=== PATIENT | female | born 1955 | race Caucasian/White ===

== ENCOUNTER → 2018-09-06 | Outpatient (CLI) | payer MEDICARE, OTHER ==
[~2018-09-06] MED LIST: ALBU3IS INH; AZIT250 PO; Acidophilus La100 GM; Amlodipine Bes2.5 MG PO; BUDE6HFA INH; Citalopram HBr10 MG PO; DELTASONE20 MG PO; DOXY100 PO; Estradiol0.5 MG PO; HORMONES; Hydrocodone-Ap1 EA20 PO; METPHE10 PO; OXYACE5T PO; PRED10 PO; Prednisone20 MG PO; TIOT18 PO; TRAZ100 PO; TRAZ50 PO
[2018-09-06 14:39] LABS: BASOPHILS ABSOLUTE AUTO 0.04 K/mm3 (0.00-0.23); BASOPHILS PERCENT AUTO 0 % (0-2); EOSINOPHILS ABSOLUTE AUTO 0.14 K/mm3 (0.00-0.68); EOSINOPHILS PERCENT AUTO 1 % (0-6); Hematocrit 39.2 % (33.0-51.0); Hemoglobin 12.9 g/dL (11.5-16.0); IMMATURE GRAN ABSOLUTE AUTO 0.05 K/mm3 (0.00-0.10); IMMATURE GRAN PERCENT AUTO 0 % (0-1); LYMPHOCYTES ABSOLUTE AUTO 2.52 K/mm3 (0.84-5.20); LYMPHOCYTES PERCENT AUTO 21 % (21-46); MONOCYTES ABSOLUTE AUTO 0.88 K/mm3 (0.16-1.47); MONOCYTES PERCENT AUTO 7 % (4-13); Mean Corpuscular HGB 31.2 pg (26.0-34.0); Mean Corpuscular HGB Conc 32.9 g/dL (31.5-36.5); Mean Corpuscular Volume 95 fL (80-100); Mean Platelet Volume 10.5 fL (9.1-12.4); NEUTROPHILS ABSOLUTE AUTO 8.39 K/mm3 (1.96-9.15); NEUTROPHILS PERCENT AUTO 70 % (41-73); Platelet Count 185 K/mm3 (150-400); RDW Coefficient Variation 14.2 % (11.7-14.2); RDW Standard Deviation 49.6 fL (35.1-46.3); Red Blood Cell Count 4.14 M/mm3 (3.80-5.20); White Blood Cell Count 12.02 K/mm3 (4.00-11.30)
[2018-09-06 14:57] LABS: Albumin, Blood 3.4 g/dL (3.4-5.0); Albumin/Globulin Ratio 1.1 (0.8-1.8); Bilirubin, Total 0.3 mg/dL (0.1-1.0); Bun/Creatinine Ratio 15.6 (12.0-20.0); Calcium, Blood 9.3 mg/dL (8.5-10.1); Creatinine, Blood 1.22 mg/dL (0.40-1.00); Globulin, Blood 3.1 g/dL (2.2-4.0); Potassium, Blood 4.3 mmol/L (3.5-5.5); Total Protein, Blood 6.5 g/dL (6.4-8.2)
== END | disposition home or self-care (01) ==
LOC: LAB SHORT 14:35 → LAB EV 14:35
PROVIDERS: Family Medicine
DX: R10.11 Right upper quadrant pain (principal)
CPT/HCPCS: 80053; 85025

== ENCOUNTER 2018-09-23 18:40 | Inpatient (IN) | payer MEDICARE, OTHER ==
[~2018-09-23] VITALS: Ht 162.6 cm; Wt 80.6 kg
[~2018-09-23 18:40] MED LIST changes: -Acidophilus La100 GM; -DELTASONE20 MG PO; -DOXY100 PO
[2018-09-23 19:14] LABS: BASOPHILS ABSOLUTE AUTO 0.03 K/mm3 (0.00-0.23); BASOPHILS PERCENT AUTO 1 % (0-2); EOSINOPHILS ABSOLUTE AUTO 0.02 K/mm3 (0.00-0.68); EOSINOPHILS PERCENT AUTO 0 % (0-6); Hematocrit 45.5 % (33.0-51.0); Hemoglobin 14.4 g/dL (11.5-16.0); IMMATURE GRAN ABSOLUTE AUTO 0.01 K/mm3 (0.00-0.10); IMMATURE GRAN PERCENT AUTO 0 % (0-1); LYMPHOCYTES PERCENT AUTO 32 % (21-46); MONOCYTES ABSOLUTE AUTO 0.42 K/mm3 (0.16-1.47); MONOCYTES PERCENT AUTO 8 % (4-13); Mean Corpuscular HGB 31.3 pg (26.0-34.0); Mean Corpuscular HGB Conc 31.6 g/dL (31.5-36.5); Mean Corpuscular Volume 99 fL (80-100); Mean Platelet Volume 10.5 fL (9.1-12.4); NEUTROPHILS ABSOLUTE AUTO 2.96 K/mm3 (1.96-9.15); NEUTROPHILS PERCENT AUTO 59 % (41-73); Platelet Count 180 K/mm3 (150-400); White Blood Cell Count 5.04 K/mm3 (4.00-11.30)
[2018-09-23 19:26] LABS: Alanine Aminotransfer (ALT/SGP 42 U/L (12-78); Albumin, Blood 3.6 g/dL (3.4-5.0); Alk Phos 64 U/L (50-136); Anion Gap 5 mmol/L (6-16); Aspartate Aminotrans (AST/SGOT 28 U/L (12-37); Bilirubin, Total 0.3 mg/dL (0.1-1.0); Blood Urea Nitrogen 11 mg/dL (8-24); Bun/Creatinine Ratio 15.2 (12.0-20.0); CO2, Blood 29 mmol/L (21-32); Calcium, Blood 8.7 mg/dL (8.5-10.1); Chloride, Blood 107 mmol/L (98-108); Creatinine, Blood 0.72 mg/dL (0.40-1.00); Globulin, Blood 3.7 g/dL (2.2-4.0); Glomerular Filtration Rate >60 (60-); Glucose, Blood 94 mg/dL (70-99); Sodium, Blood 141 mmol/L (136-145); Total Protein, Blood 7.3 g/dL (6.4-8.2)
--- NOTE | 2018-09-24 04:19 | NUR ---
SHIFT SUMMARY RECEIVED REPORT FROM ED RN. ARRIVED TO MEDICAL UNIT @ 2206 VIA STRETCHER; ASSISTANCE REQUIRED WITH TRANSFER. HOWEVER, PATIENT CAN AMBULATE WITH 1 ASSIST TO BATHROOM. STEADY GAIT NOTED. ORIENTED TO ROOM AND CALL SYSTEM. A/O X4, ABLE TO MAKE NEEDS KNOWN. COOPERATIVE WITH CARE; HOWEVER, DID INSIST ON BEING FINISHED SO THAT SHE COULD GO TO SLEEP. CALLS AND ANSWERS QUESTIONS APPROPRIATELY; FOREGETFULNESS NOTED AT TIMES. STATED THAT FATHER ABOUT 5 DAYS AGO AND APPEARS DEPRESSED AND ALSO TEARFUL. TELE RUNNING NSR @ 79 PER PCU TRANSPLANT IMMUNOLOGIST. >90% ON 3L VIA NC. C/O PAIN/DISCOMFORT TO L FLANK WHICH SHE INJURED DURING A FALL FROM A LADDER X3 DAYS AGO; MEDICATED PER EMAR. VSS/AFEBRILE. NO ACUTE CHANGES NOTED. BED IN LOWEST POSITION. CALL LIGHT WITHIN REACH. WCTM. REPORT TO ONCOMING RN.
[2018-09-24 04:51] LABS: Hematocrit 41.6 % (33.0-51.0); Hemoglobin 13.3 g/dL (11.5-16.0); Mean Corpuscular HGB 31.2 pg (26.0-34.0); Mean Corpuscular Volume 98 fL (80-100); Mean Platelet Volume 10.4 fL (9.1-12.4); Platelet Count 161 K/mm3 (150-400); RDW Coefficient Variation 13.8 % (11.7-14.2); RDW Standard Deviation 50.4 fL (35.1-46.3); Red Blood Cell Count 4.26 M/mm3 (3.80-5.20); White Blood Cell Count 3.01 K/mm3 (4.00-11.30)
[2018-09-24 05:42] LABS: Alanine Aminotransfer (ALT/SGP 36 U/L (12-78); Albumin, Blood 3.1 g/dL (3.4-5.0); Albumin/Globulin Ratio 0.9 (0.8-1.8); Alk Phos 55 U/L (50-136); Anion Gap 5 mmol/L (6-16); Aspartate Aminotrans (AST/SGOT 22 U/L (12-37); Bilirubin, Total 0.5 mg/dL (0.1-1.0); Blood Urea Nitrogen 15 mg/dL (8-24); Bun/Creatinine Ratio 20.6 (12.0-20.0); CO2, Blood 29 mmol/L (21-32); Calcium, Blood 8.3 mg/dL (8.5-10.1); Chloride, Blood 107 mmol/L (98-108); Creatinine, Blood 0.73 mg/dL (0.40-1.00); Globulin, Blood 3.4 g/dL (2.2-4.0); Glomerular Filtration Rate >60 (60-); Glucose, Blood 158 mg/dL (70-99); Potassium, Blood 4.5 mmol/L (3.5-5.5); Sodium, Blood 141 mmol/L (136-145); Total Protein, Blood 6.5 g/dL (6.4-8.2)
--- NOTE | 2018-09-24 15:25 | NUR ---
SUMMARY PT IS A/O X4, PLEASANT/COOPERATIVE AFFECT. DX COPD EXAC. SHE STATE SHORTNESS OF BREATH SOMEWHAT IMPROVED HOWEVER CONTINUES WITH EXERTION. SBA TO BR. SHE DOES NOT USE O2 @ HOME, HAVE TITRATED DOWN TO 2.5L 93% RT PROVIDING NEB TX'S. LUNGS THIS AM DECREASED, COARSE, SOME UPPER AIRWAY WHEEZE THIS AM HOWEVER NONE SINCE. SHE STATE MINIMAL NATIONAL SALES MANAGER COUGH. SHE HAD L SIDED PAIN THIS AM R/T FALL FROM LADDER @ HOME, PRN NORCO & TYLENOL GIVEN FOR RELIEF. VSS.
--- NOTE | 2018-09-25 07:33 | NUR ---
09/25/18 0600 SLEPT ON AND OFF THIS SHIFT. MEDICATED TWICE FOR "SIDE OF STOMACH" DISCOMFORT. VITALS STABLE. TAKING ORAL INTAKE WELL. UNEVENTFUL NIGHT.
--- NOTE | 2018-09-25 16:09 | NUR ---
SUMMARY PT CONTINUES SOB WITH EXERTION, @ X'S WHILE @ REST. RT PROVIDING NEB TX'S NEEDED. PT STATE HOPEFUL TO GO HOME HOWEVER DR CAMPOS STATE 2 LEAST 1 MORE DAY. HOME O2 EVAL COMPLETED, RT STATE PT BECAME VERY SOB WITH SM AMT EXERT, REQUIRING 1L O2, BIOX 92%. LUNGS VERY DECREASED T/O WITH WHEEZES @ X'S. SHE AMBULATES WITH FWW, SBA, CALLS APPROP. SHE CONTINUES TO REPORT L SIDE PAIN R/T FALL @ HOME, TYLENOL & NORCO GIVEN FOR RELIEF. SHE WAS CONCERNED THAT FEET WERE SWELLING YESTERDAY HOWEVER ONLY TRACE EDEMA NOTED. ENCOURAGED TO ELEVATE @ REST.
--- NOTE | 2018-09-26 04:54 | NUR ---
SHIFT SUMMARY PT HAS RESTED WELL THIS SHIFT. SHE HAS BEEN INDEPENDENT IN THE ROOM. PT ANTICIPAITING DC TODAY AND HAS BEEN SWITCHED TO ORAL PREDNISONE. PT CONTINUES TO BE VERY SOB WITH ANY EXERTION 1.5L O2 IN PLACE. LUNGS WITH EXPIRATORY WHEEZES T/O. SHE CONTINUES TO COMPLAIN OF RIB PAIN R/T THE FALL HE SUSTAINED AT HOME. MEDICATED WITH NORCO WHICH PROIVDED RELIEF. NO ACUTE CHANGES. WILL CONTINUE TO MONITOR AND REPORT TO ONCOMING RN.
[2018-09-26] MEDS ORDERED: DOXY100 PO (15:21)
[2018-09-26] MEDS ORDERED: Acidophilus La100 GM (15:22)
[2018-09-26] MEDS ORDERED: DELTASONE20 MG PO (15:23)
--- NOTE | 2018-09-26 16:24 | NUR ---
PATIENT DISCHARGED TO HOME. NURSE FAXED MEDS TO PHARMACY OF CHOICE. NEW MEDICATIONS WERE GONE OVER WITH PATIENT AND PATIENT EDUCATED REGARDING ADMINISTRATION OF THEM. PATIENT TO HAVE HOME O2 DELIVERED. IV PREVIOUSLY REMOVED. NO SS OF INFECTION NOTED. PATIENT TAKEN OUT BY WC BY NURSE AND TAKEN HOME BY DAUGHTER.
== END 2018-09-26 16:08 | disposition home or self-care (01) | DRG 189 ==
LOC: ER 18:40 → MEDS 21:02 → ENPENDDIS 09-26 14:49 → MEDS 09-26 16:08
PROVIDERS: Emergency Medicine; ADMIT Internal Medicine
DX: J96.01 Acute respiratory failure with hypoxia (principal); J44.1 Chronic obstructive pulmonary disease with (acute) exacerbation; F32.9 Major depressive disorder, single episode, unspecified; F90.9 Attention-deficit hyperactivity disorder, unspecified type; G89.29 Other chronic pain; I10 Essential (primary) hypertension; E66.9 Obesity, unspecified; Z68.29 Body mass index [BMI] 29.0-29.9, adult; Z79.899 Other long term (current) drug therapy
CPT/HCPCS: 36415; 71046; 80053; 83880; 84145; 85025; 85027; 87070; 87205; 93005; 93010; 94640; 94644; 94760; 94761; 96374; 99285-25; J1650; J1956; J2930; J3010

== ENCOUNTER 2019-07-23 06:43 | Day surgery (SDC) | payer MEDICARE, OTHER ==
[~2019-07-23] VITALS: Ht 162.6 cm; Wt 81.0 kg
[~2019-07-23 06:43] MED LIST changes: +AMLO10 PO; +Accuneb1.25 MG/3 INH; +Acidophilus La100 GM; +CITA20 PO; +DELTASONE20 MG PO; +DOXY100 PO; +ESTRADIOL1 MG PO; +FLUT1DIS8 INH; +METPHE10; +Norco 10-325 T1 EACH; +PROAIR RESPICL90 MCG INH; +TUDORZA PRESS400 MCG INH
== END 2019-07-23 09:00 | disposition home or self-care (01) ==
LOC: ORSCSDS 06:43
PROVIDERS: Ophthalmology
PROC: 08RK3JZ Replacement of Left Lens with Synthetic Substitute, Percutaneous Approach (ICD-10-PCS; principal; 2019-07-23 08:00)
DX: H25.12 Age-related nuclear cataract, left eye (principal); I10 Essential (primary) hypertension; M79.7 Fibromyalgia; J44.9 Chronic obstructive pulmonary disease, unspecified; Z87.891 Personal history of nicotine dependence; Z79.899 Other long term (current) drug therapy
CPT/HCPCS: J2250; J2405; J3010; J3301; J7030; V2632

== ENCOUNTER 2020-01-17 22:47 | Inpatient (IN) | payer MEDICARE, OTHER ==
[~2020-01-17] VITALS: Ht 162.6 cm; Wt 82.0 kg
[~2020-01-17 22:47] MED LIST changes: -METPHE10; -Norco 10-325 T1 EACH; +Norco 10-325 T1 EACH PO
[2020-01-17] MEDS ORDERED: Simvastatin20 MG PO (23:28)
[2020-01-17] MEDS ORDERED: Prempro 0.3 MG/1 TAB PO (23:28)
[2020-01-17] MEDS ORDERED: Ritalin10 MG PO (23:28)
[2020-01-17 23:30] LABS: BASOPHILS ABSOLUTE AUTO 0.03 K/mm3 (0.00-0.23); BASOPHILS PERCENT AUTO 0 % (0-2); EOSINOPHILS ABSOLUTE AUTO 0.09 K/mm3 (0.00-0.68); EOSINOPHILS PERCENT AUTO 1 % (0-6); Hematocrit 38.8 % (33.0-51.0); Hemoglobin 12.6 g/dL (11.5-16.0); IMMATURE GRAN ABSOLUTE AUTO 0.04 K/mm3 (0.00-0.10); IMMATURE GRAN PERCENT AUTO 0 % (0-1); LYMPHOCYTES ABSOLUTE AUTO 3.61 K/mm3 (0.84-5.20); LYMPHOCYTES PERCENT AUTO 29 % (21-46); MONOCYTES ABSOLUTE AUTO 0.72 K/mm3 (0.16-1.47); MONOCYTES PERCENT AUTO 6 % (4-13); Mean Corpuscular HGB 30.7 pg (26.0-34.0); Mean Corpuscular HGB Conc 32.5 g/dL (31.5-36.5); Mean Corpuscular Volume 94 fL (80-100); Mean Platelet Volume 10.3 fL (9.1-12.4); NEUTROPHILS ABSOLUTE AUTO 7.82 K/mm3 (1.96-9.15); NEUTROPHILS PERCENT AUTO 64 % (41-73); Platelet Count 168 K/mm3 (150-400); RDW Coefficient Variation 13.9 % (11.7-14.2); RDW Standard Deviation 48.2 fL (35.1-46.3); Red Blood Cell Count 4.11 M/mm3 (3.80-5.20); White Blood Cell Count 12.31 K/mm3 (4.00-11.30)
[2020-01-17 23:50] LABS: Alanine Aminotransfer (ALT/SGP 46 U/L (12-78); Albumin, Blood 3.6 g/dL (3.4-5.0); Alk Phos 72 U/L (50-136); Anion Gap 4 mmol/L (6-16); Aspartate Aminotrans (AST/SGOT 24 U/L (12-37); Bilirubin, Total 0.2 mg/dL (0.1-1.0); Blood Urea Nitrogen 19 mg/dL (8-24); Bun/Creatinine Ratio 28.4 (12.0-20.0); CO2, Blood 34 mmol/L (21-32); Calcium, Blood 8.7 mg/dL (8.5-10.1); Chloride, Blood 102 mmol/L (98-108); Creatinine, Blood 0.67 mg/dL (0.40-1.00); Globulin, Blood 3.6 g/dL (2.2-4.0); Glomerular Filtration Rate >60 (60-); Glucose, Blood 168 mg/dL (70-99); Potassium, Blood 3.9 mmol/L (3.5-5.5); Sodium, Blood 140 mmol/L (136-145); Total Protein, Blood 7.2 g/dL (6.4-8.2); Troponin I <0.015 ng/mL (0.000-0.040)
[2020-01-18 04:32] LABS: BASOPHILS ABSOLUTE AUTO 0.01 K/mm3 (0.00-0.23); BASOPHILS PERCENT AUTO 0 % (0-2); EOSINOPHILS PERCENT AUTO 0 % (0-6); Hematocrit 36.6 % (33.0-51.0); Hemoglobin 11.6 g/dL (11.5-16.0); IMMATURE GRAN ABSOLUTE AUTO 0.02 K/mm3 (0.00-0.10); IMMATURE GRAN PERCENT AUTO 0 % (0-1); LYMPHOCYTES ABSOLUTE AUTO 0.29 K/mm3 (0.84-5.20); LYMPHOCYTES PERCENT AUTO 3 % (21-46); MONOCYTES ABSOLUTE AUTO 0.07 K/mm3 (0.16-1.47); MONOCYTES PERCENT AUTO 1 % (4-13); Mean Corpuscular HGB 30.1 pg (26.0-34.0); Mean Corpuscular HGB Conc 31.7 g/dL (31.5-36.5); Mean Corpuscular Volume 95 fL (80-100); Mean Platelet Volume 10.5 fL (9.1-12.4); NEUTROPHILS PERCENT AUTO 96 % (41-73); Platelet Count 159 K/mm3 (150-400); Red Blood Cell Count 3.85 M/mm3 (3.80-5.20); White Blood Cell Count 9.89 K/mm3 (4.00-11.30)
[2020-01-18 04:56] LABS: Alanine Aminotransfer (ALT/SGP 45 U/L (12-78); Albumin, Blood 3.4 g/dL (3.4-5.0); Alk Phos 67 U/L (50-136); Anion Gap 5 mmol/L (6-16); Aspartate Aminotrans (AST/SGOT 21 U/L (12-37); Bilirubin, Total 0.2 mg/dL (0.1-1.0); Blood Urea Nitrogen 23 mg/dL (8-24); Bun/Creatinine Ratio 36.1 (12.0-20.0); CO2, Blood 31 mmol/L (21-32); Calcium, Blood 8.9 mg/dL (8.5-10.1); Chloride, Blood 102 mmol/L (98-108); Creatinine, Blood 0.64 mg/dL (0.40-1.00); Globulin, Blood 3.4 g/dL (2.2-4.0); Glomerular Filtration Rate >60 (60-); Glucose, Blood 187 mg/dL (70-99); Potassium, Blood 4.2 mmol/L (3.5-5.5); Sodium, Blood 138 mmol/L (136-145); Total Protein, Blood 6.8 g/dL (6.4-8.2)
[2020-01-18 07:53] LABS: Adenovirus Not Detected (NOT DETECT); Bordetella pertussis Not Detected (NOT DETECT); Chlamydophila pneumoniae Not Detected (NOT DETECT); Coronavirus 229E Not Detected (NOT DETECT); Coronavirus HKU1 Not Detected (NOT DETECT); Coronavirus NL63 Not Detected (NOT DETECT); Coronavirus OC43 Not Detected (NOT DETECT); Human Metapneumovirus Not Detected (NOT DETECT); Human Rhinovirus/Enterovirus Not Detected (NOT DETECT); Influenza A/2009-H1 Not Detected (NOT DETECT); Influenza A/H1 Not Detected (NOT DETECT); Influenza A/H3 Not Detected (NOT DETECT); Influenza B Not Detected (NOT DETECT); Mycoplasma pneumoniae Not Detected (NOT DETECT); Parainfluenza Virus 1 Not Detected (NOT DETECT); Parainfluenza Virus 2 Not Detected (NOT DETECT); Parainfluenza Virus 3 Not Detected (NOT DETECT); Parainfluenza Virus 4 Not Detected (NOT DETECT); Respiratory Syncytial Virus Not Detected (NOT DETECT)
--- NOTE | 2020-01-18 18:09 | NUR ---
SHIFT SUMMARY PT AXO, PLEASANT AND COOPERATIVE THOUGH WITHDRAWN. VSS. PT SLEEPING THROUGHOUT THE DAY, SAYS SHE'S VERY TIRED. CONTINUES TO HAVE PAIN IN ABDOMEN AND JOINTS. PT SOB WITH EXERTION, REQUESTED O2 TURNED UP TO 3L. PT 95 % ON 3L AT THIS TIME. SINUS AT 93 PER RESIDENTIAL INSTRUCTOR. PT COMPLAINED OF PAIN 02/04, MEDICATED PER EMAR. NEW IV PLACED THIS SHIFT, SALINE LOCKED AT THIS TIME. PT UP AD JUAN TO BATHROOM. BED IN LOW POSITION, CALL LIGHT WITHIN REACH.
--- NOTE | 2020-01-19 00:50 | NUR ---
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 Results of Abd US completed in ER not on chart by end of this shift. Patient states she is actually feeling much better since Med nebulizers and IV steroids given to her in ER. APAP given to her for pain shortly before she fell asleep this morning.
--- NOTE | 2020-01-19 05:11 | NUR ---
BIOFUELS PLANT SUPERINTENDENT SUMMARY Slept well overnight. Up independently in room. Minimal complaints of discomfort after receiving schedule home pain med at HS. Patient still wearing 3L 02 via nasal [place] which is her home 02 level. Lung sounds remain dim with wheezes.
[2020-01-19] MEDS ORDERED: Prednisone10 MG PO (09:49)
--- NOTE | 2020-01-19 12:27 | NUR ---
DISCHARGE SUMMARY PT DISCHARGED TO HOME. PT LEFT ROOM PRIOR TO THIS NOTE AT ABOUT 1150 VIA WHEELCHAIR WITH CARDROOM WORKER ESCORT. IV DC'D AND BELONGINGS RETURNED. PT EDUCATED ON ALL DISCHARGE INSTRUCTIONS, ALL QUESTIONS ANSWERED. PT AGREES TO FOLLOW UP WITH PCP AND TO TAKE MEDICATIONS PRESCRIBED.
== END 2020-01-19 11:54 | disposition home or self-care (01) | DRG 190 ==
LOC: ER 22:47 → MEDS 22:48
PROVIDERS: Emergency Medicine; ADMIT Internal Medicine
DX: J44.1 Chronic obstructive pulmonary disease with (acute) exacerbation (principal); J96.21 Acute and chronic respiratory failure with hypoxia; M79.7 Fibromyalgia; I10 Essential (primary) hypertension; Z87.891 Personal history of nicotine dependence; E66.9 Obesity, unspecified; Z68.30 Body mass index [BMI] 30.0-30.9, adult; F90.9 Attention-deficit hyperactivity disorder, unspecified type; G89.29 Other chronic pain; Z99.81 Dependence on supplemental oxygen; F41.9 Anxiety disorder, unspecified
CPT/HCPCS: 0099U; 36415; 71045; 76705; 80053; 83880; 84484; 85025; 93005; 93010; 94640; 94644; 94760; 99285-25; A9270; A9270-GY; J1650; J2920; J2930

== ENCOUNTER 2020-01-28 10:23 | Inpatient (IN) | payer MEDICARE, OTHER ==
[~2020-01-28] VITALS: Ht 154.9 cm; Wt 84.8 kg
[~2020-01-28 10:23] MED LIST changes: -AMLO10 PO; -CITA20 PO; -Norco 10-325 T1 EACH PO; +Prednisone10 MG PO; -TUDORZA PRESS400 MCG INH
[2020-01-28 11:09] LABS: BASOPHILS ABSOLUTE AUTO 0.04 K/mm3 (0.00-0.23); BASOPHILS PERCENT AUTO 0 % (0-2); EOSINOPHILS ABSOLUTE AUTO 0.08 K/mm3 (0.00-0.68); EOSINOPHILS PERCENT AUTO 1 % (0-6); Hematocrit 43.2 % (33.0-51.0); IMMATURE GRAN ABSOLUTE AUTO 0.05 K/mm3 (0.00-0.10); IMMATURE GRAN PERCENT AUTO 0 % (0-1); LYMPHOCYTES ABSOLUTE AUTO 5.28 K/mm3 (0.84-5.20); LYMPHOCYTES PERCENT AUTO 42 % (21-46); MONOCYTES ABSOLUTE AUTO 0.72 K/mm3 (0.16-1.47); MONOCYTES PERCENT AUTO 6 % (4-13); Mean Corpuscular HGB 31.2 pg (26.0-34.0); Mean Corpuscular HGB Conc 32.4 g/dL (31.5-36.5); Mean Corpuscular Volume 96 fL (80-100); Mean Platelet Volume 10.5 fL (9.1-12.4); NEUTROPHILS ABSOLUTE AUTO 6.49 K/mm3 (1.96-9.15); NEUTROPHILS PERCENT AUTO 51 % (41-73); Platelet Count 208 K/mm3 (150-400); RDW Standard Deviation 53.2 fL (35.1-46.3); Red Blood Cell Count 4.49 M/mm3 (3.80-5.20); White Blood Cell Count 12.66 K/mm3 (4.00-11.30)
[2020-01-28 11:26] LABS: Alanine Aminotransfer (ALT/SGP 36 U/L (12-78); Albumin, Blood 3.9 g/dL (3.4-5.0); Alk Phos 59 U/L (50-136); Anion Gap 3 mmol/L (6-16); Aspartate Aminotrans (AST/SGOT 18 U/L (12-37); Bilirubin, Total 0.7 mg/dL (0.1-1.0); Blood Urea Nitrogen 17 mg/dL (8-24); CO2, Blood 34 mmol/L (21-32); Chloride, Blood 103 mmol/L (98-108); Creatinine, Blood 0.77 mg/dL (0.40-1.00); Globulin, Blood 3.9 g/dL (2.2-4.0); Glomerular Filtration Rate >60 (60-); Glucose, Blood 95 mg/dL (70-99); Potassium, Blood 3.6 mmol/L (3.5-5.5); Sodium, Blood 140 mmol/L (136-145); Total Protein, Blood 7.8 g/dL (6.4-8.2)
[2020-01-28] MEDS ORDERED: TRAZ100 PO (12:23)
[2020-01-28] MEDS ORDERED: Norco 10-325 T1 EACH PO (12:23)
[2020-01-28] MEDS ORDERED: TUDORZA PRESS400 MCG INH (12:23)
[2020-01-28] MEDS ORDERED: Ritalin10 MG PO (12:24)
[2020-01-28] MEDS ORDERED: METPHE5 PO (12:25)
[2020-01-28] MEDS ORDERED: Prempro 0.3 MG/1 TAB PO (12:25)
[2020-01-28] MEDS ORDERED: Hydrocodone-Ap1 EA20 PO (12:26)
[2020-01-28] MEDS ORDERED: BUDESONIDE-FO10.2 G1 INH (12:28)
[2020-01-28] MEDS ORDERED: CITALOPRAM HBR10 MG PO (12:30)
[2020-01-28] MEDS ORDERED: Simvastatin20 MG PO (12:30)
[2020-01-28] MEDS ORDERED: Duoneb 2.5-0.5 M3 ML NEB (12:31)
[2020-01-28] MEDS ORDERED: AMLO10 PO (12:32)
[2020-01-28 13:33] LABS: Bicarbonate Venous 31.8 mmol/L (24.0-30.0); PCO2 Venous 45.5 mmHg (38-42); PO2 Venous 178 mmHg (38-42); pH Blood Venous 7.47 (7.34-7.37)
[2020-01-28 14:45] LABS: Adenovirus Not Detected (NOT DETECT); Coronavirus 229E Not Detected (NOT DETECT); Coronavirus HKU1 Not Detected (NOT DETECT); Coronavirus NL63 Not Detected (NOT DETECT); Coronavirus OC43 Not Detected (NOT DETECT)
[2020-01-28 14:46] LABS: Bordetella pertussis Not Detected (NOT DETECT); Chlamydophila pneumoniae Not Detected (NOT DETECT); Human Metapneumovirus Not Detected (NOT DETECT); Human Rhinovirus/Enterovirus Not Detected (NOT DETECT); Influenza A/2009-H1 Not Detected (NOT DETECT); Influenza A/H1 Not Detected (NOT DETECT); Influenza A/H3 Not Detected (NOT DETECT); Influenza B Not Detected (NOT DETECT); Mycoplasma pneumoniae Not Detected (NOT DETECT); Parainfluenza Virus 1 Not Detected (NOT DETECT); Parainfluenza Virus 2 Not Detected (NOT DETECT); Parainfluenza Virus 3 Not Detected (NOT DETECT); Parainfluenza Virus 4 Not Detected (NOT DETECT); Respiratory Syncytial Virus Not Detected (NOT DETECT)
--- NOTE | 2020-01-28 17:35 | NUR ---
SHE HAS BEEN ADMITTED TO [facility] FROM [facility]. SHE IS A&O. SHE HAS A KPAD FOR COMFORT. HER PAIN IS ALL OVER FROM FIBROMYALGIA AND ARTHRITIS. SHE HAS ALSO RECEIVED NORCO FOR THE PAIN AND RITALIN PER HER REQUEST SO SHE CAN CONCENTRATE AND FEEL BETTER. HER APPETITE IS GOOD. SOB IS MILD AT REST BUT MODERATE TO SEVERE WHEN UP TO THE BSC. O2 3L. I HEARD A FEW SCATTERED EXP.WHEEZES. NO COUGH NOTED. SHE HAS HER BELONGINGS WITH HER. I ASKED HER TO NOT USE HER HEATING PAD. SHE HAS OUR KPAD FOR COMFORT. LOVENOX HAS BEEN STARTED, HAVE BILATERAL SCD'S. TELE IS NSR.
--- NOTE | 2020-01-28 18:10 | NUR ---
Pt resting in bed upon arrival. Pt reports 0 pain at this time due to recently receiving medication for pain. Pt reports mild but managable dyspnea. She also reports moderate to high anxiety with dyspnea. Listened as Pt reports living with her daughter and at baseline is independent with her ADLs. Pt reports hope to be out of the hospital and breathing well enough for her daughters wedding on February 14. Pt reports when exerting herself she will increase her oxygen to help manage her dyspnea. She states "sometimes I turn it all the way up". Educated Pt on the importance of not sustaining max O2 setting if she is a CO2 retainer. Pt reports needing to use the bedside commode and would like some privacy until finished. After Pt is finished this RN was invited back in to room. Pt appears dyspneic after using commode and reports significant SOB. Educated Pt on distraction techniques. Pt is agreeable for this RN to visit at a later time. Pt's breathing appears to improve by the time of leaving room. Spoke with Bedside RN Umm and discussed case. Palliative Care will F/U with supportive therapeutic visits and Advanced Care Planning if appropriate.
--- NOTE | 2020-01-29 02:54 | NUR ---
64 year old Female with COPD & acute hypoxic resp failure continues on Q 6 hour IV steroids to tx lung inflammation with helpful effect. She is up to bedside commode & is SOB with exertion. She is pleasant & cooperative. CO chronic pain , relieved by kpad & tylenol or bid norco 5/325 mg tab one. Recently dc home 01/19/20 & tapering off oral steroids when she smoked several cigarettes & had acute copd reaction. Encouraged smoking cessation & PT agrees it is time.
[2020-01-29 05:52] LABS: BASOPHILS ABSOLUTE AUTO 0.01 K/mm3 (0.00-0.23); BASOPHILS PERCENT AUTO 0 % (0-2); EOSINOPHILS PERCENT AUTO 0 % (0-6); Hematocrit 37.6 % (33.0-51.0); Hemoglobin 12.3 g/dL (11.5-16.0); IMMATURE GRAN ABSOLUTE AUTO 0.04 K/mm3 (0.00-0.10); IMMATURE GRAN PERCENT AUTO 0 % (0-1); LYMPHOCYTES ABSOLUTE AUTO 0.87 K/mm3 (0.84-5.20); LYMPHOCYTES PERCENT AUTO 8 % (21-46); MONOCYTES ABSOLUTE AUTO 0.11 K/mm3 (0.16-1.47); MONOCYTES PERCENT AUTO 1 % (4-13); Mean Corpuscular HGB 30.4 pg (26.0-34.0); Mean Corpuscular HGB Conc 32.7 g/dL (31.5-36.5); Mean Corpuscular Volume 93 fL (80-100); Mean Platelet Volume 10.5 fL (9.1-12.4); NEUTROPHILS ABSOLUTE AUTO 9.66 K/mm3 (1.96-9.15); NEUTROPHILS PERCENT AUTO 90 % (41-73); Platelet Count 189 K/mm3 (150-400); RDW Coefficient Variation 14.6 % (11.7-14.2); RDW Standard Deviation 49.8 fL (35.1-46.3); Red Blood Cell Count 4.04 M/mm3 (3.80-5.20); White Blood Cell Count 10.69 K/mm3 (4.00-11.30)
--- NOTE | 2020-01-29 15:40 | NUR ---
Pt resting in bed upon arrival. Pt reports pain is managed with current regimen. Pt reports dyspnea is improving. Discussed options with aiding in smoking cessation. Pt reports interest in nicotene gum. Pt reports no other concerns at this time. Spoke with Dr Roy and relayed Pt's request for nicotene gum. Placed order for nicotene gum 2mg Q 2-4 hours PRN. Spoke with Bedside BOGDAN Steiner and discussed case. Palliative Care will remain available.
--- NOTE | 2020-01-29 16:11 | NUR ---
Initial spiritual care note: Pt was dismissive of pastoral care.
--- NOTE | 2020-01-29 18:35 | NUR ---
SHIFT SUMMARY: NO ACUTE CHANGES TO REPORT THIS SHIFT. PT A&O; ANXIOUS; COOPERATIVE WITH CARE. MEDICATED FOR CHRONIC PAIN & ANXIETY PER EMAR. TELE IN PLACE; SR IN 90s. O2 @ 3L VIA NC; 3L @ HOME. PT UP INDEPENDENTLY IN ROOM. STEROIDS CONTINUING; RT FOLLOWING. WCTM.
--- NOTE | 2020-01-30 04:26 | NUR ---
PHYSICAL MEDICINE TEACHER SUMMARY PT A/O X4. INDEPENDENT IN ROOM. ON 2 L O2 VIA NC SATTING IN THE MID 90'S. SOB UPON EXERTION. VSS. SLEPT WELL TONIGHT. PT IV IN L HAND GOT OUT ON SOMETHING AND IT WAS PULLED OUT. GAUZE APPLIED AND COBAN WRAPPED ON HAND FOR PRESSURE. MEDICATED WITH TYLENOL FOR GENERALIZED PAIN. DENIES DIZZINESS, NAUSEA, CHEST PAIN. NO ACUTE CHANGES.
--- NOTE | 2020-01-30 17:22 | NUR ---
PT AOX4 AND COOPERATIVE OF CARE. PT TREATED FOR FIBROMYALGIA PAIN PER EMAR. PT HAS BEEN DOING WELL LESS SOB PER PT STATEMENT. PT HAS BEEN GOOD ABOUT REQUESTING HER NICOTINE GUM PER EMAR. PT USES CALL LIGHT APPROPIRATELY NO DISTRESS NOTED. WILL CONTINUE MONITOR.
[2020-01-31] MEDS ORDERED: Deltasone 10 mg10 MG PO (11:57)
--- NOTE | 2020-01-31 13:18 | NUR ---
PT DISCHARGED AT 1300. PT HAD OT AND PT REVIEW PRIOR DISCHARGE. NO DISTRESS NOTED PT HAD ALL PAPERS REVIEWED AND EDUCATIONAL MATERIAL SENT. PT ESCORTED WITH PERSONAL BELONINGS TO N ENTRANCE VIA WHEEL CHAIR. MEDS FAXED TO PHARMACY.
== END 2020-01-31 13:12 | disposition home or self-care (01) | DRG 189 ==
LOC: ER 10:23 → MEDS 10:24 → ENPENDDIS 01-31 10:00 → MEDS 01-31 13:12
PROVIDERS: Emergency Medicine; ADMIT Internal Medicine
PROC: 5A09357 Assistance with Respiratory Ventilation, Less than 24 Consecutive Hours, Continuous Positive Airway Pressure (ICD-10-PCS; principal; 2020-01-29)
PROC: 8E0ZXY6 Isolation (ICD-10-PCS; 2020-01-29)
DX: J96.21 Acute and chronic respiratory failure with hypoxia (principal); J44.1 Chronic obstructive pulmonary disease with (acute) exacerbation; M79.7 Fibromyalgia; I10 Essential (primary) hypertension; F32.9 Major depressive disorder, single episode, unspecified; F90.9 Attention-deficit hyperactivity disorder, unspecified type; F17.210 Nicotine dependence, cigarettes, uncomplicated; Z99.81 Dependence on supplemental oxygen; E66.9 Obesity, unspecified; Z20.828 Contact with and (suspected) exposure to other viral communicable diseases; E78.5 Hyperlipidemia, unspecified; Z68.37 Body mass index [BMI] 37.0-37.9, adult
CPT/HCPCS: 0099U; 36415; 71045; 80053; 82803; 84145; 85025; 93005; 93010; 94640; 94644; 94660; 94760; 94762; 96372; 96374; 96376; 97110; 97162; 99285-25; A9270; A9270-GY; G0378; J1650; J2920; J2930; U0002

== ENCOUNTER 2020-02-27 13:01 | Observation (INO) | payer MEDICARE, OTHER ==
[~2020-02-27] VITALS: Ht 162.6 cm; Wt 85.9 kg
[~2020-02-27 13:01] MED LIST changes: +AMLO10 PO; +BUDESONIDE-FO10.2 G2 INH; +CITALOPRAM HBR10 MG PO; +Deltasone 10 mg10 MG PO; +IPRAT-ALBUT 0.5-3 ML INH; +METPHE5 PO; +Norco 10-325 T1 EACH PO; +Prempro 0.3 MG/1 TAB PO; +Ritalin10 MG PO; +Simvastatin20 MG PO; +TUDORZA PRESS400 MCG INH
[2020-02-27 13:18] LABS: BASOPHILS ABSOLUTE AUTO 0.05 K/mm3 (0.00-0.23); BASOPHILS PERCENT AUTO 0 % (0-2); EOSINOPHILS ABSOLUTE AUTO 0.14 K/mm3 (0.00-0.68); EOSINOPHILS PERCENT AUTO 1 % (0-6); Hematocrit 47.4 % (33.0-51.0); Hemoglobin 14.9 g/dL (11.5-16.0); IMMATURE GRAN ABSOLUTE AUTO 0.07 K/mm3 (0.00-0.10); IMMATURE GRAN PERCENT AUTO 1 % (0-1); LYMPHOCYTES ABSOLUTE AUTO 4.44 K/mm3 (0.84-5.20); LYMPHOCYTES PERCENT AUTO 35 % (21-46); MONOCYTES ABSOLUTE AUTO 0.83 K/mm3 (0.16-1.47); MONOCYTES PERCENT AUTO 7 % (4-13); Mean Corpuscular HGB 30.3 pg (26.0-34.0); Mean Corpuscular HGB Conc 31.4 g/dL (31.5-36.5); Mean Corpuscular Volume 96 fL (80-100); Mean Platelet Volume 9.9 fL (9.1-12.4); NEUTROPHILS ABSOLUTE AUTO 7.03 K/mm3 (1.96-9.15); NEUTROPHILS PERCENT AUTO 56 % (41-73); Platelet Count 258 K/mm3 (150-400); RDW Coefficient Variation 14.3 % (11.7-14.2); RDW Standard Deviation 51.3 fL (35.1-46.3); Red Blood Cell Count 4.92 M/mm3 (3.80-5.20); White Blood Cell Count 12.56 K/mm3 (4.00-11.30)
[2020-02-27 13:37] LABS: Alanine Aminotransfer (ALT/SGP 42 U/L (12-78); Albumin, Blood 3.6 g/dL (3.4-5.0); Albumin/Globulin Ratio 0.9 (0.8-1.8); Alk Phos 67 U/L (50-136); Anion Gap 7 mmol/L (6-16); Aspartate Aminotrans (AST/SGOT 22 U/L (12-37); Bilirubin, Total 0.8 mg/dL (0.1-1.0); Blood Urea Nitrogen 19 mg/dL (8-24); Bun/Creatinine Ratio 23.1 (12.0-20.0); CO2, Blood 31 mmol/L (21-32); Chloride, Blood 101 mmol/L (98-108); Creatinine, Blood 0.82 mg/dL (0.40-1.00); Globulin, Blood 3.9 g/dL (2.2-4.0); Glomerular Filtration Rate >60 (60-); Glucose, Blood 114 mg/dL (70-99); Potassium, Blood 3.8 mmol/L (3.5-5.5); Sodium, Blood 139 mmol/L (136-145); Total Protein, Blood 7.5 g/dL (6.4-8.2)
[2020-02-27] MEDS ORDERED: Cymbalta30 MG PO (14:08)
[2020-02-27] MEDS ORDERED: Ritalin10 MG PO (14:08)
[2020-02-27] MEDS ORDERED: Norco 10-325 T1 EACH PO (14:09)
[2020-02-27] MEDS ORDERED: METPHE10 PO (14:09)
[2020-02-27] MEDS ORDERED: HYDROCODONE-AC1 EAC7 PO (14:09)
[2020-02-27] MEDS ORDERED: TUDORZA PRESS400 MC1 INH (14:11)
[2020-02-27] MEDS ORDERED: PREMPRO 0.3 MG1 EACH PO (14:11)
[2020-02-27] MEDS ORDERED: AMLODIPINE BESYL5 MG PO (14:11)
[2020-02-27] MEDS ORDERED: Prilosec10 M1 PO (14:11)
[2020-02-27] MEDS ORDERED: NORVASC10 MG PO (15:58)
--- NOTE | 2020-02-27 18:39 | NUR ---
SHIFT NOTE PT ARRIVED FROM ER THIS AFTERNOON WITH CO COPD EXACERBATION. PT WAS ON BIBPAP IN THE ER, BUT HAS NOT REQUIRED IT SINCE ARRIVING. PT HAS BEEN SATING WELL ON 2L O2 WHICH IS HER PRESCRIBED HOME DOSE OF O2. DR PACK CALLED FOR RITALIN ORDER AND NOCTIENE GUM.
--- NOTE | 2020-02-28 06:05 | NUR ---
SHIFT SUMMARY Report recieved from BOGDAN Haynes and care assumed at 1900. VSS. pt alert and oriented. See shift assessment for detailed systems assessment. No acute events overnight. No acute changes. No episodes of respiratory distress or respiratory changes. Pt remains on 2L NC. K-pad to back for pain relief. Pt slept throughout shift. uses call light appropriately to express needs. overall, pt stable and no concerns to communicate.
--- NOTE | 2020-02-28 08:34 | NUR ---
Dr. Diaz here to see the patient. States patient will probably discharge today.
[2020-02-28] MEDS ORDERED: PRED20 PO (11:22)
== END 2020-02-28 12:01 | disposition home or self-care (01) ==
LOC: ER 13:01 → PCU 13:02
PROVIDERS: Emergency Medicine; ADMIT Hospitalist
DX: J96.01 Acute respiratory failure with hypoxia (principal); F90.9 Attention-deficit hyperactivity disorder, unspecified type; G89.29 Other chronic pain; J44.1 Chronic obstructive pulmonary disease with (acute) exacerbation; F32.9 Major depressive disorder, single episode, unspecified; I10 Essential (primary) hypertension; E66.9 Obesity, unspecified; F41.9 Anxiety disorder, unspecified; Z79.899 Other long term (current) drug therapy; Z87.891 Personal history of nicotine dependence; Z88.8 Allergy status to other drugs, medicaments and biological substances; Z68.32 Body mass index [BMI] 32.0-32.9, adult
CPT/HCPCS: 36415; 71045; 80053; 85025; 93005; 93010; 94640; 94644; 94660; 94762; 96372; 96374; 96376; 99285-25; A9270; A9270-GY; G0378; J0456; J1650; J2930; J7050

== ENCOUNTER 2020-09-17 04:27 | Emergency (ER) | payer MEDICARE, OTHER ==
[~2020-09-17] VITALS: Ht 160 cm; Wt 79.4 kg
[~2020-09-17 04:27] MED LIST changes: +AMLODIPINE BESYL5 MG PO; +Cymbalta30 MG PO; +HYDROCODONE-AC1 EAC7 PO; +NORVASC10 MG PO; +PRED20 PO; +PREMPRO 0.3 MG1 EACH PO; +Prilosec10 M1 PO; +TUDORZA PRESS400 MC1 INH
[2020-09-17] MEDS ORDERED: Prednisone20 MG PO (05:17)
[2020-12-21] MEDS ORDERED: Deltasone 10 mg10 MG PO (11:06)
[2020-12-21] MEDS ORDERED: AZIT500 PO (11:08)
== END 2020-09-17 06:15 | disposition home or self-care (01) ==
LOC: ER 04:27
DX: J44.1 Chronic obstructive pulmonary disease with (acute) exacerbation (principal); Z79.52 Long term (current) use of systemic steroids; Z79.899 Other long term (current) drug therapy; Z79.51 Long term (current) use of inhaled steroids; Z88.8 Allergy status to other drugs, medicaments and biological substances; Z87.891 Personal history of nicotine dependence
CPT/HCPCS: 93005; 93010; 99285-25

== ENCOUNTER 2021-10-26 23:21 | Emergency (ER) | payer MEDICARE, OTHER ==
[~2021-10-26] VITALS: Ht 170.2 cm; Wt 68.0 kg
[~2021-10-26 23:21] MED LIST changes: +AZIT500 PO; +METPRE4DP PO
[2021-10-27 00:05] LABS: BASOPHILS ABSOLUTE AUTO 0.02 K/mm3 (0.00-0.23); BASOPHILS PERCENT AUTO 0 % (0-2); EOSINOPHILS PERCENT AUTO 0 % (0-6); Hematocrit 38.6 % (33.0-51.0); Hemoglobin 12.9 g/dL (11.5-16.0); IMMATURE GRAN ABSOLUTE AUTO 0.14 K/mm3 (0.00-0.10); IMMATURE GRAN PERCENT AUTO 1 % (0-1); LYMPHOCYTES ABSOLUTE AUTO 4.58 K/mm3 (0.84-5.20); LYMPHOCYTES PERCENT AUTO 25 % (21-46); MONOCYTES ABSOLUTE AUTO 1.23 K/mm3 (0.16-1.47); MONOCYTES PERCENT AUTO 7 % (4-13); Mean Corpuscular HGB 30.4 pg (26.0-34.0); Mean Corpuscular HGB Conc 33.4 g/dL (31.5-36.5); Mean Corpuscular Volume 91 fL (80-100); Mean Platelet Volume 10.8 fL (9.1-12.4); NEUTROPHILS ABSOLUTE AUTO 12.53 K/mm3 (1.96-9.15); NEUTROPHILS PERCENT AUTO 68 % (41-73); Platelet Count 223 K/mm3 (150-400); RDW Coefficient Variation 12.6 % (11.7-14.2); Red Blood Cell Count 4.25 M/mm3 (3.80-5.20)
[2021-10-27 00:17] LABS: Alanine Aminotransfer (ALT/SGP 24 U/L (12-78); Albumin, Blood 3.9 g/dL (3.4-5.0); Albumin/Globulin Ratio 1.1 (0.8-1.8); Alk Phos 85 U/L (50-136); Anion Gap 5 mmol/L (6-16); Aspartate Aminotrans (AST/SGOT 9 U/L (12-37); Bilirubin, Total 0.3 mg/dL (0.1-1.0); Blood Urea Nitrogen 16 mg/dL (8-24); CO2, Blood 32 mmol/L (21-32); Calcium, Blood 9.4 mg/dL (8.5-10.1); Chloride, Blood 103 mmol/L (98-108); Creatinine, Blood 0.73 mg/dL (0.40-1.00); Globulin, Blood 3.4 g/dL (2.2-4.0); Glomerular Filtration Rate >60 (60-); Glucose, Blood 173 mg/dL (70-99); Potassium, Blood 3.3 mmol/L (3.5-5.5); Sodium, Blood 140 mmol/L (136-145); Total Protein, Blood 7.3 g/dL (6.4-8.2)
[2021-10-27 01:11] LABS: Influenza A, PCR NEGATIVE (NEGATIVE); Influenza B, PCR NEGATIVE (NEGATIVE); Resp Syncytial Virus, PCR NEGATIVE (NEGATIVE); SARS-Cov-2 (COVID-19) PCR, MMC NEGATIVE (NEGATIVE)
[2021-10-27] MEDS ORDERED: DOXY100 PO (02:32)
== END 2021-10-27 06:27 | disposition home or self-care (01) ==
LOC: ER 23:21
PROVIDERS: Emergency Medicine
DX: J44.1 Chronic obstructive pulmonary disease with (acute) exacerbation (principal); Z20.822 Contact with and (suspected) exposure to COVID-19; F17.200 Nicotine dependence, unspecified, uncomplicated; Z79.899 Other long term (current) drug therapy; Z88.8 Allergy status to other drugs, medicaments and biological substances
CPT/HCPCS: 0241U; 71045; 80053; 83880; 84484; 85025; 93005; 93010; 94644; 99285-25; A9270

== ENCOUNTER 2021-11-01 22:33 | Inpatient (IN) | payer MEDICARE, OTHER ==
[~2021-11-01] VITALS: Ht 157.5 cm; Wt 71.0 kg
[~2021-11-01 22:33] MED LIST changes: +BREZTRI AEROS10.7 GM INH; -BUDESONIDE-FO10.2 G2 INH; -Cymbalta30 MG PO; +DULO60 PO
[2021-11-01 22:50] LABS: BASOPHILS ABSOLUTE AUTO 0.04 K/mm3 (0.00-0.23); BASOPHILS PERCENT AUTO 0 % (0-2); Base Excess Venous 8.7 mmol/L; Bicarbonate Venous 29.6 mmol/L (24.0-30.0); EOSINOPHILS ABSOLUTE AUTO 0.21 K/mm3 (0.00-0.68); EOSINOPHILS PERCENT AUTO 2 % (0-6); Hematocrit 42.9 % (33.0-51.0); Hemoglobin 14.1 g/dL (11.5-16.0); IMMATURE GRAN ABSOLUTE AUTO 0.04 K/mm3 (0.00-0.10); IMMATURE GRAN PERCENT AUTO 0 % (0-1); LYMPHOCYTES ABSOLUTE AUTO 5.18 K/mm3 (0.84-5.20); LYMPHOCYTES PERCENT AUTO 36 % (21-46); MONOCYTES ABSOLUTE AUTO 0.85 K/mm3 (0.16-1.47); MONOCYTES PERCENT AUTO 6 % (4-13); Mean Corpuscular HGB 30.3 pg (26.0-34.0); Mean Corpuscular HGB Conc 32.9 g/dL (31.5-36.5); Mean Corpuscular Volume 92 fL (80-100); Mean Platelet Volume 10.3 fL (9.1-12.4); NEUTROPHILS ABSOLUTE AUTO 7.94 K/mm3 (1.96-9.15); NEUTROPHILS PERCENT AUTO 56 % (41-73); PCO2 Venous 69.2 mmHg (38-42); PO2 Venous 50.3 mmHg (38-42); Platelet Count 205 K/mm3 (150-400); RDW Standard Deviation 43.8 fL (35.1-46.3); Red Blood Cell Count 4.66 M/mm3 (3.80-5.20); White Blood Cell Count 14.26 K/mm3 (4.00-11.30); pH Blood Venous 7.31 (7.34-7.37)
[2021-11-01 23:09] LABS: Alanine Aminotransfer (ALT/SGP 34 U/L (12-78); Albumin, Blood 4.1 g/dL (3.4-5.0); Albumin/Globulin Ratio 1.2 (0.8-1.8); Alk Phos 74 U/L (50-136); Anion Gap 7 mmol/L (6-16); Aspartate Aminotrans (AST/SGOT 16 U/L (12-37); Bilirubin, Total 0.6 mg/dL (0.1-1.0); Blood Urea Nitrogen 19 mg/dL (8-24); Bun/Creatinine Ratio 28.8 (12.0-20.0); CO2, Blood 33 mmol/L (21-32); Calcium, Blood 9.3 mg/dL (8.5-10.1); Chloride, Blood 99 mmol/L (98-108); Creatinine, Blood 0.66 mg/dL (0.40-1.00); Globulin, Blood 3.4 g/dL (2.2-4.0); Glomerular Filtration Rate >60 (60-); Glucose, Blood 121 mg/dL (70-99); Potassium, Blood 3.5 mmol/L (3.5-5.5); Sodium, Blood 139 mmol/L (136-145); Total Protein, Blood 7.5 g/dL (6.4-8.2)
[2021-11-01 23:50] LABS: Influenza A, PCR NEGATIVE (NEGATIVE); Influenza B, PCR NEGATIVE (NEGATIVE); Resp Syncytial Virus, PCR NEGATIVE (NEGATIVE); SARS-Cov-2 (COVID-19) PCR, MMC NEGATIVE (NEGATIVE)
--- NOTE | 2021-11-02 00:49 | NUR ---
ADMISSION REPORT RECIEVED FROM ER NURSE. PATIENT ARRIVED TO PCU 2 ON ER [facility] WITH NC IN PLACE, RT IN ROOM SETTING UP CPAP. PATIENT SLID OVER TO PCU BED WITH THE HELP OF STAFF. PATIENT CURRENTLY APPEARS IN NO ACUTE RESPIRATORY DISTRESS. ABLE TO ANSWER QUESTIONS APPROPRIATELY AND HOLD CONVERSATION WITH MINIMAL SOB. PATIENT ORIENTED TO ROOM AND CALL LIGHT SYSTEM. BED IN LOW POSITION, CALL LIGHT IN REACH.
[2021-11-02] MEDS ORDERED: HYDACE10B PO (01:07)
[2021-11-02] MEDS ORDERED: METPHE10 PO (01:08)
[2021-11-02 03:51] LABS: Base Excess Venous 8.8 mmol/L; Bicarbonate Venous 30.8 mmol/L (24.0-30.0); PCO2 Venous 61.4 mmHg (38-42); pH Blood Venous 7.36 (7.34-7.37)
[2021-11-02 04:48] LABS: BASOPHILS ABSOLUTE AUTO 0.01 K/mm3 (0.00-0.23); BASOPHILS PERCENT AUTO 0 % (0-2); EOSINOPHILS PERCENT AUTO 0 % (0-6); Hematocrit 35.4 % (33.0-51.0); Hemoglobin 11.5 g/dL (11.5-16.0); IMMATURE GRAN ABSOLUTE AUTO 0.02 K/mm3 (0.00-0.10); IMMATURE GRAN PERCENT AUTO 0 % (0-1); LYMPHOCYTES ABSOLUTE AUTO 0.18 K/mm3 (0.84-5.20); LYMPHOCYTES PERCENT AUTO 2 % (21-46); MONOCYTES ABSOLUTE AUTO 0.07 K/mm3 (0.16-1.47); MONOCYTES PERCENT AUTO 1 % (4-13); Mean Corpuscular HGB 29.8 pg (26.0-34.0); Mean Corpuscular HGB Conc 32.5 g/dL (31.5-36.5); Mean Corpuscular Volume 92 fL (80-100); Mean Platelet Volume 10.8 fL (9.1-12.4); NEUTROPHILS ABSOLUTE AUTO 9.57 K/mm3 (1.96-9.15); NEUTROPHILS PERCENT AUTO 97 % (41-73); Platelet Count 156 K/mm3 (150-400); RDW Standard Deviation 44.1 fL (35.1-46.3); Red Blood Cell Count 3.86 M/mm3 (3.80-5.20); White Blood Cell Count 9.85 K/mm3 (4.00-11.30)
[2021-11-02 05:04] LABS: Anion Gap 7 mmol/L (6-16); Blood Urea Nitrogen 20 mg/dL (8-24); Bun/Creatinine Ratio 28.8 (12.0-20.0); CO2, Blood 33 mmol/L (21-32); Calcium, Blood 8.8 mg/dL (8.5-10.1); Chloride, Blood 99 mmol/L (98-108); Glomerular Filtration Rate >60 (60-); Glucose, Blood 177 mg/dL (70-99); Potassium, Blood 3.2 mmol/L (3.5-5.5); Sodium, Blood 139 mmol/L (136-145)
--- NOTE | 2021-11-02 06:12 | NUR ---
SHIFT SUMMARY PATIENT ALERT AND ORIENTED x4. VSS. PATIENT ON BIPAP FOR REST OF SHIFT WHILE SLEEPING. 02 SATS REMAINED >90% WHILE IN PCU. ABLE TO SPEAK IN COMPLETE SENTENCES WITH EASE. NO CHANGES SINCE ADMISSION NOTE, WILL REPORT TO DAY SHIFT RN.
--- NOTE | 2021-11-02 16:22 | NUR ---
Pt remains A&Ox4. VSS. Afebrile. No c/o pain. BSC with AUO. No BM. Diet advanced- tolerating current diet. Remains on 5L NC (home O2 settings). Frequent rounds to ensure pt safety. Pt encouraged to reposition q2hrs and pressure points offloaded to prevent pressure ulcers. Pt in no apparent distress. Will continue to monitor until transfer of care to oncoming RN.
[2021-11-03 04:45] LABS: Hematocrit 33.6 % (33.0-51.0); Hemoglobin 11.2 g/dL (11.5-16.0); Mean Corpuscular HGB 30.7 pg (26.0-34.0); Mean Corpuscular HGB Conc 33.3 g/dL (31.5-36.5); Mean Corpuscular Volume 92 fL (80-100); Mean Platelet Volume 11.2 fL (9.1-12.4); Platelet Count 145 K/mm3 (150-400); RDW Coefficient Variation 13.3 % (11.7-14.2); RDW Standard Deviation 44.7 fL (35.1-46.3); Red Blood Cell Count 3.65 M/mm3 (3.80-5.20); White Blood Cell Count 11.29 K/mm3 (4.00-11.30)
[2021-11-03 04:49] LABS: Alanine Aminotransfer (ALT/SGP 28 U/L (12-78); Albumin, Blood 3.1 g/dL (3.4-5.0); Albumin/Globulin Ratio 1.1 (0.8-1.8); Alk Phos 48 U/L (50-136); Anion Gap 4 mmol/L (6-16); Aspartate Aminotrans (AST/SGOT 9 U/L (12-37); Bilirubin, Total 0.3 mg/dL (0.1-1.0); Blood Urea Nitrogen 23 mg/dL (8-24); Bun/Creatinine Ratio 36.8 (12.0-20.0); CO2, Blood 34 mmol/L (21-32); Chloride, Blood 103 mmol/L (98-108); Creatinine, Blood 0.63 mg/dL (0.40-1.00); Globulin, Blood 2.9 g/dL (2.2-4.0); Glomerular Filtration Rate >60 (60-); Glucose, Blood 153 mg/dL (70-99); Potassium, Blood 3.9 mmol/L (3.5-5.5); Sodium, Blood 141 mmol/L (136-145)
--- NOTE | 2021-11-03 05:05 | NUR ---
SHIFT SUMMARY MED NO TELE STATUS. PATIENT ALERT AND ORIENTED x4. VSS. PATIENT ON BASELINE 5L NC WITH O2 SATS >90%. CPAP AT BEDSIDE BUT PATIENT DECLINED TO WEAR THIS SHIFT. ADEQUATE OUTPUT THIS SHIFT, SUCCESSFUL BM. NO OTHER ACUTE CHANGES THIS SHIFT. WILL REPORT TO DAY SHIFT RN.
--- NOTE | 2021-11-03 13:25 | NUR ---
Patient is lying in bed and sleeping, She easily awakens when I walk in the room. Pt states that she is not up for conversation but she is welcoming of prayer. I gladly provide prayer. Patient responds well to the prayer and voices appreciation for it. I will continue to remain available to patient and family.
[2021-11-04 04:37] LABS: Hematocrit 34.3 % (33.0-51.0); Hemoglobin 11.3 g/dL (11.5-16.0); Mean Corpuscular HGB 30.5 pg (26.0-34.0); Mean Corpuscular HGB Conc 32.9 g/dL (31.5-36.5); Mean Corpuscular Volume 93 fL (80-100); Mean Platelet Volume 11.3 fL (9.1-12.4); Platelet Count 126 K/mm3 (150-400); RDW Coefficient Variation 13.4 % (11.7-14.2); RDW Standard Deviation 45.5 fL (35.1-46.3); White Blood Cell Count 10.21 K/mm3 (4.00-11.30)
[2021-11-04 05:04] LABS: Anion Gap 3 mmol/L (6-16); Blood Urea Nitrogen 23 mg/dL (8-24); Bun/Creatinine Ratio 42.3 (12.0-20.0); CO2, Blood 33 mmol/L (21-32); Chloride, Blood 104 mmol/L (98-108); Creatinine, Blood 0.54 mg/dL (0.40-1.00); Glomerular Filtration Rate >60 (60-); Glucose, Blood 174 mg/dL (70-99); Potassium, Blood 4.1 mmol/L (3.5-5.5); Sodium, Blood 140 mmol/L (136-145)
--- NOTE | 2021-11-04 07:33 | NUR ---
SHIFT SUMMARY PT AOX4, DYSPNEIC W/EXERTION. SATS MAINTAINED ABOVE 93% ON 2 L VIA NC T/O NIGHT AND MORNING WHILE PT SLEPT AND WAS UP TO BATHROOM AND BACK. AUDIBLE WHEEZING HEARD WHEN PT AMBULATES IN ROOM OR EXERTS HERSELF. TACHYPNEIC W/RR 20-30.
--- NOTE | 2021-11-04 11:18 | NUR ---
Pt was started on heated high flow nasal canula today. RT spoke with MD regarding restriction in lungs and thought pt would benifit from a day on heated high flow to open up airway. Pt reports she feels better on the heated high flow nasal canula and is coughing up more mucus. IV steriods continued per orders. Pt get extremily SOB with any movement and it takes her a bit to recover. RR 20-26 at rest and 30-40 when up to commode. Pt reports she uses 5L baseline at home. She was sating well on 3L prior to starting heated high flow. Case management stopped by and noted that they will try and get the patient a higher flow concentrator when she is discharged, I notified pt of this.
--- NOTE | 2021-11-04 15:52 | NUR ---
Shift note: Pt is A&O, pleasant with cares. Pt anxious on and off when she gets SOB. VSS. Pt started the day on 3L and was sating well. RT spoke with MD regarding constriction in lungs and heated highflow nasal canula was initiated at 30L 25%. Pt reports improvement with heated highflow. Coughing up more sputum and sample was sent to lab. IV abx continued per orders. IV solumedrol also continued per orders. RT giving breathing tx Q4hrs. Pt up to commode to void, did have BM today. Pt gets very SOB when up and tachypnic 30-40s RR. Takes a few minutes for pt to recover, but sats stay in 90s the whole time. No tele at this time. Case management will help get a condenser that will go up to 10L oxygen when it gets closer to d/c.
[2021-11-05 04:37] LABS: Hematocrit 34.4 % (33.0-51.0); Hemoglobin 11.4 g/dL (11.5-16.0); Mean Corpuscular HGB 30.2 pg (26.0-34.0); Mean Corpuscular HGB Conc 33.1 g/dL (31.5-36.5); Mean Corpuscular Volume 91 fL (80-100); Mean Platelet Volume 11.1 fL (9.1-12.4); Platelet Count 127 K/mm3 (150-400); RDW Coefficient Variation 13.5 % (11.7-14.2); RDW Standard Deviation 45.6 fL (35.1-46.3); Red Blood Cell Count 3.77 M/mm3 (3.80-5.20); White Blood Cell Count 7.53 K/mm3 (4.00-11.30)
[2021-11-05 05:16] LABS: Alanine Aminotransfer (ALT/SGP 36 U/L (12-78); Alk Phos 52 U/L (50-136); Anion Gap 4 mmol/L (6-16); Aspartate Aminotrans (AST/SGOT 12 U/L (12-37); Bilirubin, Total 0.4 mg/dL (0.1-1.0); Blood Urea Nitrogen 22 mg/dL (8-24); Bun/Creatinine Ratio 32.2 (12.0-20.0); CO2, Blood 32 mmol/L (21-32); Calcium, Blood 8.9 mg/dL (8.5-10.1); Chloride, Blood 103 mmol/L (98-108); Creatinine, Blood 0.68 mg/dL (0.40-1.00); Globulin, Blood 2.9 g/dL (2.2-4.0); Glomerular Filtration Rate >60 (60-); Glucose, Blood 147 mg/dL (70-99); Potassium, Blood 3.9 mmol/L (3.5-5.5); Sodium, Blood 139 mmol/L (136-145); Total Protein, Blood 5.9 g/dL (6.4-8.2)
--- NOTE | 2021-11-05 06:28 | NUR ---
SHIFT SUMMARY ASSUMED CARE OF PT AT 1900. PT IS A/OX4. HEART SOUNDS REGULAR. LUNG SOUNDS VERY TIGHT. PT RECIEVED BREATHING TREATMENTS T/O THE NIGHT. PT HAD DYSPNEA WITH ACTVITIES.PT WORSE AIRVO AT 30L @ 35%. PT WAS A SBA TO BSC. NO ACTUE EVENTES DURING THE NIGHT.
--- NOTE | 2021-11-05 17:49 | NUR ---
Shift note: Pt is alert and oriented x4, anxious at times. Pt had a panic attack around 1300 where oxygen saturations decreased to low 80s sustained. RT gave 2 breathing treatments and one time does of IV ativan given. Pt was maxed out at one point on the heated high flow nasal canula, called to assess bedside. Pt was able to be titrated back down to 30L 25%. CPAP/ BIPAP was placed in room on standby, but hasn't needed to be used yet. Pt remained sating 89-92% in evening on the heated high flow nasal canula 30L and 25%. VSS, HR was up to 140s briefly during panic attack, but has remained low 100s since event. Pt was changed back to PCU status and tele was re-ordered. PRN ativan PO was ordered for TID, one dose given this evening. Pt had pain in back and headache today, prn tylenol and norco given with good effect. Pt took ritalin this AM and early afternoon, she normally takes it TID, but is worried this medication contributed to panic attack and reports she does not want to take it until she is feeling better respiratory hernandez. IV abx continued per orders. IV solumedrol was given in AM and noonMD d/c the IV order and added PO meds that will be started tomorrow.
--- NOTE | 2021-11-06 05:31 | NUR ---
SHIFT SUMMARY ASSUMED CARE OF PT AT 1900. PT IS A/OX4. HEART SOUNDS REGULAR. LUNG SOUNDS TIGHT. PT REMAINED ON AIRVO AT 30L BUT INCREASED FROM 25% TO 30% DUE TO DESATURATION WHILE IN A DEEP SLEEP. PT STILL HAS DYSPNEA WITH EXERTION, BUT STATES SHE IS FEELING BETTER. NO OTHER ACUTE EVENTS. PT SLEPT T/O THE NIGHT.
--- NOTE | 2021-11-06 17:58 | NUR ---
PT SUMMARY: PT HAD EPISODE OF SOB WITH ANXIETY THIS MORNING UPON GETTING UP TO USE THE BEDSIDE COMMODE, PT HAS AUDIBLE EXPIRATORY WHEEZES, RT WAS IN THE ROOM PT WAS GIVEN INHALERS ALBUTEROL TO HELP WITH THE BREATHING ALSO GOT ONE TIME DOSE OF IV ATIVAN 0.5MG THAT SEEMED TO HELP PT WAS PUT ON CPAP AND ASSISTED BACK TO BED, PT WAS ENCOURAGED TO USE CPAP NEXT TIME SHE USES THE COMMODE PT ALSO SUGGESTED TO GET HER PO ATIVAN BEFORE GETTING UP, PT AGREED PT GOT UP THIS AFTERNOON TO THE BEDSIDE COMMODE WITH HER CPAP ON AND ATIVAN PO WAS GIVEN 15 MINS BEFORE PT DIDNT HAVE ANY PANIC ATTACKS PT MANAGED TO GET ON AND OFF IN THE COMMODE WITHOUT ANY ISSUES. VITALS HAS BEEN STABLE FOR THE SHIFT PT WILL TACH UP TO 150'S DURING PANIC ATTACKS AND/OR AFTER ALBUTEROL INHALERS BUT STAYS BETWEEN 90-110'S AT REST, BP SYSTOLIC 120'S-140'S, SATS ABOVE 92% ALTERNATING AIRVO 30L 30% AND CPAP, AFEBRILE. PT DENIES ANY CHEST PAIN, HAD TYLENOL FOR HEAD ACHE AND WAS EFFECTIVE. HEATING PACK FOR BACK PAIN. NO OTHER ISSUES REPORTED, PT ABLE TO MAKE NEEDS KNOWN, CALLS APPROPRIATELY WILL REPORT TO ONCOMING SHIFT
--- NOTE | 2021-11-07 06:05 | NUR ---
SHIFT SUMMARY ASSUMED CARE OF PT AT 1900. PT IS A/OX4. HEART SOUNDS REGULAR, LUNG SOUNDS TIGHT WITH WHEEZES. PT USED AIRVO T/O THE NIGHT. PT WAS DYSPNIC TO BSC BUT RECOVERED QUICKLY. NO ACUTE EVENTS, PT SLEPT T/O THE NIGHT.
--- NOTE | 2021-11-07 18:25 | NUR ---
PT SUMMARY: PT HAD SMALL EPISODE OF PANIC ATTACK THIS MORNING AFTER USING THE BEDSIDE COMMODE, PT CALMED DOWN AFTER PLACED ON CPAP MACHINE OTHERWISE PT WAS TITRATED BACK TO HOME O2 5L. VITALS HAS BEEN STABLE. PT MEDICATED FOR PAIN AND ANXIETY ALTERNATING RITALIN AND ATIVAN. BREATHING TX PER RT. PT HAS BEEN GETTING UP TO USE THE BEDSIDE COMMODE SBA. NO OTHER ISSUES REPORTED FOR THE SHIFT. WILL REPORT TO ONCOMING SHIFT
--- NOTE | 2021-11-08 04:56 | NUR ---
SHIFT SUMMARY NO ACUTE CHANGES THIS SHIFT. VSS. REMAINS AXO, ANXIETY LESS THIS SHIFT VS SOME PREVIOUS SHIFTS AEB LESS PRN MEDS PER EMAR THIS SHIFT VS PREVIOUS ONES AND NO PANIC ATTACKS PER PT. PT REMAINS SR/ST. ON 6L HIFLO CANNULA FOR HUMIDITY COMFORT. PT HAS BEEN TRYING TO REST OFF AND ON THIS SHIFT. PT ABLE TO OBTAIN SOME REST THIS SHIFT. OTHERWISE, DOOR CLOSED. PT USES CALL LIGHT APPROPRIATELY.
--- NOTE | 2021-11-08 17:11 | NUR ---
END OF SHIFT SUMMARY: PATIENT IS CURRENLTY RESTING IN BED AFTER HAVING A SHOWER. SHE IS USEING 2L VIA NC AND SPO2> 94%. DENIES CHEST PAIN, HAD DECREASED SOB WITH EXERTION, STILL HAS MINOR AMOUNT, BUT THINKS AND LOOKS LIKE SHE IS IMPROVING. PATIENT IS MORE CONFIDENT AND WOULD LIKE TO DISCHARGE TOMORROW. IV PATENT AND FLUSHES WELL. SHE IS ALERT AND ORINETED, GAVE PRN MEDS FOR ANXIETY, AND PAIN. PAIN CONTROLLED. ANXIETY MANAGABLE WITH EMAR MEDS. WILL CONTINUE TO MONITOR AT THIS TIME.
--- NOTE | 2021-11-09 06:14 | NUR ---
SHIFT SUMMARY ASSUMED CARE OF PT AT 1900. PT IS A/OX4. HEART SOUNDS REGULAR. LUNG SOUNDS IMPROVING, THEY WERE TIGHT AT THE BASES. PT WORE 2L NC T/O THE NIGHT. PT WAS INDEPENDENT TO THE BATHROOM. NO NEW COMPLAINTS.
[2021-11-09] MEDS ORDERED: Norco 10-325 T1 EACH PO (11:30)
[2021-11-09] MEDS ORDERED: MEDROXYPROGESTERONE PO (11:33)
[2021-11-09] MEDS ORDERED: ESTROGENS CONJUGATED PO (11:33)
[2021-11-09] MEDS ORDERED: ALBUTEROL1.25 MG/3 NEB (11:36)
[2021-11-09] MEDS ORDERED: Humibid-LA 600600 MG PO (12:43)
[2021-11-09] MEDS ORDERED: ROFL500T PO (12:43)
[2021-11-09] MEDS ORDERED: IPRAT-ALBUT 0.5-3 ML INH (12:45)
[2021-11-09] MEDS ORDERED: LORA.5 PO (12:46)
[2021-11-09] MEDS ORDERED: Prednisone10 MG PO (12:50)
[2021-11-09] MEDS ORDERED: CALCIUM CIT 311 EAC7 PO (12:52)
--- NOTE | 2021-11-09 13:29 | NUR ---
Patient is sitting on EOB and immediately tells me that she will DC soon. She explains how thankful she is that she is doing better and states how grateful she is for the extra divine intervention in her recovery. I provide prayer of praise and blessing. Pt responds well and voices appreciation for the visit. I will continue to remain available to pt and family.
--- NOTE | 2021-11-09 13:35 | NUR ---
Discharge Summary: patient discharged via wheelchair with home O2 portable capacitor, 2l, which is her new baseline exertional therapy. 0L at rest. Patient denies chest pain, did have an episode of severe anxiety with quicker than normal recovery, and was due to positioning and holding breath. Patient has been ST to SR, did have a high WI with anxiety provider told and reviewed, no new orders. patient had complete understanding of discharge instruction with no further questions comments or concerns. all belongings , hardcopy medication were with patient at time of discharge iv dc'd with no complications. Escorted by PCT.
--- NOTE | 2021-11-11 10:13 | NUR ---
Review of patient's records today indicate that discharging provider cancelled the home health orders. No further interventions required. Betsy Lazcano Referral Liaqian
--- NOTE | 2021-11-11 10:13 | NUR ---
Late Entry from 11/08/2021 at 1530: Received referral from nurse healthcare sales representative (Riya Partida) on 11/08/2021. Patient is to discharge 11/09/2021 with orders for home health and elected [facility]. Met with patient to further discuss the above. Patient is somewhat agreeable to the above, however, she does mention several times that her daughter is an lining layer, and would like her daughter to be paid to do her home health. Reiterated to patient that home health and in home caregivers were different. Patient states she is not sure she needs home health, but is agreeable to this process description writer contacting her after discharge to further discuss. Discussed homebound status definition with patient. Patient verbalized understanding. Discussed what home health is vs what it is not (in home caregivers/housekeeping). Patient verbalized understanding. Discussed the next steps in the process of an initial assessment to determine frequency of visits. Again patient verbalized understanding. Offered a chance for patient to ask questions regarding the above of which there were none. At this time patient has no discharge orders entered. Will continue to monitor and follow for discharge. Betsy Lazcano Referral Liaison
== END 2021-11-09 13:35 | disposition home or self-care (01) | DRG 189 ==
LOC: ER 22:33 → PCU 11-02
PROVIDERS: Internal Medicine; Student in an Organized Health Care Education/Training Program; ADMIT Family Medicine
DX: J96.01 Acute respiratory failure with hypoxia (principal); J44.1 Chronic obstructive pulmonary disease with (acute) exacerbation; J96.02 Acute respiratory failure with hypercapnia; F41.9 Anxiety disorder, unspecified; E78.5 Hyperlipidemia, unspecified; M79.7 Fibromyalgia; H53.40 Unspecified visual field defects; F90.9 Attention-deficit hyperactivity disorder, unspecified type; G89.29 Other chronic pain; E66.9 Obesity, unspecified; Z88.8 Allergy status to other drugs, medicaments and biological substances; J45.909 Unspecified asthma, uncomplicated; Z98.51 Tubal ligation status; Z72.89 Other problems related to lifestyle; F17.210 Nicotine dependence, cigarettes, uncomplicated; I10 Essential (primary) hypertension; Z20.822 Contact with and (suspected) exposure to COVID-19
CPT/HCPCS: 0241U; 36415; 71045; 80048; 80053; 82803; 83605; 83880; 84145; 84484; 85025; 85027; 87040; 93005; 93010; 94640; 94644; 94645; 94660; 94664; 94761; 94762; 96374; 99285-25; A9270; J0456; J0696; J1650; J2060; J2930; J7050; J7512

== ENCOUNTER 2021-11-10 07:12 | Emergency (ER) | payer MEDICARE, OTHER ==
[~2021-11-10] VITALS: Ht 162.6 cm; Wt 88.5 kg
[~2021-11-10 07:12] MED LIST changes: +ALBUTEROL1.25 MG/3 NEB; +CALCIUM CIT 311 EAC7 PO; +ESTROGENS CONJUGATED PO; +HYDACE10B PO; +Humibid-LA 600600 MG PO; +LORA.5 PO; +MEDROXYPROGESTERONE PO; +ROFL500T PO
[2021-11-10 07:33] LABS: BASOPHILS ABSOLUTE AUTO 0.02 K/mm3 (0.00-0.23); BASOPHILS PERCENT AUTO 0 % (0-2); EOSINOPHILS ABSOLUTE AUTO 0.34 K/mm3 (0.00-0.68); EOSINOPHILS PERCENT AUTO 2 % (0-6); Hematocrit 43.4 % (33.0-51.0); Hemoglobin 14.3 g/dL (11.5-16.0); IMMATURE GRAN ABSOLUTE AUTO 0.06 K/mm3 (0.00-0.10); IMMATURE GRAN PERCENT AUTO 0 % (0-1); LYMPHOCYTES ABSOLUTE AUTO 8.03 K/mm3 (0.84-5.20); LYMPHOCYTES PERCENT AUTO 49 % (21-46); MONOCYTES ABSOLUTE AUTO 1.17 K/mm3 (0.16-1.47); MONOCYTES PERCENT AUTO 7 % (4-13); Mean Corpuscular HGB 30.6 pg (26.0-34.0); Mean Corpuscular HGB Conc 32.9 g/dL (31.5-36.5); Mean Corpuscular Volume 93 fL (80-100); Mean Platelet Volume 10.4 fL (9.1-12.4); NEUTROPHILS ABSOLUTE AUTO 6.82 K/mm3 (1.96-9.15); NEUTROPHILS PERCENT AUTO 42 % (41-73); Platelet Count 224 K/mm3 (150-400); RDW Coefficient Variation 13.6 % (11.7-14.2); RDW Standard Deviation 46.8 fL (35.1-46.3); Red Blood Cell Count 4.67 M/mm3 (3.80-5.20); White Blood Cell Count 16.44 K/mm3 (4.00-11.30)
[2021-11-10 07:56] LABS: Alanine Aminotransfer (ALT/SGP 60 U/L (12-78); Albumin/Globulin Ratio 1.2 (0.8-1.8); Alk Phos 89 U/L (50-136); Anion Gap 4 mmol/L (6-16); Aspartate Aminotrans (AST/SGOT 19 U/L (12-37); Bilirubin, Total 0.6 mg/dL (0.1-1.0); Blood Urea Nitrogen 19 mg/dL (8-24); Bun/Creatinine Ratio 27.5 (12.0-20.0); CO2, Blood 34 mmol/L (21-32); Calcium, Blood 9.2 mg/dL (8.5-10.1); Chloride, Blood 101 mmol/L (98-108); Creatinine, Blood 0.69 mg/dL (0.40-1.00); Globulin, Blood 3.2 g/dL (2.2-4.0); Glomerular Filtration Rate >60 (60-); Glucose, Blood 129 mg/dL (70-99); Potassium, Blood 3.8 mmol/L (3.5-5.5); Sodium, Blood 139 mmol/L (136-145); Total Protein, Blood 7.2 g/dL (6.4-8.2)
[2021-11-10 11:28] LABS: PCO2 Arterial 56.5 mmHg (35-45); PO2 Arterial 93.8 mmHg (80-100); pH Blood Arterial 7.39 (7.35-7.45)
== END 2021-11-10 15:34 | disposition home or self-care (01) ==
LOC: ER 07:12
PROVIDERS: Emergency Medicine; Internal Medicine
DX: J44.1 Chronic obstructive pulmonary disease with (acute) exacerbation (principal); I10 Essential (primary) hypertension; E78.5 Hyperlipidemia, unspecified; F17.200 Nicotine dependence, unspecified, uncomplicated; Z79.899 Other long term (current) drug therapy
CPT/HCPCS: 36600; 71045; 80053; 82803; 84145; 84484; 85025; 93005; 93010; 94640; 94660; 96374; 99285-25; J2930

== ENCOUNTER 2023-04-11 19:34 | Observation (INO) | payer MEDICARE, OTHER ==
[~2023-04-11] VITALS: Ht 162.6 cm; Wt 68.0 kg
[2023-04-11 23:19] LABS: BASOPHILS ABSOLUTE AUTO 0.03 K/mm3 (0.00-0.23); BASOPHILS PERCENT AUTO 0 % (0-2); EOSINOPHILS ABSOLUTE AUTO 0.18 K/mm3 (0.00-0.68); EOSINOPHILS PERCENT AUTO 2 % (0-6); Hematocrit 38.4 % (33.0-51.0); Hemoglobin 12.6 g/dL (11.5-16.0); IMMATURE GRAN ABSOLUTE AUTO 0.03 K/mm3 (0.00-0.10); IMMATURE GRAN PERCENT AUTO 0 % (0-1); LYMPHOCYTES ABSOLUTE AUTO 2.19 K/mm3 (0.84-5.20); LYMPHOCYTES PERCENT AUTO 21 % (21-46); MONOCYTES ABSOLUTE AUTO 0.68 K/mm3 (0.16-1.47); MONOCYTES PERCENT AUTO 7 % (4-13); Mean Corpuscular HGB Conc 32.8 g/dL (31.5-36.5); Mean Corpuscular Volume 94 fL (80-100); Mean Platelet Volume 11.3 fL (9.1-12.4); NEUTROPHILS ABSOLUTE AUTO 7.31 K/mm3 (1.96-9.15); NEUTROPHILS PERCENT AUTO 70 % (41-73); Platelet Count 183 K/mm3 (150-400); RDW Coefficient Variation 12.7 % (11.7-14.2); RDW Standard Deviation 43.8 fL (35.1-46.3); Red Blood Cell Count 4.07 M/mm3 (3.80-5.20); White Blood Cell Count 10.42 K/mm3 (4.00-11.30)
[2023-04-11 23:30] LABS: Albumin, Blood 3.9 g/dL (3.4-5.0); Albumin/Globulin Ratio 1.2 (0.8-1.8); Bilirubin, Total 0.5 mg/dL (0.1-1.0); Bun/Creatinine Ratio 19.6 (12.0-20.0); Calcium, Blood 9.5 mg/dL (8.5-10.1); Creatinine, Blood 0.46 mg/dL (0.40-1.00); Globulin, Blood 3.3 g/dL (2.2-4.0); Potassium, Blood 3.7 mmol/L (3.5-5.5); Total Protein, Blood 7.2 g/dL (6.4-8.2)
[2023-04-12] VITALS (11 sets, daily range): BP systolic 111–153; BP diastolic 62–107
--- NOTE | 2023-04-12 06:37 | NUR ---
NOC SHIFT SUMMARY PT ARRIVED TO U 12 @ APPROXIMATELY 0300. ALERT AND ORIENTED, TITRATED DOWN TO 4-5L NC WITH SATS IN MID TO HIGH 90S. DENIES PAIN OR DISCOMFORT. ORIENTED TO ROOM AND CALL LIGHT. BED ALARM SET AND EDUCATED ON NEED TO CALL FOR ASSISTANCE. DENIES IGNITION SOURCES, IGNITION RISK ASSESSMENT COMPLETE. WILL PASS ON TO DAY RN
--- NOTE | 2023-04-12 09:45 | NUR ---
CARE ASSUMPTION THIS RN ASSUMED CARE AT 0700. VITAL SIGNS STABLE. SPOI2 >90% ON 4.5L NC.MEDICAL NO TELE. PATIENT IS ALERT AND ORIENTED X4. PERRLA. PATIENT REPORTS NO PAIN, CHEST PAIN/PRESSURE, OR SHORTNESS OF BREATH. SEE SHIFT ASSESSMENT FOR FURTHER DETIALS. MD PACK AND TEAM IN ROOM AND DISCUSSED PLAN OF CARE. PLAN OF CARE IS UP TO DATE. PATIENT INDEPDENT AND CALLS IF NEEDING ASSITANCE.
--- NOTE | 2023-04-12 13:12 | NUR ---
WASTE DOCUMENTATION: Ritalin 15 mg was given to the patient twice this morning, and 5 mg was wasted each time of the 10 mg tablet. Total waste: 10 mg (two 1/2 tablets) Witnessed by Ivy Garcia and Loretta Martínez Unable to document waste in Pyxis due to medication being delivered directly from the pharmacy, and not kept in Pyxis.
--- NOTE | 2023-04-12 16:54 | NUR ---
SHIFT SUMMARY patient neuro remains unchaged. vital signs stable. patient has been indepdent in the room and calls when needing assistances. patient uses call light approrpiately. no acute changes. plan of care remains up to date.
--- NOTE | 2023-04-13 03:45 | NUR ---
SHIFT SUMMARY. SHIFT HAS BEEN UNREMARKABLE. PT IS AOX4, PLEASANT, COOPERATIVE WITH CARE. COMPLAINTS OF HEADACHE EARLY IN SHIFT THAT WERE ALLEVIATED WITH PAIN MEDICATION ADMINISTRATION. PT HAS BEEN SLEEPING SINCE. SATTING WELL ON 3 L O2 VIA NC. CALLS APPROPRIATELY. BED LOCKED IN LOWEST POSITION. CALL LIGHT LEFT WITHIN REACH.
[2023-04-13 04:30] VITALS: BP 126/78
[2023-04-13 07:24] VITALS: BP 134/73
[2023-04-13] MEDS ORDERED: PRED20 PO (12:11)
[2023-04-13] MEDS ORDERED: AZIT500 PO (12:12)
[2023-04-13] MEDS ORDERED: ALBU90OI INH (12:12)
== END 2023-04-13 14:10 | disposition home or self-care (01) ==
LOC: ER 19:34 → MEDS 19:35 → PCU 19:35 → MEDS 04-12 18:30 → ENPENDDIS 04-13 11:25 → MEDS 04-13 14:10
PROVIDERS: Emergency Medicine; ADMIT Internal Medicine
DX: J96.21 Acute and chronic respiratory failure with hypoxia (principal); J96.22 Acute and chronic respiratory failure with hypercapnia; J44.1 Chronic obstructive pulmonary disease with (acute) exacerbation; I10 Essential (primary) hypertension; E78.5 Hyperlipidemia, unspecified; M79.7 Fibromyalgia; F17.200 Nicotine dependence, unspecified, uncomplicated; Z88.8 Allergy status to other drugs, medicaments and biological substances; Z79.899 Other long term (current) drug therapy
CPT/HCPCS: 36415; 71045; 80053; 83880; 84484; 85025; 93005; 93010; 94640; 94644; 94664; 94760; 94762; 96365; 96372; 96374; 96375; 96376; 99285-25; A9270; G0378; J0456; J1650; J2930; J7050; J7512

== ENCOUNTER 2023-04-14 22:30 | Inpatient (IN) | payer MEDICARE, OTHER ==
[~2023-04-14] VITALS: Ht 167.6 cm; Wt 67.7 kg
[~2023-04-14 22:30] MED LIST changes: +ALBU90OI INH
[2023-04-14 22:42] LABS: Bicarbonate Venous 30.2 mmol/L (24.0-30.0); PCO2 Venous 68.4 mmHg (38-42); pH Blood Venous 7.32 (7.34-7.37)
[2023-04-14 22:43] LABS: Base Excess Venous 8.9 mmol/L
[2023-04-14 22:49] LABS: BASOPHILS ABSOLUTE AUTO 0.04 K/mm3 (0.00-0.23); BASOPHILS PERCENT AUTO 0 % (0-2); EOSINOPHILS ABSOLUTE AUTO 0.02 K/mm3 (0.00-0.68); EOSINOPHILS PERCENT AUTO 0 % (0-6); Hematocrit 41.3 % (33.0-51.0); Hemoglobin 13.6 g/dL (11.5-16.0); IMMATURE GRAN ABSOLUTE AUTO 0.03 K/mm3 (0.00-0.10); IMMATURE GRAN PERCENT AUTO 0 % (0-1); LYMPHOCYTES PERCENT AUTO 16 % (21-46); MONOCYTES ABSOLUTE AUTO 0.16 K/mm3 (0.16-1.47); MONOCYTES PERCENT AUTO 2 % (4-13); Mean Corpuscular HGB 30.9 pg (26.0-34.0); Mean Corpuscular HGB Conc 32.9 g/dL (31.5-36.5); Mean Corpuscular Volume 94 fL (80-100); Mean Platelet Volume 11.5 fL (9.1-12.4); NEUTROPHILS ABSOLUTE AUTO 8.03 K/mm3 (1.96-9.15); NEUTROPHILS PERCENT AUTO 81 % (41-73); Platelet Count 243 K/mm3 (150-400); RDW Coefficient Variation 12.8 % (11.7-14.2); RDW Standard Deviation 44.3 fL (35.1-46.3); White Blood Cell Count 9.88 K/mm3 (4.00-11.30)
[2023-04-14 23:25] LABS: Albumin, Blood 4.3 g/dL (3.4-5.0); Albumin/Globulin Ratio 1.2 (0.8-1.8); Bilirubin, Total 0.5 mg/dL (0.1-1.0); Bun/Creatinine Ratio 29.5 (12.0-20.0); Calcium, Blood 10.1 mg/dL (8.5-10.1); Creatinine, Blood 0.51 mg/dL (0.40-1.00); Globulin, Blood 3.7 g/dL (2.2-4.0); Magnesium, Blood 2.1 mg/dL (1.6-2.4); Potassium, Blood 4.4 mmol/L (3.5-5.5)
[2023-04-15] VITALS (28 sets, daily range): BP systolic 97–185; BP diastolic 57–168
[2023-04-15 00:11] LABS: Influenza A, PCR NEGATIVE (NEGATIVE); Influenza B, PCR NEGATIVE (NEGATIVE); Resp Syncytial Virus, PCR NEGATIVE (NEGATIVE); SARS-Cov-2 (COVID-19) PCR, MMC NEGATIVE (NEGATIVE)
--- NOTE | 2023-04-15 05:08 | NUR ---
PT ADMITTED TO ROOM ICU 7 AT 0320. REPORT RECEIVED. PT SL[facility]. PT PLACED TO BIPAP BY RESPIRATORY THERAPY. PT MAINTAINS SATURATIONS > 90 PERCENT. PT REFUSES TO BE IN HOSPITAL GOWN. PT VERY SOMNULENT SECONDARY TO RECEIVING ANAPSINE IN THE ED. PT IN NO APPARENT DISTRESS. WILL CONTINUE TO MONITOR PT, AND WILL REPORT OFF TO ONCOMING RN.
--- NOTE | 2023-04-15 10:40 | NUR ---
TOBY HAS BEEN UP TO THE BSC X1, WAS ON NC AT THE TIME. DIDN'T TOLERATE IT WELL, WAS VERY ANXIOUS AND CONCERNED, BREATHING SHALLOW, RAPID AND IRREGULAR. PT WAS RETURNED TO [facility] 12/06 35% WITHOUT INCIDENT. PT GIVEN FAN PER HER REQUEST, IV ANTIBIOTICS GIVEN.
--- NOTE | 2023-04-15 11:41 | NUR ---
JONY GOT UP TO THE BSC JUST AFTER A VISIT BY . SHE DID WELL, THEN UPON HEADING BACK TO BED BECAME TACHYPNEIC AND WOB INCREASED TENFOLD. SHE WAS UNABLE TO CALM HERSELF, COOL WASHCLOTHS, FAN AND POSITIVE REINFORCEMENT WERE NOT SUCCESSFUL. AFTER 30 MINUTES, RT WAS CALLED FOR A BREATHING TREATMENT. PT REMAINED ANXIOUS, HOLDING ON TO THIS RN AND A CALL WAS MADE TO TRY TO GET AN ORDER FOR ANXIOLYTIC VIA IV RATHER THAN PO WITH HER STATE OF BREATHING. HER SATS REMAINED >90% FOR THE MOST PART, AFTER ABOUT 20" HER FIO2 WAS INCREASED BACK TO 35% IT HAD BEEN DECREASED WHILST SHE WAS RESTING. SHE IS NOW RECOVERING POST DOSE OF IV LORAZEPAM OF 0.25MG. SHE WILL TAKE HER ORAL MEDS AND TRY TO REST AGAIN.
[2023-04-15 11:46] LABS: BASOPHILS PERCENT AUTO 0 % (0-2); EOSINOPHILS PERCENT AUTO 0 % (0-6); Hemoglobin 12.6 g/dL (11.5-16.0); IMMATURE GRAN PERCENT AUTO 0 % (0-1); LYMPHOCYTES ABSOLUTE AUTO 0.72 K/mm3 (0.84-5.20); LYMPHOCYTES PERCENT AUTO 16 % (21-46); MONOCYTES ABSOLUTE AUTO 0.07 K/mm3 (0.16-1.47); MONOCYTES PERCENT AUTO 2 % (4-13); Mean Corpuscular HGB Conc 33.2 g/dL (31.5-36.5); Mean Corpuscular Volume 94 fL (80-100); Mean Platelet Volume 11.5 fL (9.1-12.4); NEUTROPHILS ABSOLUTE AUTO 3.69 K/mm3 (1.96-9.15); NEUTROPHILS PERCENT AUTO 82 % (41-73); Platelet Count 210 K/mm3 (150-400); RDW Coefficient Variation 12.6 % (11.7-14.2); RDW Standard Deviation 43.9 fL (35.1-46.3); Red Blood Cell Count 4.06 M/mm3 (3.80-5.20); White Blood Cell Count 4.48 K/mm3 (4.00-11.30)
[2023-04-15 12:06] LABS: Albumin, Blood 3.9 g/dL (3.4-5.0); Albumin/Globulin Ratio 1.2 (0.8-1.8); Bilirubin, Total 0.5 mg/dL (0.1-1.0); Bun/Creatinine Ratio 43.6 (12.0-20.0); Calcium, Blood 9.7 mg/dL (8.5-10.1); Creatinine, Blood 0.46 mg/dL (0.40-1.00); Globulin, Blood 3.2 g/dL (2.2-4.0); Potassium, Blood 3.9 mmol/L (3.5-5.5); Total Protein, Blood 7.1 g/dL (6.4-8.2)
--- NOTE | 2023-04-15 15:31 | NUR ---
JONY WAS AWAKENED TO TAKE IN SOME MEDICATION AND A COUPLE OF SIPS OF WATER. SHE HAS MANAGED TO MAKE A WAY TO HAVE THE HOSE PORTION OF THE BIPAP REMOVED AND THE MEDICATION TAKEN AND SIPS OF WATER WITHOUT HAVING TO GET SHORT OF BREATH OR ANXIOUS. SHE HAS RESUMED SLEEPING AT THIS TIME.
--- NOTE | 2023-04-15 20:00 | NUR ---
ASSUMED CARE ASSUMED CARE AT 1900. PT A/O X 4. COOPERATIVE WITH CARE BUT STATES SHE IS ANXIOUS. TREMULOUS IN BUA, VOICE SOUNDS "SHAKY". SPEAKING IN FULL SENTENCES. MEDICATED WITH PO ATIVAN. WHEEZES T/O ALL LUNG BARCLAY. RT AT BEDSIDE FOR BREATHING TREATMENT. ON 6L NC WITH SPO2 GREATER THEN 90%. ST RATE 110'S. VSS. EDUCATED ON HOSP WANTING PT TO WEAR BIPAP T/O NIGHT. PT VOICED UNDERSTANDING AND WAS AGREEABLE TO POC. CALL LIGHT IN REACH.
[2023-04-16] VITALS (10 sets, daily range): BP systolic 115–162; BP diastolic 68–112
--- NOTE | 2023-04-16 06:49 | NUR ---
SHIFT SUMMARY NO ACUTE EVENTS T/O NIGHT. ON BIPAP MAJORITY OF NIGHT. 6L NC WHEN OFF BIPAP. VSS. PT WHEEZY AT TIMES, RELIEF FOUND WITH BREATHING TREATMENTS. UP TO BSC ONCE THIS SHIFT, ONE PERSON ASSIST. MEDICATED WITH ATIVAN PRIOR TO GETTING OOB. PT RESPONDED WELL, RR AND HR DID NOT INCREASE MUCH PRIOR. PT ALSO INCT X1. CALL LIGHT IN REACH. WILL REPORT OFF TO ONCOMING RN.
--- NOTE | 2023-04-16 12:17 | NUR ---
[place] of Care: Care assumed at 0700hr. Patient sleeping, easily roused to verbal stimuli. Alert and oriented x4. VSS, denies pain, discomfort, SOB or dyspnea. Patient c/o mild anxiety, effectively managed with prn PO Ativan x1 this morning. On BiPAP 10/10/35% at shift change, then placed on NC at 6L, and tolerating well. No s/s of dyspnea or SOB. Calm and cooperative with staff. Call light in reach, makes needs known. Will continue to monitor.
--- NOTE | 2023-04-16 17:09 | NUR ---
TRANSFER AND SHIFT SUMMARY: PT TRANSFERED TO PCU APPROX 1345, TRANSFERS SELF, THIS RN ASSUMED CARE OF PT. PT IS A&Ox4, C/O FEELING ANXIOUS AT TIMES, DENIES NEED FOR MEDICATION THUS FAR. PRN NICORETTE IN PLACE, PT MEDICATED NEEDED. INTERMITTENT AUDIBLE EXP WHEEZING NOTED, BREATHING TX's IN PLACE AND APPEAR TO BE HELPING. PT TACHYPNEIC, HAS BEEN MAINTAINING O2 SATS >92%, CURRENTLY RECEIVING O2 VIA NC AT 4 L/MIN, BIPAP AT BEDSIDE. PT DENIES CP, SIN TACH ON MONITOR W/RATE MOSTLY 100-110s. BED BATH COMPLETED THIS SHIFT. PT HAS BEEN NEGATIVE FOR IGNITABLE RISK/SOURCES WHEN ASSESSED. AT THIS TIME, PT RESTING QUIETLY IN BED W/LIGHTS LOW AND CALL LIGHT IN REACH. WILL CONTINUE TO MONITOR AND TREAT ACCORDINGLY UNTIL CHANGE OF SHIFT.
--- NOTE | 2023-04-16 20:12 | NUR ---
ASSUMED PT ARE FROM [facility] MCF[facility] ON . A&OX4. DENIES CHEST PAIN/PRESSURE. REPORTS ACID REFLUX EARLIER THAT HAS RESOLVED. NAUSEA THAT HAD OCCURED WITH ACID REFLUX HAS RESOLVED WELL. HR IS ST IN 100'S. BP STABLE, SEE RECORDED VITAL SIGNS. AFEBRILE. DENIES FEELING SOB AT THIS TIME. O2 SATS > 92% ON 4 LPM. PT REPORTS BASLINE O2 IS 6 LPM VIA NC. PLACED ON BIPAP FOR SLEEPING. NICOTINE GUM SWTICHED TO NICOTINE PATCH PER PT REQUEST. DENIES FURTHER NEEDS AT THIS TIME. CALL LIGHT IN REACH. BED IN LOW POSITION.
[2023-04-17 00:11] VITALS: BP 138/81
[2023-04-17 04:07] VITALS: BP 132/89
[2023-04-17 04:42] LABS: Bun/Creatinine Ratio 56.2 (12.0-20.0); Calcium, Blood 9.2 mg/dL (8.5-10.1); Creatinine, Blood 0.55 mg/dL (0.40-1.00); Potassium, Blood 4.1 mmol/L (3.5-5.5)
--- NOTE | 2023-04-17 05:48 | NUR ---
SHIFT SUMMARY: PT SLEEPING INTERMITTENTLY THROUGHOUT SHIFT. PT AGREEING TO WEAR BIPAP THROUGHOUT SHIFT WITH BREAK AT MIDNIGHT FOR SEVERAL HOURS DUE TO NOSE BEING SORE. O2 SATS REMAIN > 92%. DENIES ANY SOB. ON 4 LPM VIA NC WHEN NOT ON BIPAP. RESTING IN BED. CALL LIGHT IN REACH. BED IN LOW POSITION.
[2023-04-17 08:24] VITALS: BP 155/85
[2023-04-17 12:02] VITALS: BP 160/85
[2023-04-17 15:51] VITALS: BP 154/91
--- NOTE | 2023-04-17 17:58 | NUR ---
SHIFT SUMMARY: PT A&Ox4, SLEEPS OFTEN, REQUESTS DOOR SHUT AND LIGHTS LOW. PT HAS BEEN AGREEABLE TO CARE T/OUT THE DAY. PT MEDICATED x1 FOR C/O ANXIETY THIS AM, REPORTS IMPROVED SYMPTOMS. RESPIRATIONS TACHYPNEIC, DYSPNEA W/ACTIVITY, EXP WHEEZING THAT IMPROVES W/BREATHING Tx. O2 SATS >92% ON 4 L/MIN NC, BIPAP ON STANDBY AT BEDSIDE. PT DENIES CP, SIN TACH ON MONITOR W/RATE MOSTLY 100-120 WHILE AWAKE. PT TOLERATING STAND AND TRANSFER TO BSC. PT HAS BEEN NEGATIVE FOR INGITABLE RISK/SOURCES WHEN ASSESSED. AT THIS TIME, PT IS RESTING QUIETLY IN ROOM W/CALL LIGHT IN REACH. WILL CONTINUE TO MONITOR AND TREAT ACCORDINGLY.
[2023-04-17 19:55] VITALS: BP 167/83
--- NOTE | 2023-04-17 22:56 | NUR ---
ASSUMED PT CARE FROM LYNN MCFADDEN ON . A&OX4. DENIES ANY SOB OR CHEST PAIN/PRESSURE. O2 SATS > 92% ON 4 LPM WHEN AWAKE AND BIPAP WHILE SLEEPING. BP STABLE, SEE RECORDED VITAL SIGNS. DENIES NAUSEA. MEDICATED FOR GENERLIZED CHRONIC PAIN FORM MS PER PT, SEE EMAR. LEFT RESTING IN BED WITH EYES CLOSED. CALL LIGHT IN REACH. BED ALARM ON.
[2023-04-18] VITALS (10 sets, daily range): BP systolic 134–186; BP diastolic 71–113
[2023-04-18 04:11] LABS: Bun/Creatinine Ratio 55.7 (12.0-20.0); Calcium, Blood 8.8 mg/dL (8.5-10.1); Creatinine, Blood 0.52 mg/dL (0.40-1.00); Potassium, Blood 4.2 mmol/L (3.5-5.5)
--- NOTE | 2023-04-18 07:17 | NUR ---
SHIFT SUMMARY: NO ACUTE CHANGES NOTED DURING THIS SHIFT. PT NOT TOLERATING BIPAP DURING NIGHT DUE TO CAUSING PAIN IN BRIDGE OF NOSE. ON 4 LPM VIA NC WITH O2 SATS > 92%. DENIES SOB. CALL LIGHT IN REACH. BED IN LOW POSITION.
--- NOTE | 2023-04-18 12:02 | NUR ---
PT RESTING IN BED. A/O X4. DENIES FEELING SOB BUT APPEARS SOB WITH EXERTION. RECOVERS WITH REST. ON 4L NC, PT USES O2 AT HOME CONTINUOUSLY. PLAN IS TO MONITOR PT ANOTHER DAY. HAD SOME ANXIETY THIS AM, ATIVAN GIVEN. USES CALL LIGHT APPROPRIATELY.
--- NOTE | 2023-04-18 12:40 | NUR ---
care asumption pt a&ox4. sp02>90% on 3l nc, pt denies sob. RT in room assessing. Medical status, no telemetry. bp elevated, see vitals. Call placed to MD Santo. Md Santo w/ no new orders. Resting in bed watching tv, eating lunch. Cold pad and fan on d/t complaints of being hot, afebrile. Call light in reach.
[2023-04-19 04:10] VITALS: BP 131/83
[2023-04-19 05:03] LABS: PCO2 Arterial 67.6 mmHg (35-45); PO2 Arterial 97.8 mmHg (80-100); pH Blood Arterial 7.39 (7.35-7.45)
--- NOTE | 2023-04-19 06:35 | NUR ---
NOC SHIFT SUMMARY PT SLEPT WELL OVERNIGHT. REFUSED CPAP. ON 4L NC. VSS PER PT TREND. POSSIBLE D/C TODAY. WILL PASS ON TO DAY SHIFT.
[2023-04-19 07:20] VITALS: BP 141/81
[2023-04-19 12:04] VITALS: BP 167/103
[2023-04-19 12:06] VITALS: BP 172/88
--- NOTE | 2023-04-19 12:20 | NUR ---
PT UPDATE: 1200 VITALS TAKEN, SEE VITALS IN CHART. PHYSICIAN NOTIFIED OF ELEVATED BP. NO NEW ORDERS.
[2023-04-19] MEDS ORDERED: DILT120 PO (12:51)
[2023-04-19] MEDS ORDERED: TRELEGY ELLIPT1 EACH INH (12:53)
--- NOTE | 2023-04-19 15:37 | NUR ---
PT EDUCATION: PT REQUESTED ATIVAN WHILE RECEIVING DISCHARGE INSTRUCTIONS. PT EDUCATED ON TWICE DAILY DOSING. ADVISED PT NOT TO TAKE MORE ATIVAN AFTER DISCHARGE PER MEDICATION INSTRUCTIONS. ATIVAN ADMINISTERED PER EMAR.
--- NOTE | 2023-04-19 15:55 | NUR ---
DISCHARGE NOTE: PT DISCHARGED FROM PCU7 APPROX 1555. DISCHARGE PACKET AND EDUCATION REVIEWED WITH PT. TELEMETRY AND IV ACCESS DC'D. PT A&OX4 AT TIME OF DISCHARGE. VSS, ON 5L O2 VIA NC. PT DENIES SOB AT TIME OF DC. PT ASSISTED INTO PERSONAL CLOTHING BY STAFF. WHEELED TO DAUGHTER'S PRIVATE VEHICLE BY STAFF WITHOUT DIFFICULTY.
== END 2023-04-19 15:55 | disposition home or self-care (01) | DRG 189 ==
LOC: ER 22:30 → ICUE 04-15 00:28 → PCU 04-16 13:47
PROVIDERS: Internal Medicine; Student in an Organized Health Care Education/Training Program; ADMIT Internal Medicine
PROC: 5A09357 Assistance with Respiratory Ventilation, Less than 24 Consecutive Hours, Continuous Positive Airway Pressure (ICD-10-PCS; principal; 2023-04-15)
PROC: 4A033R1 Measurement of Arterial Saturation, Peripheral, Percutaneous Approach (ICD-10-PCS; 2023-04-19)
DX: J96.21 Acute and chronic respiratory failure with hypoxia (principal); J44.1 Chronic obstructive pulmonary disease with (acute) exacerbation; E87.29 Other acidosis; G47.33 Obstructive sleep apnea (adult) (pediatric); F41.9 Anxiety disorder, unspecified; F32.A Depression, unspecified; F90.9 Attention-deficit hyperactivity disorder, unspecified type; E78.5 Hyperlipidemia, unspecified; G89.4 Chronic pain syndrome; M79.7 Fibromyalgia; F17.210 Nicotine dependence, cigarettes, uncomplicated; I10 Essential (primary) hypertension; Z20.822 Contact with and (suspected) exposure to COVID-19; Z79.899 Other long term (current) drug therapy; Z79.51 Long term (current) use of inhaled steroids; Z99.81 Dependence on supplemental oxygen; Z79.2 Long term (current) use of antibiotics; Z88.8 Allergy status to other drugs, medicaments and biological substances; Z98.51 Tubal ligation status; Z79.891 Long term (current) use of opiate analgesic
CPT/HCPCS: 0241U; 36415; 36600; 71045; 80048; 80053; 82803; 83735; 83880; 84145; 84484; 85025; 87070; 87077; 87186; 87205; 93005; 93010; 94640; 94644; 94660; 94664; 94760; 94762; 96365; 96366; 96375; 99285-25; A9270; J0456; J1650; J1790; J2060; J2930; J3475; J7050

== ENCOUNTER 2023-05-29 09:39 | Inpatient (IN) | payer MEDICARE, OTHER ==
[~2023-05-29] VITALS: Ht 152.4 cm; Wt 67.3 kg
[~2023-05-29 09:39] MED LIST changes: +DILT120 PO; -HYDACE10B PO; +LORCET 5-325 M1 EACH PO; +TRELEGY ELLIPT1 EACH INH
[2023-05-29 10:04] LABS: Base Excess Venous 13.2 mmol/L; Bicarbonate Venous 32.4 mmol/L (24.0-30.0); PCO2 Venous 95.8 mmHg (38-42); pH Blood Venous 7.24 (7.34-7.37)
[2023-05-29 10:12] LABS: BASOPHILS ABSOLUTE AUTO 0.04 K/mm3 (0.00-0.23); BASOPHILS PERCENT AUTO 1 % (0-2); EOSINOPHILS ABSOLUTE AUTO 0.07 K/mm3 (0.00-0.68); EOSINOPHILS PERCENT AUTO 1 % (0-6); Hematocrit 42.7 % (33.0-51.0); Hemoglobin 13.4 g/dL (11.5-16.0); IMMATURE GRAN PERCENT AUTO 0 % (0-1); LYMPHOCYTES ABSOLUTE AUTO 4.41 K/mm3 (0.84-5.20); LYMPHOCYTES PERCENT AUTO 60 % (21-46); MONOCYTES ABSOLUTE AUTO 0.39 K/mm3 (0.16-1.47); MONOCYTES PERCENT AUTO 5 % (4-13); Mean Corpuscular HGB 30.8 pg (26.0-34.0); Mean Corpuscular HGB Conc 31.4 g/dL (31.5-36.5); Mean Corpuscular Volume 98 fL (80-100); Mean Platelet Volume 11.7 fL (9.1-12.4); NEUTROPHILS ABSOLUTE AUTO 2.48 K/mm3 (1.96-9.15); NEUTROPHILS PERCENT AUTO 34 % (41-73); Platelet Count 135 K/mm3 (150-400); RDW Coefficient Variation 12.3 % (11.7-14.2); Red Blood Cell Count 4.35 M/mm3 (3.80-5.20); White Blood Cell Count 7.39 K/mm3 (4.00-11.30)
[2023-05-29 10:40] LABS: Albumin/Globulin Ratio 1.1 (0.8-1.8); Bilirubin, Total 0.5 mg/dL (0.1-1.0); Bun/Creatinine Ratio 36.8 (12.0-20.0); Creatinine, Blood 0.54 mg/dL (0.40-1.00); Globulin, Blood 3.5 g/dL (2.2-4.0); Total Protein, Blood 7.5 g/dL (6.4-8.2)
[2023-05-29 10:47] LABS: Influenza A, PCR NEGATIVE (NEGATIVE); Influenza B, PCR NEGATIVE (NEGATIVE); Resp Syncytial Virus, PCR NEGATIVE (NEGATIVE); SARS-Cov-2 (COVID-19) PCR, MMC NEGATIVE (NEGATIVE)
[2023-05-29 14:06] VITALS: BP 131/76
--- NOTE | 2023-05-29 16:52 | NUR ---
SHIFT SUMMARY PT REMAINS ALERT AND ORIENTED. PT STATES SHE FEELS ANXIOUS AND MEDICATED PER EMAR. O2 SATS REMAIN ABOVE 90% ON 4L NC. PT TOLERATING BREAK FROM BIPAP. BP STABLE. HR NSR. PT COMPLAINS OF BACK PAIN AND REQUESTS HEATING PAD AND REPOSITIONING, WHICH SHE STATES IMPROVES HER PAIN. PT ABLE TO REPOSITION HERSELF INDEPENDENTLY. FAN PROVIDED REQUESTED. PT ORIENTED TO ROOM. WILL CONTINUE TO MONITOR AND REPORT TO ONCOMING BOGDAN
[2023-05-29 19:37] VITALS: BP 153/87
[2023-05-29 19:47] VITALS: BP 152/84
--- NOTE | 2023-05-29 20:29 | NUR ---
ASSUMED PT CARE FROM LISSA MCFADDEN ON . A&OX4. REQUESTING TO GET UP TO BSC DUE TO DIFFICULTY USING PW. O2 SATS > 90% ON 4 LPM VIA NC. DOES NOT APPEAR IN DISTRESS. UP TO BSC WITH 1 ASSIST. PT RESPORTS FEELING SOB, APPEARS IN DISTRESS, REPSIRATIONS INCREASE INTO 30S. RETURNED TO BED. O2 SATS NOTED TO BE 69%. RT CALLED. PLACED ON BIPAP WITHOUT IMPROVEMENT, PLACED ON NONREBREATHER BY THIS RN UNITL RT ABLE TO RESPOND. PLACED BACK ON BIPAP WITH 8 LPM BLEED IN AND BREATHING TREATMENT GIVEN BY RT. PT REPORTS IMPROVMENT OF SOB. O2 SATS NOW IN HIGH 90'S, RESPIRATIONS 24, DOES NOT APPEAR IN DISTRESS AT THIS TIME. RESTING IN BED WITH EYES CLOSED. DECREASED O2 TO 1.5 LPM BLEED IN WITH O2 SATS IN MID 90'S. RT MADE AWARE. WILL MONITOR. CALL LIGHT IN REACH. BED IN LOW POSITION. CALL LIGT IN REACH.
[2023-05-30] VITALS (7 sets, daily range): BP systolic 127–154; BP diastolic 62–87
[2023-05-30 05:26] LABS: BASOPHILS PERCENT AUTO 0 % (0-2); EOSINOPHILS PERCENT AUTO 0 % (0-6); Hematocrit 37.7 % (33.0-51.0); Hemoglobin 12.3 g/dL (11.5-16.0); IMMATURE GRAN ABSOLUTE AUTO 0.01 K/mm3 (0.00-0.10); IMMATURE GRAN PERCENT AUTO 0 % (0-1); LYMPHOCYTES ABSOLUTE AUTO 0.94 K/mm3 (0.84-5.20); LYMPHOCYTES PERCENT AUTO 20 % (21-46); MONOCYTES ABSOLUTE AUTO 0.03 K/mm3 (0.16-1.47); MONOCYTES PERCENT AUTO 1 % (4-13); Mean Corpuscular HGB 30.4 pg (26.0-34.0); Mean Corpuscular HGB Conc 32.6 g/dL (31.5-36.5); Mean Platelet Volume 12.3 fL (9.1-12.4); NEUTROPHILS ABSOLUTE AUTO 3.68 K/mm3 (1.96-9.15); NEUTROPHILS PERCENT AUTO 79 % (41-73); Platelet Count 129 K/mm3 (150-400); RDW Coefficient Variation 12.1 % (11.7-14.2); RDW Standard Deviation 41.7 fL (35.1-46.3); Red Blood Cell Count 4.05 M/mm3 (3.80-5.20); White Blood Cell Count 4.66 K/mm3 (4.00-11.30)
[2023-05-30 05:32] LABS: Mean Corpuscular Volume 93 fL (80-100)
[2023-05-30 05:51] LABS: Bun/Creatinine Ratio 56.2 (12.0-20.0); Calcium, Blood 9.8 mg/dL (8.5-10.1); Creatinine, Blood 0.45 mg/dL (0.40-1.00); Potassium, Blood 4.6 mmol/L (3.5-5.5)
--- NOTE | 2023-05-30 18:42 | NUR ---
ASSUMED CARE OF PT AT 0700 THIS AM. PT HAD ANXIETY ATTACK THIS AM, PT PLACED ON BIPAP AND ATIVAN GIVEN WITH GOOD RESULTS. PT HAS SLEPT ON THE BIPAP T/O THE DAY. PT IS NOTED TO BE VERY ANXIOUS, HAS QUICK MOVEMENTS W LITTLE AWARENESS OF CORDS/LINES, BUT IS COOPERATIVE WITH CARE. NO ACUTE CHANGES T/O THE SHIFT, VSS, SEE DOCUMENTED ASSESSMENT. PT IS ABLE TO USE CALL LIGHT FOR NEEDS. WILL CONTINUE TO MONITOR AND GIVE REPORT TO ONCOMING SHIFT RN. OF NOTE, PT STATED TO THIS RN THAT SHE DOES NOT HAVE A BIPAP OR CPAP AT HOME. SHE HAS BEEN UNABLE TO MAKE IT TO A SLEEP STUDY. ENCOURAGED PT TO DO SO ON AN OUTPT BASIS.
--- NOTE | 2023-05-30 22:00 | NUR ---
ASSUMING CARE OF PT AT THIS TIME
[2023-05-31 04:07] VITALS: BP 156/86
[2023-05-31 04:44] LABS: Albumin, Blood 3.7 g/dL (3.4-5.0); Albumin/Globulin Ratio 1.2 (0.8-1.8); Bilirubin, Total 0.3 mg/dL (0.1-1.0); Bun/Creatinine Ratio 61.2 (12.0-20.0); Calcium, Blood 9.9 mg/dL (8.5-10.1); Creatinine, Blood 0.54 mg/dL (0.40-1.00); Globulin, Blood 3.1 g/dL (2.2-4.0); Potassium, Blood 3.9 mmol/L (3.5-5.5); Total Protein, Blood 6.8 g/dL (6.4-8.2)
--- NOTE | 2023-05-31 05:57 | NUR ---
SHIFT SUMMARY PT ALERT AND ORIENTED X 4. HR STABLE. BP STABLE. NO CP OR PRESSURE REPORTED. OXYGEN SATURATION MAINTAINED ABOVE 92% ON 4 L NC OR CPAP PRN, SEE RT NOTES FOR SETTINGS. NO ACUTE CHANGES T/O SHIFT. PT'S HOME PAIN MEDICATION RE-STARTED PER MD ORDER. PT MEDICATED ONCE FOR PAIN AND ANXIETY. PUREWICK IN PLACE. PT ABLE TO TURN SELF IN BED NEEDED. CALL LIGHT WITHIN REACH. WILL CONT TO MONITOR UNTIL REPORT GIVEN TO DAYSHIFT RN.
[2023-05-31 07:43] VITALS: BP 132/81
--- NOTE | 2023-05-31 10:27 | NUR ---
PT TRANSTION TO MEDICAL STATUS NO TELE. VITALS HRR 90-110'S, SBP 130'S, SATS ABOVE 95% ON 4L OF O2, AFEBRILE. PT ALERT AND ORIETED X4, CALS APPROPRIATELY. PT REQUESTED ATIVAN FOR ANXIETY THIS MORNING, SBA FOR TRANSFERS. DENIES ANY CHEST PAIN/PRESSURE. TP IN BED RESTING, CALL LIGHTS IN REACH REPROT GIVEN TO LOAN MCFADDEN
--- NOTE | 2023-05-31 12:30 | NUR ---
NURSING PCU DAYSHIFT: Assumed care of pt at approx 1100. A/O, anxious, cooperative w/care. Med status w/no tele, no c/o CP/pressure. Bipap in place at initial assessment, 14/04, backup 12, w/2L bleed in, O2 sat mid to upper 90's. Transitioned to 4L NC during lunch, tolerated well, w/O2 sat maintaining 90's. Back to bipap after meal for rest. RT at bedside for tx, respirations shallow and rapid, weak cough producing small amts of green sputum per pt. No s/s of acute distress at this time. Call light in reach, cont to monitor for changes.
--- NOTE | 2023-05-31 15:01 | NUR ---
NURSING PCU TRANSFER SUMMARY: No significant changes noted t/o the afternoon. Pt OOB to BSC, tolerated fairly well though became extremely anxious upon returning back to bed. O2 sat 80-90's during exertion though pt required recovery time to be able to relax and rest comfortably. Medical bed assignment received, telephone report provided. Awaiting room to be cleaned, will xfer via bed at that time. Cont to monitor until transfer is complete.
--- NOTE | 2023-05-31 16:53 | NUR ---
LATE ENTRY/1501: RECEIVED REPORT FROM ECHO TECHNOLOGIST RECEIVED PT FROM PCU VIA BED. MADE COMFORTABLE, ORIENTED TO ROOM AND UNIT ROUTINE. CALL LIGHT WITHIN REACH.
--- NOTE | 2023-05-31 18:21 | NUR ---
SHIFT SUMMARY PT HAS RESTED COMFORTABLY SINCE ARRIVAL TO FLOOR. IS ON CONT BIOX WITH SATS >90% WHEN ON EITHER 2L'S O2 VIA NC OR ON BIPAP AT THESE SETTINGS 18/8, A BACK UP RATE OF 12 WITH 2 L'S O2 BLEED IN. PT DENIES PAIN.
[2023-05-31 19:26] VITALS: BP 149/80
[2023-06-01 03:32] VITALS: BP 152/84
--- NOTE | 2023-06-01 04:57 | NUR ---
SHIFT SUMMARY PT A&O, COOPERATIVE WITH CARE. DOES BECOME SLIGHTLY ANXIOUS AT TIMES. DENIED WANTING ANY MEDICATION AT THIS TIME FOR PAIN OR ANXIETY. REQUESTED HEATING PAD INSTEAD. CURRENTLY USING KPAD. CURRENTLY SWITCHING FROM BIPAP TO NC. PT WEARS BIPAP AT HOME. O2 @ 3L, SATS ABOVE 92%. PT IS CONTINENT AND 1P ASSIST TO BSC. REPLACED IV THIS SHIFT. PT DENIES ANY OTHER NEEDS AT THIS TIME. BED KEPT IN THE LOWEST POSITION WITH CALL LIGHT WITHIN REACH. WILL CONTINUE TO MONITOR.
[2023-06-01 06:58] LABS: BASOPHILS PERCENT AUTO 0 % (0-2); EOSINOPHILS PERCENT AUTO 0 % (0-6); Hematocrit 35.1 % (33.0-51.0); Hemoglobin 11.7 g/dL (11.5-16.0); IMMATURE GRAN ABSOLUTE AUTO 0.05 K/mm3 (0.00-0.10); IMMATURE GRAN PERCENT AUTO 1 % (0-1); LYMPHOCYTES ABSOLUTE AUTO 0.69 K/mm3 (0.84-5.20); LYMPHOCYTES PERCENT AUTO 8 % (21-46); MONOCYTES ABSOLUTE AUTO 0.15 K/mm3 (0.16-1.47); MONOCYTES PERCENT AUTO 2 % (4-13); Mean Corpuscular HGB 30.2 pg (26.0-34.0); Mean Corpuscular HGB Conc 33.3 g/dL (31.5-36.5); Mean Corpuscular Volume 91 fL (80-100); Mean Platelet Volume 12.4 fL (9.1-12.4); NEUTROPHILS ABSOLUTE AUTO 7.63 K/mm3 (1.96-9.15); NEUTROPHILS PERCENT AUTO 90 % (41-73); Platelet Count 123 K/mm3 (150-400); RDW Coefficient Variation 12.7 % (11.7-14.2); RDW Standard Deviation 42.3 fL (35.1-46.3); Red Blood Cell Count 3.88 M/mm3 (3.80-5.20); White Blood Cell Count 8.52 K/mm3 (4.00-11.30)
[2023-06-01 07:29] VITALS: BP 149/82
[2023-06-01 07:31] LABS: Albumin, Blood 3.5 g/dL (3.4-5.0); Albumin/Globulin Ratio 1.1 (0.8-1.8); Bilirubin, Total 0.4 mg/dL (0.1-1.0); Bun/Creatinine Ratio 70.6 (12.0-20.0); Calcium, Blood 9.6 mg/dL (8.5-10.1); Creatinine, Blood 0.52 mg/dL (0.40-1.00); Globulin, Blood 3.1 g/dL (2.2-4.0); Potassium, Blood 4.1 mmol/L (3.5-5.5); Total Protein, Blood 6.6 g/dL (6.4-8.2)
[2023-06-01] MEDS ORDERED: DULERA 100 MCG-13 GM INH (11:06)
--- NOTE | 2023-06-01 14:48 | NUR ---
DC HOME WRITTEN & VERBAL DC IMSTRUCTIONS GIVEN TO PT, GOOD UNDERSTANDING VERBALIZED. PIV DC'D WITH CATH TIP INTACT, NO REDNESS OR SWELLING NOTED. NEW MED SCRIPTS FAXED TO PT'S PREFERRED PHARM. PT'S DTR HERE WITH HOME O2 TO DRIVE PT HOME. UPON DTR'S ARRIVAL PT STATES SHE CAN'T BREATH AND WANTS TO BE ON BIPAP. PLACED PT ON BIPAP FOR A FEW MINUTES. PT CALLED RN TO ROOM STATING SHE'S READY TO GO. A FEW MINUTES LATER SHE STATES SHE NEEDS ANTI ANXIETY MEDICATION. PLACED CALL TO , STATES "GIVE PT HER ATIVAN .5MG PO AND WAIT TIL SHE FEELS THE EFFECT THEN SEND HER HOME. APPROX 30-35 MINS LATER ONCE SHE WAS PLACED IN W/C FOR RIDE TO CAR SHE STATES SHE NEEDS THE BIPAP AGAIN. PLACED BIPAP ON PT. SHE WILL CALL WHEN SHE'S READY TO LEAVE. PT APPEARS ANXIOUS.
== END 2023-06-01 15:18 | disposition home or self-care (01) | DRG 189 ==
LOC: ER 09:39 → ERHOLD 11:16 → PCU 11:16 → MEDS 05-31 15:34
PROVIDERS: Family Medicine; Student in an Organized Health Care Education/Training Program; ADMIT Hospitalist
PROC: 5A09357 Assistance with Respiratory Ventilation, Less than 24 Consecutive Hours, Continuous Positive Airway Pressure (ICD-10-PCS; principal; 2023-05-29)
DX: J96.22 Acute and chronic respiratory failure with hypercapnia (principal); E87.29 Other acidosis; J44.1 Chronic obstructive pulmonary disease with (acute) exacerbation; E87.3 Alkalosis; F41.9 Anxiety disorder, unspecified; G89.4 Chronic pain syndrome; F32.A Depression, unspecified; I10 Essential (primary) hypertension; D69.6 Thrombocytopenia, unspecified; M79.7 Fibromyalgia; E78.5 Hyperlipidemia, unspecified; R51.9 Headache, unspecified; J06.9 Acute upper respiratory infection, unspecified; Z20.822 Contact with and (suspected) exposure to COVID-19; Z87.891 Personal history of nicotine dependence; Z88.8 Allergy status to other drugs, medicaments and biological substances; Z98.51 Tubal ligation status; Z79.891 Long term (current) use of opiate analgesic; Z79.51 Long term (current) use of inhaled steroids; Z79.899 Other long term (current) drug therapy; Z79.52 Long term (current) use of systemic steroids
CPT/HCPCS: 0241U; 36415; 71045; 80048; 80053; 82803; 83735; 83880; 84145; 85025; 87081; 87430; 93005; 93010; 94640; 94644; 94645; 94660; 94664; 94762; 96365; 96366; 96368; 96375; 99285-25; A9270; J0456; J0696; J1650; J2930; J7050

== ENCOUNTER 2023-09-11 18:30 | Inpatient (IN) | payer MEDICARE, OTHER ==
[~2023-09-11] VITALS: Ht 162.6 cm; Wt 65.1 kg
[~2023-09-11 18:30] MED LIST changes: +DULERA 100 MCG-13 GM INH
[2023-09-11 18:50] LABS: BASOPHILS PERCENT AUTO 1 % (0-2); EOSINOPHILS PERCENT AUTO 2 % (0-6); Hematocrit 41.1 % (33.0-51.0); IMMATURE GRAN ABSOLUTE AUTO 0.07 K/mm3 (0.00-0.10); IMMATURE GRAN PERCENT AUTO 0 % (0-1); LYMPHOCYTES ABSOLUTE AUTO 9.62 K/mm3 (0.84-5.20); LYMPHOCYTES PERCENT AUTO 50 % (21-46); MONOCYTES ABSOLUTE AUTO 0.97 K/mm3 (0.16-1.47); MONOCYTES PERCENT AUTO 5 % (4-13); Mean Corpuscular HGB 29.3 pg (26.0-34.0); Mean Corpuscular HGB Conc 31.6 g/dL (31.5-36.5); Mean Corpuscular Volume 93 fL (80-100); Mean Platelet Volume 10.9 fL (9.1-12.4); NEUTROPHILS ABSOLUTE AUTO 8.21 K/mm3 (1.96-9.15); NEUTROPHILS PERCENT AUTO 43 % (41-73); Platelet Count 226 K/mm3 (150-400); RDW Coefficient Variation 12.4 % (11.7-14.2); RDW Standard Deviation 42.6 fL (35.1-46.3); Red Blood Cell Count 4.44 M/mm3 (3.80-5.20); White Blood Cell Count 19.27 K/mm3 (4.00-11.30)
[2023-09-11 18:55] LABS: Base Excess Venous 7.1 mmol/L; PCO2 Venous 64.9 mmHg (38-42); pH Blood Venous 7.32 (7.34-7.37)
[2023-09-11 19:15] LABS: Albumin, Blood 4.2 g/dL (3.4-5.0); Albumin/Globulin Ratio 1.2 (0.8-1.8); Bilirubin, Total 0.4 mg/dL (0.1-1.0); Bun/Creatinine Ratio 30.7 (12.0-20.0); Calcium, Blood 10.5 mg/dL (8.5-10.1); Creatinine, Blood 0.52 mg/dL (0.40-1.00); Globulin, Blood 3.6 g/dL (2.2-4.0); Potassium, Blood 3.6 mmol/L (3.5-5.5); Total Protein, Blood 7.8 g/dL (6.4-8.2)
[2023-09-11 20:22] LABS: Influenza A, PCR NEGATIVE (NEGATIVE); Influenza B, PCR NEGATIVE (NEGATIVE); Resp Syncytial Virus, PCR NEGATIVE (NEGATIVE); SARS-Cov-2 (COVID-19) PCR, MMC NEGATIVE (NEGATIVE)
[2023-09-11 22:51] VITALS: BP 122/65
[2023-09-11] MEDS ORDERED: HYDROCODONE-AC1 EAC7 PO (23:25)
--- NOTE | 2023-09-11 23:30 | NUR ---
ARRIVAL TO PCU NOTE RECEIVED REPORT FROM BEHAVIORAL HEALTH CASE MANAGERBOGDAN KOHLI ~8676 09/11/23, PT SHORTLY ARRIVED TO PCU 4. TRANSFERRED FROM ER [facility] TO PCU BED VIA SLIDE SHEET. A/Ox4 AND COOPERATIVE WITH CARE. ANSWERS MOST QUESTIONS APPROPRIATELY AND ABLE TO MAKE HER NEEDS KNOWN. ANXIOUS AT TIMES, ESPECIALLY WHEN FEELING SOB. ARRIVED IN ST 100-110'S WITH NO REPORTS OF CP OR PRESSURE. SBP STABLE RANGING 120'S. RESPIRATORY, ARRIVED ON 6L NC WITH SPO2 >98% LS COARSE T/O WITH EXPIRATORY WHEEZES NOTED. RR AVERAGING IN MID TO HIGH 20'S. PT HAS SUBSTANTIAL INCREASE IN WORK OF BREATHING EVEN WITH MINIMAL EXERTION. GI/, PURWICK PRESENT BUT PT WANTED DEVICE REMOVED. BS PRESENT IN ALL QUADRANTS WITH NO REPORTS OF N/V/D DIARRHEA AT THIS TIME. PT REPORTS INTERMITTENT NAUSEA T/O THE DAY HOWEVER. PT NOTED TO LYING IN SOILED LINENS WITH SMALL BROWN STOOL. PT CLEANED UP WITH NEW ATTENDS/LINEN IN PLACE. IV ABX INFUSING IN LEFT FOREARM IV. SKIN INTACT WITH NO WOUNDS NOTED. PT SHORTLY PLACED ON BiPAP TO ASSIST WITH WORK OF BREATHING. RT TO BEDSIDE TO ADMININISTER BREATHING TREATMENT. WILL CONTINUE TO PROCESS MD ORDERS. VSS UPON ARRIVAL TO PCU
[2023-09-12 03:24] VITALS: BP 120/57
[2023-09-12 04:09] LABS: BASOPHILS ABSOLUTE AUTO 0.01 K/mm3 (0.00-0.23); BASOPHILS PERCENT AUTO 0 % (0-2); EOSINOPHILS PERCENT AUTO 0 % (0-6); Hematocrit 34.8 % (33.0-51.0); Hemoglobin 11.2 g/dL (11.5-16.0); IMMATURE GRAN ABSOLUTE AUTO 0.02 K/mm3 (0.00-0.10); IMMATURE GRAN PERCENT AUTO 0 % (0-1); LYMPHOCYTES ABSOLUTE AUTO 0.44 K/mm3 (0.84-5.20); LYMPHOCYTES PERCENT AUTO 7 % (21-46); MONOCYTES ABSOLUTE AUTO 0.02 K/mm3 (0.16-1.47); MONOCYTES PERCENT AUTO 0 % (4-13); Mean Corpuscular HGB 29.4 pg (26.0-34.0); Mean Corpuscular HGB Conc 32.2 g/dL (31.5-36.5); Mean Corpuscular Volume 91 fL (80-100); Mean Platelet Volume 11.5 fL (9.1-12.4); NEUTROPHILS ABSOLUTE AUTO 5.67 K/mm3 (1.96-9.15); NEUTROPHILS PERCENT AUTO 92 % (41-73); Platelet Count 148 K/mm3 (150-400); RDW Coefficient Variation 12.6 % (11.7-14.2); RDW Standard Deviation 42.1 fL (35.1-46.3); Red Blood Cell Count 3.81 M/mm3 (3.80-5.20); White Blood Cell Count 6.16 K/mm3 (4.00-11.30)
[2023-09-12 05:35] LABS: Albumin, Blood 3.5 g/dL (3.4-5.0); Albumin/Globulin Ratio 1.1 (0.8-1.8); Bilirubin, Total 0.3 mg/dL (0.1-1.0); Bun/Creatinine Ratio 44.6 (12.0-20.0); Calcium, Blood 9.7 mg/dL (8.5-10.1); Creatinine, Blood 0.47 mg/dL (0.40-1.00); Globulin, Blood 3.2 g/dL (2.2-4.0); Potassium, Blood 3.8 mmol/L (3.5-5.5); Total Protein, Blood 6.7 g/dL (6.4-8.2)
--- NOTE | 2023-09-12 05:48 | NUR ---
SHIFT SUMMARY NO ACUTE CHANGES SINCE ARRIVAL TO PCU NOTE. SEE NOTE FOR MORE DETAILS. TOLERATING BiPAP WELL WITH SMALL INTERMITTENT BREAKS GIVEN. MAINTAINS SPO2 >95% ON 2L VIA NC. ABLE TO STAND PIVOT TO BSC. BRENDENN, VSS OF THIS NOTE
[2023-09-12 07:59] VITALS: BP 140/79
--- NOTE | 2023-09-12 09:49 | NUR ---
AM NOTE: PATIENT ALERT AND ORIENTED X4. SLEEPY THIS AM AND JUST WANTING TO GO BACK TO SLEEP AFTER AM ASSESSMENT. ONE PERSON ASSIST WITH FWW TO BSC. SHAKY WHEN STANDING. PATIENT STATES HER SHAKINESS GETS WORSE POST BREATHING TREATMENTS. WEARING 2.5L NASAL CANNULA SATING ABOVE 95%. LUNGS COARSE WITH EXPIRATORY WHEEZE. BIPAP ON STANDBY AT BEDSIDE. RESPIRATORY IN THIS AM FOR BREATHING TREATMENT AND INHALER. PATIENT STATES BREATHING HAS IMPROVED. STATES SHE HAS OCCASIONAL COUGH WITH RARE SPUTUM PRODUCTION. SPUTUM SAMPLE NEEDED. PATIENT STATES SHE IS NORMALLY ON 6L AT HOME. IV SOLUMEDROL GIVEN THIS AM PER EMAR. TELE SHOWING SR/ST WITH HR 80-100'S. BP STABLE. DENIES CHEST PAIN/PRESSURE/PALPITATIONS. NO SIGNS OF EDEMA. PPP. PATIENTON SC LOVENOX. IV SALINE LOCKED. BOWEL TONES PRESENT. DIET ORDERED THIS AM FOR PATIENT NO SWALLOWING ISSUES NOTED. UP TO BSC WITH ASSISTANCE. ATTENDS IN PLACE. OCCASIONAL INCONTINENCE. DENIES ABDOMINAL PAIN/NAUSEA. SKIN OVERALL DUSKY/PALE. PATIENT SLEEPING AT THIS TIME. CALL LIGHT IN REACH. COMPLAINS OF BODY ACHES THIS AM, REQUESTING TYLENOL PO PER EMAR. GIVEN WITH SOME RELIEF. DR. CAMPOS BY FOR PROVIDER ROUNDING, THIS RN AT BEDSIDE. NEW ORDERS FOR REGULAR DIET. ORDERS IN PLACE.
[2023-09-12 11:33] VITALS: BP 130/73
[2023-09-12 15:07] VITALS: BP 132/67
--- NOTE | 2023-09-12 17:41 | NUR ---
SHIFT SUMMARY: NO ACUTE CHANGES. PATIENT COMPLAINS OF INTERMIT HEADACHE THIS SHIFT RELIEVED WITH TYLENOL AND PO NORCO. REMAINS ON 2L NASAL CANNULA SATING ABOVE 95%. EVEN AND UNLABORED RESPIRATIONS AT REST. RESPIRATORY IN TO SWITCH OUT BIPAP AND GIVE BREATHING TREATMENTS/INHALERS. PATIENT STATES OVERALL HER BREATHING HAS IMPROVED. INTERMIT ANXIETY, WITH SHAKINESS. MEDICAL STATUS WITH NO TELE. EATING AND VOIDING WNL. BSC WITH ONE PERSON ASSIST PATIENT IS WEAK AND SHAKY WHEN UP. CALL LIGHT IN REACH. DENIES NEEDS AT THIS TIME.
[2023-09-12 20:20] VITALS: BP 129/70
[2023-09-13 00:20] VITALS: BP 127/61
[2023-09-13 04:33] VITALS: BP 128/65
--- NOTE | 2023-09-13 06:34 | NUR ---
SHIFT SUMMARY A/Ox4 AND COOPERATIVE WITH CARE. ANSWERS QUESTIONS APPROPRIATELY AND ABLE TO MAKE HER NEEDS KNOWN. NO ACUTE CHANGES OVERNIGHT FOR PT WAS ABLE TO SLEEP THROUGHOUT MOST OF THE SHIFT. CONTINUES TO BE HAVE INTERMITTENT ANXIETY. CARDIAC, REMAINS IN SR 80-90'S WITH NO REPORTS OF CP OR PRESSURE DURING THE NIGHT. SBP HAS BEEN STABLE RANGING 120-130'S. RESPIRATORY, PT MAINTAINING SPO2 >94% ON 1L NC. CONTINUES TO DEMONSTRATE EXERTIONAL DYSPNEA WITH MILD AMBULATION. OFTEN TAKES SEVERAL MINUTES TO CATCH HER BREATH. GI/GI, ABLE TO AMBULATE TO [facility] [place] VIA 1 ASSIST VOIDING YELLOW URINE. ONE SMALL BROWN/FIRM BM THIS SHIFT. CONTINUES TO HAVE INTERMITTENT GENERALIZED TREMORS. PAIN MANAGED PER EMAR. NO NEW ORDERS AT THIS TIME. HERMANN TREJO OF THIS NOTE.
[2023-09-13 08:50] VITALS: BP 129/74
[2023-09-13 15:51] VITALS: BP 135/67
[2023-09-13] MEDS ORDERED: Prednisone20 MG PO (15:57)
[2023-09-13] MEDS ORDERED: DOXY100 PO (15:57)
--- NOTE | 2023-09-13 17:07 | NUR ---
NO ACUTE CHANGES T/O THE SHIFT. SEE DOCUMENTED VS AND ASSESSMENT. PT WILL DISCHARGE HOME WITH O2 AND CPAP SET UP. PRESCRIPTIONS HAVE BEEN SENT TO [facility] PER PT REQUEST. HARD COPY FOR [place] GIVEN TO PT. AWAITING PT'S DTR TO ARRIVE FOR RIDE HOME.
--- NOTE | 2023-09-13 19:19 | NUR ---
DISCHARGE TEACHING COMPLETED WITH PT INCLUDING MEDICATION LIST, FOLLOW UP APPOINTMENTS AND EDUCATION MATERIALS. IV TO LFA REMOVED, CATHETER INTACT, NO S/SX OF INFECTION NOTED AT SITE AT THIS TIME. PT VERBALIZED UNDERSTANDING OF DISCHARGE MATERIALS AND STATED SHE HAD NO FURTHER QUESTIONS AT THIS TIME. ALL PT BELONGINGS PACKED UP AND READY TO GO. REPORT GIVEN TO NOC SHIFT RN. PT IS ONLY AWAITING THE ARRIVAL OF HER RIDE HOME.
--- NOTE | 2023-09-13 20:16 | NUR ---
DISCHARGE ASSUMED CARE OF PT AT 1900. PT IS A/OX4. PT HAD NO COMPLAINTS. PT AWAITING RIDE. RIDE ARRIVED AT 2009 CUTLERY GRINDER WHEELED PT OUT OF ROOM @ 2019.
== END 2023-09-13 20:00 | disposition home or self-care (01) | DRG 189 ==
LOC: ER 18:30 → PCU 21:29
PROVIDERS: Student in an Organized Health Care Education/Training Program; ADMIT Internal Medicine
PROC: 5A09357 Assistance with Respiratory Ventilation, Less than 24 Consecutive Hours, Continuous Positive Airway Pressure (ICD-10-PCS; principal; 2023-09-11)
DX: J96.21 Acute and chronic respiratory failure with hypoxia (principal); J44.1 Chronic obstructive pulmonary disease with (acute) exacerbation; E87.29 Other acidosis; J96.22 Acute and chronic respiratory failure with hypercapnia; I10 Essential (primary) hypertension; M79.7 Fibromyalgia; F98.8 Other specified behavioral and emotional disorders with onset usually occurring in childhood and adolescence; F41.8 Other specified anxiety disorders; G89.4 Chronic pain syndrome; E83.52 Hypercalcemia; Z88.8 Allergy status to other drugs, medicaments and biological substances; Z79.51 Long term (current) use of inhaled steroids; Z79.52 Long term (current) use of systemic steroids; Z99.81 Dependence on supplemental oxygen; Z11.52 Encounter for screening for COVID-19; Z87.891 Personal history of nicotine dependence
CPT/HCPCS: 0241U; 36415; 71045; 80053; 82803; 83880; 84484; 85025; 93005; 93010; 94640; 94644; 94660; 94664; 94762; 96374; 96375; 99285-25; A9270; J0456; J1650; J2930; J7050

== ENCOUNTER 2023-09-14 19:12 | Inpatient (IN) | payer MEDICARE, OTHER ==
[~2023-09-14] VITALS: Ht 162.6 cm; Wt 68.3 kg
[2023-09-14 19:39] LABS: Hematocrit 41.1 % (33.0-51.0); Hemoglobin 13.5 g/dL (11.5-16.0); Mean Corpuscular HGB 29.5 pg (26.0-34.0); Mean Corpuscular HGB Conc 32.8 g/dL (31.5-36.5); Mean Corpuscular Volume 90 fL (80-100); Platelet Count 232 K/mm3 (150-400); RDW Standard Deviation 42.6 fL (35.1-46.3); Red Blood Cell Count 4.58 M/mm3 (3.80-5.20); White Blood Cell Count 18.07 K/mm3 (4.00-11.30)
[2023-09-14 19:43] LABS: Base Excess Venous 3.8 mmol/L; Bicarbonate Venous 26.1 mmol/L (24.0-30.0); PCO2 Venous 67.5 mmHg (38-42); pH Blood Venous 7.27 (7.34-7.37)
[2023-09-14 19:50] LABS: Bun/Creatinine Ratio 50.2 (12.0-20.0); Creatinine, Blood 0.62 mg/dL (0.40-1.00); Potassium, Blood 3.9 mmol/L (3.5-5.5)
[2023-09-14 20:03] LABS: BASOPHILS PERCENT MAN 0 % (0-2); EOSINOPHILS PERCENT MAN 0 % (0-6); LYMPHOCYTES % ATYPICAL MANUAL 2 % (0-0); LYMPHOCYTES ABSOLUTE MAN 10.48 K/mm3 (0.84-5.20); LYMPHOCYTES PERCENT MAN 56 % (21-46); MONOCYTES ABSOLUTE MAN 1.08 K/mm3 (0.16-1.47); MONOCYTES PERCENT MAN 6 % (4-13); SEG NEUTROPHILS PERCENT MAN 36 % (41-73); TOTAL CELLS COUNTED 100
[2023-09-14 20:33] LABS: Influenza A, PCR NEGATIVE (NEGATIVE); Influenza B, PCR NEGATIVE (NEGATIVE); Resp Syncytial Virus, PCR NEGATIVE (NEGATIVE); SARS-Cov-2 (COVID-19) PCR, MMC NEGATIVE (NEGATIVE)
[2023-09-14 22:15] VITALS: BP 150/98
[2023-09-14 23:26] VITALS: BP 117/77
[2023-09-14 23:39] VITALS: BP 117/77
[2023-09-15] VITALS (15 sets, daily range): BP systolic 94–139; BP diastolic 57–94
--- NOTE | 2023-09-15 00:17 | NUR ---
LATE NOTE. PT ARRIVED ON UNIT AT 2200. ON BIPAP AT THIS TIME, MAINTAINING SATURATIONS >92%. MILDLY ANXIOUS ON ARRIVAL BUT OVERALL TOLERATING BIPAP WELL. VERY TACHYCARDIC ON TRANSFER, CARDIZEM DRIP RUNNING. HAS BEEN TITRATED DOWN TO 5MG/HR SINCE AND PT HR IS MAINTAINING HR IN 90s-110s. NO COMPLAINTS OF CHEST PAIN/PRESSURE. PT HAS BEEN RESTING COMFORTABLY SINCE ADMISSION PROCESS COMPLETED. BP HAS BEEN STABLE THROUGHOUT CARDIZEM RUNTIME THUS FAR. FLUIDS INFUSED PER EMAR. BED LOCKED IN LOWEST POSITION. EDUCATED EMISSION TECHNICIAN LIGHT USE AND IMPORTANCE OF FALL PREVENTION AND PT VOICED UNDERSTANDING, CALL LIGHT LEFT WITHIN REACH. CONTINUING TO MONITOR.
[2023-09-15 00:57] LABS: Base Excess Venous 3.2 mmol/L; Bicarbonate Venous 26.5 mmol/L (24.0-30.0); PCO2 Venous 47.8 mmHg (38-42); pH Blood Venous 7.38 (7.34-7.37)
--- NOTE | 2023-09-15 04:29 | NUR ---
SHIFT SUMMARY. PT HAS MOSTLY BEEN DOING WELL SINCE ARRIVING ON UNIT. WHEN RESTING, PT MAINTAINS O2 SATURATIONS >92% ON BIPAP. WHEN PT BECOMES ANXIOUS OR MOVES AROUND SHE WILL TACHY UP ON HR AND MILDLY DESATURATE ON SPO2. THIS MORNING PT WAS ABLE TO TRAN[place] WITH VERY MINIMAL [place]ANCE [place] [facility] [place] GETTING BACK INTO BED PT COMPLAINED OF INABILITY TO COMPLETELY CATCH BREATH WHICH BECAME EXACERBATED WITH INCREASING ANXIETY RELATED TO THIS. DESATURATED LOW LOW 80s BEFORE RT INCREASED BIPAP SETTINGS, ADMINISTERED BREATHING TREATMENT, AND ATIVAN PO WAS ADMINISTERED. AFTER PT WAS ALLOWED TO RELAX FOR SOME TIME THEREAFTER, RESATURATED AND HAS MAINTAINED >92% SINCE. CARDIZEM HAS BEEN RUNNING SINCE ARRIVAL ON UNIT, ALL TITRATIONS DOCUMENTED IN CRITICAL CARE FLOWSHEET PROCESS INTERVENTION. NOW RUNNING 5MG/HR WITH HR BOUNCING AROUND BETWEEN 90s-110s. CONTINUING TO MONITOR. SPOKE WITH DR. GARZON AND WAS ABLE TO SWITCH PT PO ATIVAN TO IV IN ORDER TO BE ABLE TO ADMINISTER WITHOUT REMOVING BIPAP WHEN ANXIETY ESCALATES. PT NOW RESTING COMFORTABLY IN BED. USES CALL LIGHT APPROPRIATELY, ABLE TO MAKE NEEDS KNOWN. BED LOCKED IN LOWEST POSITION. CALL LIGHT LEFT WITHIN REACH. CONTINUING TO MONITOR.
[2023-09-15 04:56] LABS: BASOPHILS PERCENT AUTO 0 % (0-2); EOSINOPHILS PERCENT AUTO 0 % (0-6); Hematocrit 34.3 % (33.0-51.0); Hemoglobin 11.2 g/dL (11.5-16.0); IMMATURE GRAN ABSOLUTE AUTO 0.02 K/mm3 (0.00-0.10); IMMATURE GRAN PERCENT AUTO 0 % (0-1); LYMPHOCYTES PERCENT AUTO 5 % (21-46); MONOCYTES ABSOLUTE AUTO 0.07 K/mm3 (0.16-1.47); MONOCYTES PERCENT AUTO 1 % (4-13); Mean Corpuscular HGB Conc 32.7 g/dL (31.5-36.5); Mean Corpuscular Volume 89 fL (80-100); Mean Platelet Volume 11.1 fL (9.1-12.4); NEUTROPHILS ABSOLUTE AUTO 5.83 K/mm3 (1.96-9.15); NEUTROPHILS PERCENT AUTO 94 % (41-73); Platelet Count 131 K/mm3 (150-400); RDW Coefficient Variation 13.1 % (11.7-14.2); RDW Standard Deviation 42.6 fL (35.1-46.3); Red Blood Cell Count 3.86 M/mm3 (3.80-5.20); White Blood Cell Count 6.22 K/mm3 (4.00-11.30)
[2023-09-15 05:22] LABS: Albumin, Blood 3.5 g/dL (3.4-5.0); Albumin/Globulin Ratio 1.2 (0.8-1.8); Bilirubin, Total 0.3 mg/dL (0.1-1.0); Creatinine, Blood 0.51 mg/dL (0.40-1.00); Magnesium, Blood 2.4 mg/dL (1.6-2.4); Potassium, Blood 3.9 mmol/L (3.5-5.5); Total Protein, Blood 6.5 g/dL (6.4-8.2)
[2023-09-15 11:37] LABS: U Amphetamine Screen Not Detected; U Barbituate Screen Not Detected; U Benzodiazapine Screen Not Detected; U Buprenorphine Screen DETECTED; U Cannabinoids Screen DETECTED; U Cocaine Screen Not Detected; U Methadone Screen Not Detected; U Methamphetamine Screen Not Detected; U Opiates Screen DETECTED; U Oxycodone Screen Not Detected; U Phencyclidine Screen Not Detected
--- NOTE | 2023-09-15 11:39 | NUR ---
UPDATE: PT CONVERTED TO SINUS RHYTHM @1128. DILT REMAINS ON STANDBY. VSS.
[2023-09-15 13:29] LABS: Thyroid Stimulating Hormone 0.233 uIU/mL (0.360-4.800)
[2023-09-15 15:24] LABS: Free Thyroxine 1.28 ng/dL (0.70-1.60); Triiodothyronine, Free 1.7 pg/mL (2.18-3.98)
--- NOTE | 2023-09-15 16:48 | NUR ---
SHIFT SUMMARY: PT ALERT AND ORIENTED X4, ABLE TO FOLLOW COMMANDS AND MAKE NEEDS KNOWN. ANXIOUS AT TIMES. BP AND HR STABLE. AFEBRILE. SPO2 >96% ON 6L NC. PT CONVERTED TO SR THIS AFTERNOON, DILT REMAINS ON STANDBY. PT DENIES CP/PRESSURE. PULSES STRONG AND EQUAL THROUGHOUT. PT WORE BIPAP MAJORITY OF THIS SHIFT SETTINGS 16/8, ABLE TO SWITCH TO NC FOR BREAKS AND MEALS. ABD SOFT, NON TENDER, BOWEL SOUNDS +. PT ABLE TO USE BSC VIA ONE PERSON ASSIST, NO BM. MEDICATED FOR ANXIETY X1, TOLERATED WELL. BED IN LOW, CALL LIGHT IN REACH, WILL REPORT TO ONCOMING RN.
[2023-09-16] VITALS (8 sets, daily range): BP systolic 132–173; BP diastolic 72–89
[2023-09-16 06:27] LABS: BASOPHILS PERCENT AUTO 0 % (0-2); EOSINOPHILS PERCENT AUTO 0 % (0-6); Hematocrit 31.6 % (33.0-51.0); Hemoglobin 10.5 g/dL (11.5-16.0); IMMATURE GRAN ABSOLUTE AUTO 0.02 K/mm3 (0.00-0.10); IMMATURE GRAN PERCENT AUTO 1 % (0-1); LYMPHOCYTES ABSOLUTE AUTO 0.71 K/mm3 (0.84-5.20); LYMPHOCYTES PERCENT AUTO 22 % (21-46); MONOCYTES ABSOLUTE AUTO 0.11 K/mm3 (0.16-1.47); MONOCYTES PERCENT AUTO 3 % (4-13); Mean Corpuscular HGB 29.6 pg (26.0-34.0); Mean Corpuscular HGB Conc 33.2 g/dL (31.5-36.5); Mean Corpuscular Volume 89 fL (80-100); Mean Platelet Volume 11.6 fL (9.1-12.4); NEUTROPHILS ABSOLUTE AUTO 2.47 K/mm3 (1.96-9.15); NEUTROPHILS PERCENT AUTO 75 % (41-73); Platelet Count 107 K/mm3 (150-400); RDW Coefficient Variation 12.6 % (11.7-14.2); RDW Standard Deviation 41.7 fL (35.1-46.3); Red Blood Cell Count 3.55 M/mm3 (3.80-5.20); White Blood Cell Count 3.31 K/mm3 (4.00-11.30)
[2023-09-16 06:42] LABS: Bun/Creatinine Ratio 61.1 (12.0-20.0); Creatinine, Blood 0.51 mg/dL (0.40-1.00)
--- NOTE | 2023-09-16 06:54 | NUR ---
SHIFT SUMMARY NO ACUTE EVENTS T/O NIGHT. PT A/O X 4. COOPERATIVE WITH CARE, AND ANXIOUS AT TIMES. CALL TO RESIDENT APPROX 2029 REGARDING ANXIETY, AND PT REQUESTING ATIVAN. CURRENT ORDER WITH ATIVAN BID AND LAST ATIVAN GIVEN AT 1700. ORDER FOR 0.25MG PO ATIVAN OT AND TO DECREASE MORPHINE DOSE TO 2MG FOR AIR HUNGER. PT SOB, ANXIOUS AND SPO2 DOWN TO 85% WHEN USING BSC. RELIEVED WITH ATIVAN AND NORCO. VSS. ON NC AND BIPAP AT TIMES. SR. BEDSIDE REPORT GIVEN TO DAY RN.
--- NOTE | 2023-09-16 18:48 | NUR ---
SHIFT SUMMARY PT A/OX4 VERY ANXIOUS THROUGHOUT SHIFT. PTVSS THROUGHOUT SHIFT WITH SATS IN THE 90'S ON 3-5L NC AND PERIODIC PERIODS ON BIPAP. NO REPORT OF CHEST PAIN/PRESSURE. PT REPORTED SOB/DYSPNEA MULTIPLE TIMES DURING SHIFT, REQUESTED BREATHING TREATMENTS. PT REQUESTED PO ATIVAN FOR ANY TIME SHE WAS TO GET UP FROM HER BED, PT MADE AWARE THAT SHE COULD ONLY RECIEVE 2 DOSES THROUGHOUT THE ENTIRE DAY. PT AGREED TO HOLD OFF TAKING HER EVEING DOSE OF ATIVAN. PT RECIEVED MORPHINE ONCE DURING SHIFT FOR AIR HUNGER, PT REPRTED RELIEF. PT ENCOURAGED TO WORK WITH THERAPY AND INFORMED THAT [facility] WOULD LIKE PT TO UP TO A CHAIR PERIODICALLY, PT VEBALIZED UNDERSTANDING. PLEN IS TO D/C TO [facility] MONDAY.
[2023-09-17 04:22] LABS: BASOPHILS PERCENT AUTO 0 % (0-2); EOSINOPHILS PERCENT AUTO 0 % (0-6); Hematocrit 32.5 % (33.0-51.0); Hemoglobin 10.9 g/dL (11.5-16.0); IMMATURE GRAN ABSOLUTE AUTO 0.02 K/mm3 (0.00-0.10); IMMATURE GRAN PERCENT AUTO 1 % (0-1); LYMPHOCYTES ABSOLUTE AUTO 0.48 K/mm3 (0.84-5.20); LYMPHOCYTES PERCENT AUTO 11 % (21-46); MONOCYTES ABSOLUTE AUTO 0.15 K/mm3 (0.16-1.47); MONOCYTES PERCENT AUTO 4 % (4-13); Mean Corpuscular HGB 29.9 pg (26.0-34.0); Mean Corpuscular HGB Conc 33.5 g/dL (31.5-36.5); Mean Corpuscular Volume 89 fL (80-100); Mean Platelet Volume 11.7 fL (9.1-12.4); NEUTROPHILS ABSOLUTE AUTO 3.68 K/mm3 (1.96-9.15); NEUTROPHILS PERCENT AUTO 85 % (41-73); Platelet Count 107 K/mm3 (150-400); RDW Coefficient Variation 12.7 % (11.7-14.2); RDW Standard Deviation 41.2 fL (35.1-46.3); Red Blood Cell Count 3.64 M/mm3 (3.80-5.20); White Blood Cell Count 4.33 K/mm3 (4.00-11.30)
[2023-09-17 04:47] LABS: Bun/Creatinine Ratio 67.7 (12.0-20.0); Calcium, Blood 9.4 mg/dL (8.5-10.1); Creatinine, Blood 0.5 mg/dL (0.40-1.00); Potassium, Blood 3.8 mmol/L (3.5-5.5)
[2023-09-17 05:07] VITALS: BP 141/87
--- NOTE | 2023-09-17 05:57 | NUR ---
SET UP AND LAY OUT INSPECTOR SUMMARY PT HAS REMANIED ALERT AND ORIENTED THIS SHIFT COMMUNICATING APPROPRIATELY W STAFF. PT MAINTAINED SPO2 >92% ON BIPAP 14/6 W 30%. PT HAD EPSIODES OF SEVERE DYSPNEA W EXERTION THIS SHIFT WHILE GETTING TO AND FROM THE BSC. PT DID NOT DESAT DURING THESE EVENTS BUT HAD INCREASED WOB AND ANXIETY. PT'S MONITOR SHOWING SR 60'S THIS SHIFT. BP WNL AND STABLE. PT AFEBRILE THIS SHIFT. WILL REPORT TO ONCOMING RN.
[2023-09-17 08:17] VITALS: BP 160/96
[2023-09-17 15:46] VITALS: BP 160/91
--- NOTE | 2023-09-17 18:24 | NUR ---
Shift Summary Pt alert, oriented x4; anxious but cooperative with care. Pt up to bsc with 1 person assist. Pt reports pain to shoulder and headached this evening, medicated per emar. Pt requesting anxiety medications this am, medicated per emar. Pt sob with activity, requesting to wear the bipap while up to bsc. Spo2 >90% while on bipap 14/6 30% fio2, off bipap for meals and 1.5 hour break this evening. Pt sleeping intermittently t/o shift, while on bipap. Pt denies chest pain/pressure, nausea, dizziness and numb/tingling. Abd soft, nontender with hypoactive bt t/o; pt reports last bm 09/16/23. No other acute changes noted. Will continue to monitor.
[2023-09-17 19:43] VITALS: BP 160/85
--- NOTE | 2023-09-17 22:20 | NUR ---
ASSUMPTION OF CARE AFTER RECEIVING REPORT FROM FABRICIO MCFADDEN, THIS RN ASSUMED CARE AT APPROX [id number]. PATIENT RESTING IN BED WITH BIPAP IN PLACE, / 30%. IS ALERT AND ORIENTED X4. DOES REPORT MILD ANXIETY, REQUESTING PRN PO ATIVAN TO ASSIST WITH SLEEP. ADMINISTERED PER EMAR. DENIES PAIN. TELEMETRY SHOWING SINUS 60's. BP ELEVATED, SBP 160's, AT ASSUMPTION OF CARE AND THROUGHOUT DAY. PATIENT REPORTS THAT HER BLOOD PRESSURE TENDS TO TREND IN THE 160's. DENIES CHEST PAIN, PRESSURE. DENIES SHORTNESS OF BREATH AT REST, DOES EXPERIENCE MILD TACHYPNEA WITH MOBILITY. SATS >90% ON BIPAP. USES 3-4L VIA NASAL CANNULA WHILE OFF OF BIPAP. IS A STAND BY ASSIST TO BSC. USES CALL LIGHT APPROPRIATELY, WITHIN REACH.
[2023-09-17 23:04] VITALS: BP 158/80
[2023-09-18 04:18] LABS: BASOPHILS PERCENT AUTO 0 % (0-2); EOSINOPHILS PERCENT AUTO 0 % (0-6); Hematocrit 33.9 % (33.0-51.0); Hemoglobin 11.3 g/dL (11.5-16.0); IMMATURE GRAN ABSOLUTE AUTO 0.03 K/mm3 (0.00-0.10); IMMATURE GRAN PERCENT AUTO 1 % (0-1); LYMPHOCYTES ABSOLUTE AUTO 0.58 K/mm3 (0.84-5.20); LYMPHOCYTES PERCENT AUTO 11 % (21-46); MONOCYTES ABSOLUTE AUTO 0.18 K/mm3 (0.16-1.47); MONOCYTES PERCENT AUTO 3 % (4-13); Mean Corpuscular HGB 29.8 pg (26.0-34.0); Mean Corpuscular HGB Conc 33.3 g/dL (31.5-36.5); Mean Corpuscular Volume 89 fL (80-100); NEUTROPHILS ABSOLUTE AUTO 4.44 K/mm3 (1.96-9.15); NEUTROPHILS PERCENT AUTO 85 % (41-73); Platelet Count 103 K/mm3 (150-400); RDW Coefficient Variation 12.6 % (11.7-14.2); RDW Standard Deviation 41.8 fL (35.1-46.3); Red Blood Cell Count 3.79 M/mm3 (3.80-5.20); White Blood Cell Count 5.23 K/mm3 (4.00-11.30)
[2023-09-18 04:58] VITALS: BP 145/80
--- NOTE | 2023-09-18 05:07 | NUR ---
SHIFT SUMMARY NO ACUTE CHANGES SINCE ASSUMPTION OF CARE NOTE. PATIENT SLEPT THROUGHOUT SHIFT, REMAINS EASILY AROUSABLE TO VERBAL STIMULI. TELEMETRY SHOWING SINUS 60's. BP REMAINS ELEVATED, SBP 140's-160's. USED BIPAP WHILE SLEEPING 14/6 30%, SATS >90%. IS ON 3-4L VIA NASAL CANNULA WHILE AWAKE. IS UP TO BEDSIDE COMMODE WITH STAND BY ASSIST. VOIDING. NO BM THIS SHIFT. CALL LIGHT IN REACH. WILL REPORT TO ONCOMING RN.
[2023-09-18 07:53] VITALS: BP 176/88
[2023-09-18 10:52] VITALS: BP 145/82
[2023-09-18 11:38] LABS: SARS-Cov-2 (COVID-19) PCR, MMC NEGATIVE (NEGATIVE)
[2023-09-18] MEDS ORDERED: Acetaminophen325 M1 PO (12:08)
[2023-09-18] MEDS ORDERED: DOCU100 PO (12:08)
[2023-09-18] MEDS ORDERED: ELIQUIS5 M2 PO (12:08)
[2023-09-18] MEDS ORDERED: FAMO20 PO (12:09)
[2023-09-18] MEDS ORDERED: LOSA50 PO (12:12)
[2023-09-18] MEDS ORDERED: IPRAT-ALBUT 0.5-3 ML INH (12:12)
[2023-09-18] MEDS ORDERED: LACT PO (12:13)
[2023-09-18] MEDS ORDERED: DULCOLAX400 MG/5 M PO (12:13)
[2023-09-18] MEDS ORDERED: NYSTATIN100000 UNI MT (12:15)
[2023-09-18 16:32] VITALS: BP 158/111
--- NOTE | 2023-09-18 16:49 | NUR ---
DISCHARGE SUMMARY Pt alert, oriented x4; anxious but cooperative with care. Pt resting in bed, up with therapy this am with bipap in place. Pt on bipap 14/6 bur 14 26-30% fio2, on majorty of day, pt transfered to 3l o2 via nc at lunch time, and titrated down to 2l o2 via nc, pt reports significant sob with activity. Tele sinus 60-90's; bp elevated; md aware, orders for losartan this am. Abd soft, nontender +bt; pt intermittently reporting chronic/intermittent cramp to left side used heat to alleviate. Other vss. No other acute changes noted. Report given to Alvina at 1655 when patient left room with [facility].
== END 2023-09-18 16:48 | DRG 871 ==
LOC: ER 19:12 → PCU 21:20 → ER 21:26 → PCU 21:57
PROVIDERS: Family Medicine; Hospitalist; Student in an Organized Health Care Education/Training Program; ADMIT Student in an Organized Health Care Education/Training Program
PROC: 5A09457 Assistance with Respiratory Ventilation, 24-96 Consecutive Hours, Continuous Positive Airway Pressure (ICD-10-PCS; principal; 2023-09-14)
PROC: 3E03329 Introduction of Other Anti-infective into Peripheral Vein, Percutaneous Approach (ICD-10-PCS; 2023-09-14)
DX: A40.8 Other streptococcal sepsis (principal); J18.9 Pneumonia, unspecified organism; J96.22 Acute and chronic respiratory failure with hypercapnia; J44.1 Chronic obstructive pulmonary disease with (acute) exacerbation; E87.29 Other acidosis; J96.11 Chronic respiratory failure with hypoxia; J84.9 Interstitial pulmonary disease, unspecified; J44.0 Chronic obstructive pulmonary disease with (acute) lower respiratory infection; R65.20 Severe sepsis without septic shock; I48.91 Unspecified atrial fibrillation; M79.7 Fibromyalgia; I10 Essential (primary) hypertension; E78.5 Hyperlipidemia, unspecified; F32.A Depression, unspecified; F41.9 Anxiety disorder, unspecified; G89.4 Chronic pain syndrome; F90.9 Attention-deficit hyperactivity disorder, unspecified type; E66.9 Obesity, unspecified; Z99.81 Dependence on supplemental oxygen; Z87.891 Personal history of nicotine dependence; Z11.52 Encounter for screening for COVID-19; Z79.51 Long term (current) use of inhaled steroids; Z79.52 Long term (current) use of systemic steroids; Z68.25 Body mass index [BMI] 25.0-25.9, adult
CPT/HCPCS: 0241U; 36415; 71045; 80048; 80053; 82803; 83605; 83735; 83880; 84145; 84439; 84443; 84481; 84484; 85025; 85379; 87040; 93005; 93010; 93306; 94640; 94644; 94660; 94664; 94762; 96365; 96366; 96367; 96368; 96375; 96376; 97110; 97161; 97165; 97535; 99285-25; A9270; J0456; J0696; J1650; J2270; J2930; J3475; J7030; J7050; Q2036; U0002

== ENCOUNTER 2023-09-24 06:38 | Inpatient (IN) | payer MEDICARE, OTHER ==
[2023-09-24] VITALS (56 sets, daily range): BP systolic 75–145; BP diastolic 49–99
[~2023-09-24] VITALS: Ht 162.6 cm; Wt 61.8 kg
[~2023-09-24 06:38] MED LIST changes: +Acetaminophen325 M1 PO; +DOCU100 PO; +DULCOLAX400 MG/5 M PO; +ELIQUIS5 M2 PO; +FAMO20 PO; +LACT PO; +LOSA50 PO; +NYSTATIN100000 UNI MT
[2023-09-24 06:54] LABS: Hemoglobin 12.8 g/dL (11.5-16.0); Mean Corpuscular HGB 29.8 pg (26.0-34.0); Mean Corpuscular HGB Conc 31.2 g/dL (31.5-36.5); Mean Corpuscular Volume 95 fL (80-100); Mean Platelet Volume 11.5 fL (9.1-12.4); Platelet Count 212 K/mm3 (150-400); RDW Coefficient Variation 13.2 % (11.7-14.2); RDW Standard Deviation 45.9 fL (35.1-46.3); White Blood Cell Count 32.15 K/mm3 (4.00-11.30)
[2023-09-24 07:17] LABS: Albumin, Blood 3.6 g/dL (3.4-5.0); Albumin/Globulin Ratio 1.1 (0.8-1.8); Bilirubin, Total 0.5 mg/dL (0.1-1.0); Bun/Creatinine Ratio 32.8 (12.0-20.0); Calcium, Blood 9.3 mg/dL (8.5-10.1); Creatinine, Blood 0.73 mg/dL (0.40-1.00); Globulin, Blood 3.2 g/dL (2.2-4.0); Potassium, Blood 4.6 mmol/L (3.5-5.5); Total Protein, Blood 6.8 g/dL (6.4-8.2)
[2023-09-24 07:20] LABS: Source, Urine Foley catheter
[2023-09-24 07:26] LABS: BASOPHILS PERCENT MAN 0 % (0-2); EOSINOPHILS PERCENT MAN 0 % (0-6); LYMPHOCYTES ABSOLUTE MAN 14.46 K/mm3 (0.84-5.20); LYMPHOCYTES PERCENT MAN 45 % (21-46); MONOCYTES ABSOLUTE MAN 1.28 K/mm3 (0.16-1.47); MONOCYTES PERCENT MAN 4 % (4-13); NEUTROPHILS ABSOLUTE MAN 16.39 K/mm3 (1.96-9.15); SEG NEUTROPHILS PERCENT MAN 51 % (41-73); TOTAL CELLS COUNTED 100
[2023-09-24 07:31] LABS: PCO2 Arterial 65.4 mmHg (35-45)
[2023-09-24 07:32] LABS: pH Blood Arterial 7.26 (7.35-7.45)
[2023-09-24 07:33] LABS: PO2 Arterial >500 mmHg (80-100)
[2023-09-24 07:37] LABS: Appearance, Urine Clear (Clear); Bilirubin, Urine Neg (Neg); Blood, Urine 3+ (Neg); Color, Urine Yellow (P-Yellow); Glucose Qualitative, Urine Neg (Neg); Ketones, Urine Neg (Neg); Leukocyte Esterase, Urine Neg (Neg); Nitrite, Urine Neg (Neg); Protein, Urine 2+ (Neg); Urobilinogen, Urine NORM (Normal)
[2023-09-24 08:24] LABS: Bacteria Few /hpf; Squamous Epithelial Cells Not Seen /hpf (Few); White Blood Cells, Urine 0-2 /hpf (0-5)
[2023-09-24 09:45] LABS: Influenza A, PCR NEGATIVE (NEGATIVE); Influenza B, PCR NEGATIVE (NEGATIVE); Resp Syncytial Virus, PCR NEGATIVE (NEGATIVE); SARS-Cov-2 (COVID-19) PCR, MMC NEGATIVE (NEGATIVE)
[2023-09-24 10:03] LABS: International Normalized Ratio 0.91; Prothrombin Time Results 9.6 Sec (9.7-11.5)
--- NOTE | 2023-09-24 11:35 | NUR ---
PT ADMITTED TO ICU AT 1015 FROM ER FOR RESP FAILURE. PT ARRIVED ON MECH VENT W RT AND INTERNET DEVELOPER. PT INITIALLY ON CARDIZEM AT 5MG/HR FOR AFIB RVR, RATE 150'S ON ADMIT. BP STABLE/HTN, CARDIZEM TITRATED UP TO 10MG ON ADMIT AND UP AGAIN TO 15MG AROUND 1100. PROPOFOL INITIALLY AT 17MCG W RASS +1/+2 AND TITRATED UP TO 30MCG. RASS NOW AROUND 0/-1. VENT SETTINGS 20/380/30/5. PT ABLE TO OPEN EYES TO VOICE AND FOLLOW SIMPLE COMMANDS, PT NODS HEAD NO TO PAIN, MYOCLONIC LIKE JERKING NOTED; IMPROVED ONCE PROPOFOL INCREASED TO 30MCG. HEPARIN GTT STARTED PER PHARMACY AT AT 15UNITS/KG/HR. 1700CC NS GIVEN PER ER ORDERS. POWERGLIDE PLACED TO MANOHAR. DR LIRIANO CONSULTED AND IS AWARE; UPDATE GIVEN.
--- NOTE | 2023-09-24 14:23 | NUR ---
PIVOT STARTED AT 20CC/HR PER DR LIRIANO, NUTRITION CONSULT PLACED. HEP GTT DC'D PER DR LIRIANO, LOVENOX STARTED. PT HYPOTENSIVE WITH MAP >65. CARDIZEM AT 15MG/HR, RATE AROUND 100-110. PROPOFOL AT 25MCG.
[2023-09-24 15:47] LABS: Acinetobacter baumannii DNA Not Detected copy/mL (NOT DETECT); Adenovirus DNA Not Detected (NOT DETECT); Chlamydia pneumonia Not Detected (NOT DETECT); Enterobacter cloacae DNA Not Detected copy/mL (NOT DETECT); Escherichia coli DNA Not Detected copy/mL (NOT DETECT); Haemophilus influenzae DNA Not Detected copy/mL (NOT DETECT); Human Coronavirus RNA Not Detected (NOT DETECT); Human Metapneumovirus RNA Not Detected (NOT DETECT); Influenza virus A RNA Not Detected (NOT DETECT); Influenza virus B RNA Not Detected (NOT DETECT); Klebsiella aerogenes DNA Not Detected copy/mL (NOT DETECT); Klebsiella oxytoca DNA Not Detected copy/mL (NOT DETECT); Klebsiella pneumoniae DNA Not Detected copy/mL (NOT DETECT); Legionella pneumophila Not Detected (NOT DETECT); Moraxella catarrhalis DNA Not Detected copy/mL (NOT DETECT); Mycoplasma pneumoniae Not Detected (NOT DETECT); Parainfluenza virus RNA Not Detected (NOT DETECT); Proteus sp DNA Not Detected copy/mL (NOT DETECT); Pseudomonas aeruginosa DNA Not Detected copy/mL (NOT DETECT); Respiratory syncytial Vir RNA Not Detected (NOT DETECT); Rhinovirus+Enterovirus RNA Not Detected (NOT DETECT); Serratia marcescens DNA Not Detected copy/mL (NOT DETECT); Staphylococcus aureus DNA Not Detected copy/mL (NOT DETECT); Streptococcus agalactiae DNA Not Detected copy/mL (NOT DETECT); Streptococcus pneumoniae DNA Not Detected copy/mL (NOT DETECT); Streptococcus pyogenes DNA Not Detected copy/mL (NOT DETECT)
--- NOTE | 2023-09-24 16:24 | NUR ---
DR LIRIANO BY TO CHECK ON PT, UPDATE GIVEN. NEOSYNEPHRINE GTT TO BE STARTED IF MAP FALLS BELOW [address] LIRIANO. PT REMAINS IN A FIB W RATE CONTROLLED AROUND 100. CARDIZEM AT 15MG/HR.
--- NOTE | 2023-09-24 18:14 | NUR ---
DR LIRIANO CALLED R/T HYPOTENSION W MAP <65. 1L LR BOLUS ORDERED, NEOSYNEPHRINE ORDERED TO KEEP MAP >65.
--- NOTE | 2023-09-24 21:02 | NUR ---
ASSUMPTION OF CARE: RECEIVED REPORT FROM SHAYLA MCFADDEN. PT INTUBATED AND SEDATED. PT AWAKENS TO VERBAL STIMULI, WITHDRAWS TO PAIN. ABLE TO SHAKE HEAD YES AND NO TO QUESTIONS AND FOLLOW COMMANDS. PROPOFOL TURNED DOWN TO 20 MCG/KG/MIN FOR ASSESSMENT. PT APPEARED UNCOMFORTABLE ALTHOUGH SHE DENIED PAIN. PROPOFOL TURNED BACK UP TO 25 MCG/KG/MIN FOR COMFORT AND VENT COMPLIANCE. VENT SETTINGS AC/VC 20/380/5/30%. SPO2 >95%. DENIES SOB. PSS DELIVERY PROFESSIONAL IN PLACE, AFIB WITH HR 80'S-100'S. CARDIZEM DRIP INFUSING AT 15 MG/HR. SBP 90'S-100'S. DENIES CHEST PAIN OR PRESSURE. PIV'S INTACT AND PATENT. POWERGLIDE TO MANOHAR, INFUSING. TUBE FEED AT 20 ML/HR THROUGH OGT. PAEZ PATENT AND DRAINING TO GRAVITY. NO BM YET. SISTER CALLED FOR AN UPDATE ON PT CONDITION. SOFT BILATERAL WRIST RESTRAINTS IN PLACE FOR PROTECTION OF AIRWAY. BED LOW AND LOCKED.
[2023-09-25] VITALS (71 sets, daily range): BP systolic 86–150; BP diastolic 51–95
[2023-09-25 03:42] LABS: Hematocrit 30.8 % (33.0-51.0); Hemoglobin 10.3 g/dL (11.5-16.0); Mean Corpuscular HGB 29.9 pg (26.0-34.0); Mean Corpuscular HGB Conc 33.4 g/dL (31.5-36.5); Mean Platelet Volume 10.1 fL (9.1-12.4); Platelet Count 129 K/mm3 (150-400); RDW Coefficient Variation 13.3 % (11.7-14.2); RDW Standard Deviation 43.5 fL (35.1-46.3); Red Blood Cell Count 3.45 M/mm3 (3.80-5.20); White Blood Cell Count 13.95 K/mm3 (4.00-11.30)
[2023-09-25 03:46] LABS: Mean Corpuscular Volume 89 fL (80-100)
[2023-09-25 03:59] LABS: Albumin, Blood 2.9 g/dL (3.4-5.0); Anion Gap 4 mmol/L (6-16); Blood Urea Nitrogen 23 mg/dL (8-24); Bun/Creatinine Ratio 42.3 (12.0-20.0); CO2, Blood 32 mmol/L (21-32); Calcium, Blood 8.5 mg/dL (8.5-10.1); Chloride, Blood 104 mmol/L (98-108); Creatinine, Blood 0.54 mg/dL (0.40-1.00); Glomerular Filtration Rate 100 (60-); Glucose, Blood 138 mg/dL (70-99); Magnesium, Blood 2.4 mg/dL (1.6-2.4); Phosphorus, Blood 2.3 mg/dL (2.5-4.9); Potassium, Blood 3.7 mmol/L (3.5-5.5); Sodium, Blood 140 mmol/L (136-145)
--- NOTE | 2023-09-25 05:40 | NUR ---
SHIFT SUMMARY: PT HAD NO ACUTE EVENTS T/O THE SHIFT. REMAINS INTUBATED AND SEDATED. VENT SETTINGS UNCHANGED T/O THE SHIFT. SPO2 >95%. PT OPENS EYES TO VERBAL STIMULI, FOLLOWS COMMANDS AND NODS HEAD YES AND NO TO QUESTIONS. DENIES PAIN. PT ANXIOUS AT TIMES, MEDICATED PER OCT. PROPOFOL AT 25 MCG/KG/MIN. CARDIZEM AT 5 MG/HR. DIRECTOR OF CONTENT AND PROGRAMMING IN PLACE, PT CONVERTED FROM AFIB TO NSR AT 2345, HR REMAINS IN THE 80'S. MAPS REMAIN >65. DENIES CHEST PAIN/PRESSURE. POWERGLIDE TO MANOHAR, PATENT AND INFUSING. PIV'S INTACT AND PATENT. PAEZ DRAINING TO GRAVITY. NO BM THIS SHIFT. TUBE FEED AT 20 ML/HR THROUGH OGT. BED LOW AND LOCKED.
--- NOTE | 2023-09-25 07:00 | NUR ---
CARE ASSUMPTION DURING BEDSIDE SHIFT REPORT THE PT IS LYING IN BED ALERT AND ORIENTED COMMUN ICATING APPRORPIATELY W STAFF. PT HAS INSULIN GTT INFUSING AT 3 UNITS/HR AND KCL INFUSING AT 100ML/HR. PT EXPRESSING ONGOING NAUSEA BUT NO EMESIS. PT IS ON RM AIR W SPO2 >94%. BP WNL AND STABLE. MONITOR SHOWING ST 110'S-120.
--- NOTE | 2023-09-25 07:00 | NUR ---
CARE ASSUMPTION DURING BEDSIDE SHIFT AJ PEREZ RN THE PT IS LYING IN BED INTUBATED ON THE VENTILATOR. PT AROUSES TO MY VOICE AND IS FOLLOWING COMMANDS. SPO2 >94% ON VENT AC/VC 20/380/5.0 W 30% FIO2. BP WNL AND STABLE. MONITOR SHOWING SR 80'S W CARDIZEM GTT INFUSING AT 5MG/HR. KPHOS INFUSING AT 100ML/HR AND PROPOFOL GTT INFUSING AT 25. DR. EDWARD IN ASSESSING PT. PROVIDER UPDATED THAT PT CONVERTED TO SR ON NOC SHIFT AND REMAINS ON CARDIZEM GTT. PROVIDER UPDATED ON PT'S NEURO STATUS AND THAT SHE IS FOLLOING COMMANDS. PROVIDER ORDERING THAT THE PT BE PLACED ON PS AND THAT SEDATION BE HELD FOR POSSIBLE EXTUBATION.
--- NOTE | 2023-09-25 17:37 | NUR ---
DAY SHIFT SUMMARY PT BEGAN SHIFT INTUBATED ON THE VENTILATOR BUT WAS EXTUBATED AT 1035 THIS AM AND SPENT A FEW HOURS ON BIPAP 14/6 W 40% FIO2 BEFORE SPENDING THE REST OF THE DAY ON 2-4L NC. PT DOES BECOME DYSPNEIC W EXERTION AND REQUIRES ADDITIONAL BREATHING TX. PT REMAINED IN SR THE SHIFT AND WAS TRANSITIONED TO PO CARDIZEM THIS AFTERNOON W CARDIZEM GTT DC'D. BP WNL AND STABLE. PT AFEBRILE HIS SHIFT. PT HAS DENIED ANY NAUSEA THIS SHIFT AND ONLY MINOR ACHES FOR PAIN. PT IS ALERT AND MOSTLY ORIENTED THOUGH SHE HAS BEEN CONFUSED ABOUT WHAT YEAR IT IS OTHERWIE SHE ANSWERS ALL OTHER ORIENTATION QUESTIONS APPROPRIATELY. PT TOLERATING PO INTAKE W/O ANY NAUSEA AND IS CURRENTLY EATING HER DINNER. PLAN IS FOR PT TO WEAR BIPAP TONIGHT WHEN SLEEPING. WILL REPORT TO ONCOMING RN.
--- NOTE | 2023-09-25 20:58 | NUR ---
ASSUMPTION OF CARE: RECEIVED REPORT FROM LYNN MCFADDEN. PT ALERT AND ORIENTED X3-4. ABLE TO ANSWER QUESTIONS AND MAKE NEEDS KNOWN. PT HAS SMALL PERIODS OF CONFUSION BUT IS VERY EASILY REORIENTED. PT ON 2L NC WHILE AWAKE AND BIPAP WITH SETTINGS 12/6/30% WHILE ASLEEP. SPO2 >95%. DENIES SOB. PT VISIBLY ANXIOUS AT TIMES AND HAS A FINE TREMOR. RN LACTATION CONSULTANT IN PLACE, SR WITH HR 80'S, SBP 130'S. DENIES CHEST PAIN OR PRESSURE. PT HAS C/O PAIN T/O BODY, RELIEVED MILDLY WITH REPOSITIONING. PT ABLE TO SHIFT AROUND IN THE BED WITH MINIMAL ASSIST. PAEZ IN PLACE DRAINING TO GRAVITY YELLOW URINE. NO BM YET. POWERGLIDE TO MANOHAR, INFUSING TKO. PIV SALINE LOCKED. TOLERATING PO INTAKE WELL. BED LOW AND LOCKED, CALL LIGHT IN REACH.
[2023-09-26] VITALS (12 sets, daily range): BP systolic 109–181; BP diastolic 68–91
--- NOTE | 2023-09-26 06:21 | NUR ---
SHIFT SUMMARY: PT ALERT AND ORIENTED X4. ABLE TO ANSWER QUESTIONS AND MAKE NEEDS KNOWN. PT ON BIPAP T/O THE NIGHT, SETTINGS 12//30%. SPO2 >95%. DENIES SOB. PT HAD FREQUENT BREAKS FOR ORAL CARE AND SIPS OF WATER. TOLERATED WELL. PT CURRENTLY ON NC AT 2L. LUNG SOUNDS CLEAR IN UPPER LOBES, DIM IN THE BASES. PT ABLE TO SLEEP OFF AND ON T/O THE SHIFT. JAVA SYSTEMS ANALYST IN PLACE, SR WITH PAC'S, HR 80'S. SBP 120-130'S. DENIES CHEST PAIN/PRESSURE. PAEZ IN PLACE, DRAINING YELLOW URINE TO GRAVITY. POWERGLIDE TO MANOHAR, INFUSING TKO. PIV'S INTACT AND SALINE LOCKED. NO BM THIS SHIFT. PT MOVES AROUND IN BED WITH MINIMAL ASSIST. BED LOW AND LOCKED, CALL LIGHT IN REACH. WILL GIVE REPORT TO ONCOMING RN.
[2023-09-26 08:54] LABS: BASOPHILS ABSOLUTE AUTO 0.01 K/mm3 (0.00-0.23); BASOPHILS PERCENT AUTO 0 % (0-2); EOSINOPHILS ABSOLUTE AUTO 0.05 K/mm3 (0.00-0.68); EOSINOPHILS PERCENT AUTO 1 % (0-6); Hematocrit 34.1 % (33.0-51.0); Hemoglobin 10.8 g/dL (11.5-16.0); IMMATURE GRAN ABSOLUTE AUTO 0.02 K/mm3 (0.00-0.10); IMMATURE GRAN PERCENT AUTO 0 % (0-1); LYMPHOCYTES ABSOLUTE AUTO 3.75 K/mm3 (0.84-5.20); LYMPHOCYTES PERCENT AUTO 41 % (21-46); MONOCYTES ABSOLUTE AUTO 0.75 K/mm3 (0.16-1.47); MONOCYTES PERCENT AUTO 8 % (4-13); Mean Corpuscular HGB 29.4 pg (26.0-34.0); Mean Corpuscular HGB Conc 31.7 g/dL (31.5-36.5); Mean Corpuscular Volume 93 fL (80-100); Mean Platelet Volume 10.6 fL (9.1-12.4); NEUTROPHILS ABSOLUTE AUTO 4.62 K/mm3 (1.96-9.15); NEUTROPHILS PERCENT AUTO 50 % (41-73); Platelet Count 140 K/mm3 (150-400); RDW Coefficient Variation 13.7 % (11.7-14.2); RDW Standard Deviation 46.8 fL (35.1-46.3); Red Blood Cell Count 3.67 M/mm3 (3.80-5.20)
[2023-09-26 09:11] LABS: Bun/Creatinine Ratio 33.5 (12.0-20.0); Calcium, Blood 8.5 mg/dL (8.5-10.1); Creatinine, Blood 0.57 mg/dL (0.40-1.00); Magnesium, Blood 2.3 mg/dL (1.6-2.4); Phosphorus, Blood 3.5 mg/dL (2.5-4.9); Potassium, Blood 3.6 mmol/L (3.5-5.5)
--- NOTE | 2023-09-26 11:18 | NUR ---
Spiritual Care Visit. Pt. is sitting up in a chair resting but responds when I enter the room. Pt. seems unsttled, and during introductions verbalized her desire to minimize chit-chat, but tthat she woudl like this general manager road production to pray for her. Prayed with Pt. Pt. verbalized gratitude for the spiritual care visit.
--- NOTE | 2023-09-26 18:19 | NUR ---
SHIFT SUMMARY; ASSUMED CARE AT 0700. A/A/OX4, 2L O2 VIA NC. SATS MAINTANING >94%, PAEZ REMOVED TODAY, USING BSC WITH MINIMAL ASSISTANCE. WORKED WITH PT/OT. PLEASANT AND COOPERATIVE WITH CARE. VSS, STATUS CHANGED TO PCU, WILL CONTINUE TO MONITOR AND TREAT UNTIL CHANGE OF SHIFT.
[2023-09-27] VITALS (8 sets, daily range): BP systolic 125–160; BP diastolic 68–92
[2023-09-27 04:25] LABS: Bun/Creatinine Ratio 42.5 (12.0-20.0); Creatinine, Blood 0.49 mg/dL (0.40-1.00); Potassium, Blood 3.9 mmol/L (3.5-5.5)
--- NOTE | 2023-09-27 05:53 | NUR ---
SHIFT SUMMARY A/Ox4 AND COOPERATIVE WITH CARE. ANSWERS QUESTIONS APPROPRIATELY AND ABLE TO MAKE HER NEEDS KNOWN. INTERMITTENT ANXIETY NOTED. NO ACUTE EVENTS OVERNIGHT, FOR PT WAS ABLE TO SLEEP T/O MOST OF THE NIGHT. CARDIAC, REMAINS IN SR-ST RANGING 70-100'S WITH NO REPORTS OF CP OR PRESSURE DURING THE NIGHT. SBP REMAINS STABLE 100-130'S. RESPIRATORY, MAINTAINS SPO2 >90% ON 2L NC. CONTINUES TO DEMONSTRATE EXERTIONAL DYSPNEA, BUT IS MAINTAINS SATURATON WELL. USED BiPAP 08/02 30% FiO2 T/O MOST OF THE NIGHT. GI/, PAEZ CATH D/C'D 09/26, PT HAS SINCE VOIDED. ABLE TO STAND PIVOT TO [facility] WITH MINIMAL ASSISTANCE. CONTINUES TO REPORT GENERALIZED WEAKNESS. PAIN WELL CONTROLLED WITH PRN PAIN MEDICATIONS. NO NEW ORDERS AT THIS TIME, WILL REPORT TO HERMANN CARDOSO OF THIS NOTE.
--- NOTE | 2023-09-27 18:02 | NUR ---
ASSUMED CARE OF PT AT 0700 THIS AM. NO ACUTE EVENTS T/O THE DAY. PT ON 2L O2 VIA NC T/O THE SHIFT, DID NOT NEED BIPAP. PT IS AGREEABLE TO WEAR BIPAP AT NIGHT FOR SLEEPING. PT HAD VISITORS THIS AM AND THIS EVENING. PER DISCUSSION WITH CARE MANAGERS, PT WILL HAVE A TRILOGY DELIVERED TO HER HOSPITAL ROOM TOMORROW FOR HER TO TRIAL AND THEN TAKE HOME. SEE DOCUMENTED VS AND ASSESSMENT. PT ABLE TO USE CALL LIGHT FOR NEEDS, CALM AND COOPERATIVE WITH CARE. WILL CONTINUE TO MONITOR/TREAT AND GIVE REPORT TO NOC SHIFT RN.
--- NOTE | 2023-09-27 21:41 | NUR ---
ASSUMED CARE PT IS A&O X4; SPO2 >92% ON BIPAP; RATE IN THE 90'S; MAP >65. NO ACUTE EVENTS AT THIS TIME. AMBULATES WELL TO BEDSIDE COMMODE W/ SBA.
[2023-09-28 08:32] VITALS: BP 143/74
[2023-09-28] MEDS ORDERED: NICODERM CQ1 EAC3 TOP (10:54)
[2023-09-28] MEDS ORDERED: PRED20 PO (10:54)
[2023-09-28 11:43] VITALS: BP 168/80
--- NOTE | 2023-09-28 13:00 | NUR ---
ASSUMED CARE OF PT AT 0700 THIS AM. NO ACUTE EVENTS T/O THE AM. HOME TRILOGY UNIT DELIVERED BY JUAN CARLOS, WHO ALSO PROVIDED TEACHING FOR THE MACHINE'S HOME USE. PT HAS FAMILY AT THE BEDSIDE FOR TEACHING, DISCHARGE INSTRUCTIONS REVIEWED W PT AND FAMILY INCLUDING MEDICATION LIST, NEW PRESCRIPTIONS, FOLLOW UP APPOINTMENTS AND EDUCATION MATERIALS. PT'S FAMILY BROUGHT IN HER HOME O2 FOR TRANSPORT HOME, HOME HEALTH TO CALL PT/FAMILY AND ESTABLISH CARE TODAY. PT AND FAMILY VERBALIZE UNDERSTANDING OF EDUCATION/DISCHARGE TEACHING AND HAVE NO FURTHER QUESTIONS AT THIS TIME. IV AND POWERGLIDE REMOVED, SITES WNL. NO FURTHER DISCHARGE NEEDS IDENTIFIED. PT DISCHARGED HOME VIA WHEELCHAIR WITH HOME O2 AND ALL PERSONAL BELONGINGS VIA WHEELCHAIR IN THE CARE OF HER FAMILY.
== END 2023-09-28 12:12 | disposition home health service (06) | DRG 208 ==
LOC: ER 06:38 → ICUE 09:18 → PCU 09-27 06:24
PROVIDERS: Emergency Medicine; Internal Medicine; Internal Medicine Critical Care Medicine; Student in an Organized Health Care Education/Training Program; ADMIT Internal Medicine
PROC: 5A1935Z Respiratory Ventilation, Less than 24 Consecutive Hours (ICD-10-PCS; principal; 2023-09-24)
PROC: 0BH17EZ Insertion of Endotracheal Airway into Trachea, Via Natural or Artificial Opening (ICD-10-PCS; 2023-09-24)
PROC: 5A09357 Assistance with Respiratory Ventilation, Less than 24 Consecutive Hours, Continuous Positive Airway Pressure (ICD-10-PCS; 2023-09-25)
DX: J96.21 Acute and chronic respiratory failure with hypoxia (principal); A41.9 Sepsis, unspecified organism; R65.20 Severe sepsis without septic shock; G93.41 Metabolic encephalopathy; F11.20 Opioid dependence, uncomplicated; J44.1 Chronic obstructive pulmonary disease with (acute) exacerbation; E87.29 Other acidosis; J84.9 Interstitial pulmonary disease, unspecified; J96.22 Acute and chronic respiratory failure with hypercapnia; I48.91 Unspecified atrial fibrillation; F17.210 Nicotine dependence, cigarettes, uncomplicated; D69.6 Thrombocytopenia, unspecified; E66.9 Obesity, unspecified; F41.9 Anxiety disorder, unspecified; F32.A Depression, unspecified; F90.9 Attention-deficit hyperactivity disorder, unspecified type; I10 Essential (primary) hypertension; M79.7 Fibromyalgia; G89.29 Other chronic pain; Z11.52 Encounter for screening for COVID-19; Z90.710 Acquired absence of both cervix and uterus; Z88.8 Allergy status to other drugs, medicaments and biological substances; Z99.81 Dependence on supplemental oxygen; Z79.899 Other long term (current) drug therapy; Z79.01 Long term (current) use of anticoagulants; Z68.28 Body mass index [BMI] 28.0-28.9, adult
CPT/HCPCS: 0241U; 31500; 36415; 36600; 51702; 70450; 71045; 72125; 80048; 80053; 80069; 81001; 82803; 83605; 83735; 84100; 84145; 84484; 85025; 85027; 85610; 85730; 87040; 87070; 87086; 87205; 87633; 93005; 93010; 94002; 94003; 94640; 94644; 94660; 94664; 94760; 94762; 96365-59; 96366-59; 96368; 96375-59; 96376-59; 97161; 97166; 97530; 97535; 99285-25; A9270; C1751; J0330; J0696; J1644; J1650; J2060; J2704; J2920; J3475; J7030; J7050; J7060; J7120

== ENCOUNTER 2023-10-21 20:55 | Observation (INO) | payer MEDICARE, OTHER ==
[~2023-10-21] VITALS: Ht 162.6 cm; Wt 65.0 kg
[~2023-10-21 20:55] MED LIST changes: +NICODERM CQ1 EAC3 TOP
[2023-10-21] MEDS ORDERED: Ipratropium/Albuterol SulF 2.5-0.5MG/3 ML Amp INH ONE (21:05)
[2023-10-21 21:15] LABS: Hematocrit 38.4 % (33.0-51.0); Hemoglobin 12.5 g/dL (11.5-16.0); Mean Corpuscular HGB 29.7 pg (26.0-34.0); Mean Corpuscular HGB Conc 32.6 g/dL (31.5-36.5); Mean Corpuscular Volume 91 fL (80-100); Mean Platelet Volume 9.7 fL (9.1-12.4); Platelet Count 203 K/mm3 (150-400); RDW Coefficient Variation 13.4 % (11.7-14.2); RDW Standard Deviation 45.2 fL (35.1-46.3); Red Blood Cell Count 4.21 M/mm3 (3.80-5.20); White Blood Cell Count 12.21 K/mm3 (4.00-11.30)
[2023-10-21 21:19] LABS: Base Excess Venous 4.1 mmol/L; Bicarbonate Venous 26.5 mmol/L (24.0-30.0); PCO2 Venous 61.7 mmHg (38-42)
[2023-10-21 21:32] LABS: BAND PERCENT MAN 6 % (0-8); BASOPHILS PERCENT MAN 0 % (0-2); EOSINOPHILS PERCENT MAN 0 % (0-6); LYMPHOCYTES % ATYPICAL MANUAL 1 % (0-0); LYMPHOCYTES ABSOLUTE MAN 5.98 K/mm3 (0.84-5.20); LYMPHOCYTES PERCENT MAN 48 % (21-46); MONOCYTES ABSOLUTE MAN 0.97 K/mm3 (0.16-1.47); MONOCYTES PERCENT MAN 8 % (4-13); NEUTROPHILS ABSOLUTE MAN 5.25 K/mm3 (1.96-9.15); SEG NEUTROPHILS PERCENT MAN 37 % (41-73); TOTAL CELLS COUNTED 100
[2023-10-21] MEDS ORDERED: LORazepam 2 MG/ML 1ML Injection IV ONE (21:35)
[2023-10-21 21:56] LABS: Influenza A, PCR NEGATIVE (NEGATIVE); Influenza B, PCR NEGATIVE (NEGATIVE); Resp Syncytial Virus, PCR NEGATIVE (NEGATIVE); SARS-Cov-2 (COVID-19) PCR, MMC NEGATIVE (NEGATIVE)
[2023-10-21] MEDS ORDERED: FLU VACC QS2023-24(6MOS UP)/PF 60 MCG/0.5 ML SYRINGE IM ONE (22:45)
[2023-10-21] MEDS ORDERED: Acetaminophen 325 MG TABLET PO PRN (22:45)
[2023-10-21] MEDS ORDERED: LORazepam 2 MG/ML 1ML Injection IV PRN (22:50)
[2023-10-21] MEDS ORDERED: HYDROcodone 10-APAP 325 TAB PO PRN (22:55)
[2023-10-21] MEDS ORDERED: PredniSONE 20 MG Tab PO SCH (23:00)
[2023-10-21] MEDS ORDERED: Apixaban 5 MG Tab PO SCH (23:00)
[2023-10-21] MEDS ORDERED: dilTIAZem HCL 120 MG CAP.CD PO SCH (23:00)
[2023-10-21] MEDS ORDERED: Ipratropium/Albuterol SulF 2.5-0.5MG/3 ML Amp INH SCH (23:55)
[2023-10-21] MEDS ORDERED: Mometasone/Formoterol MDI 100/5 mcg 13 GM INH SCH (23:55)
[2023-10-22 00:05] VITALS: BP 118/67
[2023-10-22] MEDS ORDERED: Albuterol 2.5 MG/3 ML VIAL INH PRN (02:00)
[2023-10-22] MEDS ORDERED: Azithromycin 500 MG in NS 250 ML IV SCH (02:00)
[2023-10-22 02:11] LABS: Base Excess Venous 4.9 mmol/L; Bicarbonate Venous 27.8 mmol/L (24.0-30.0); PCO2 Venous 52.2 mmHg (38-42); pH Blood Venous 7.37 (7.34-7.37)
[2023-10-22 02:21] LABS: BASOPHILS ABSOLUTE AUTO 0.01 K/mm3 (0.00-0.23); BASOPHILS PERCENT AUTO 0 % (0-2); EOSINOPHILS PERCENT AUTO 0 % (0-6); Hematocrit 34.1 % (33.0-51.0); Hemoglobin 11.1 g/dL (11.5-16.0); IMMATURE GRAN ABSOLUTE AUTO 0.02 K/mm3 (0.00-0.10); IMMATURE GRAN PERCENT AUTO 0 % (0-1); LYMPHOCYTES ABSOLUTE AUTO 0.29 K/mm3 (0.84-5.20); LYMPHOCYTES PERCENT AUTO 4 % (21-46); MONOCYTES ABSOLUTE AUTO 0.07 K/mm3 (0.16-1.47); MONOCYTES PERCENT AUTO 1 % (4-13); Mean Corpuscular HGB 29.8 pg (26.0-34.0); Mean Corpuscular HGB Conc 32.6 g/dL (31.5-36.5); Mean Corpuscular Volume 91 fL (80-100); Mean Platelet Volume 9.8 fL (9.1-12.4); NEUTROPHILS ABSOLUTE AUTO 7.26 K/mm3 (1.96-9.15); NEUTROPHILS PERCENT AUTO 95 % (41-73); Platelet Count 169 K/mm3 (150-400); RDW Coefficient Variation 13.3 % (11.7-14.2); Red Blood Cell Count 3.73 M/mm3 (3.80-5.20); White Blood Cell Count 7.65 K/mm3 (4.00-11.30)
[2023-10-22 02:39] LABS: Albumin, Blood 3.3 g/dL (3.4-5.0); Albumin/Globulin Ratio 1.1 (0.8-1.8); Bilirubin, Total 0.2 mg/dL (0.1-1.0); Bun/Creatinine Ratio 31.5 (12.0-20.0); Calcium, Blood 9.3 mg/dL (8.5-10.1); Creatinine, Blood 0.54 mg/dL (0.40-1.00); Globulin, Blood 3.1 g/dL (2.2-4.0); Magnesium, Blood 2.5 mg/dL (1.6-2.4); Potassium, Blood 3.6 mmol/L (3.5-5.5); Total Protein, Blood 6.4 g/dL (6.4-8.2)
[2023-10-22 04:27] VITALS: BP 97/55
--- NOTE | 2023-10-22 04:30 | NUR ---
SHIFT SUMMARY. PT ARRIVED ON UNIT AT ABOUT ~2330 LAST NIGHT. ARRIVED ON UNIT ON BIPAP AND HAS REMAINED ON BIPAP SINCE. TOLERATING WELL, HAS BEEN ABLE TO SLEEP THROUGH MOST OF SHIFT SINCE ARRIVAL. NO PAIN REPORTED SINCE ARRIVAL. TELE ON THROUGHOUT SHIFT, NO ACUTE CHANGES OR EVENTS THUS FAR. ABX ADMINISTERED ON SCHEDULE WITHOUT DIFFICULTY. COOPERATIVE WITH CARE. EDUCATED FINANCE MGR LIGHT USE. BEDREST SINCE ARRIVAL. TOLERATED PO INTAKE WELL WHOLE WITH WATER. ADMISSION PROCESS COMPLETED PER PROTOCOL. BED LOCKED IN LOWEST POSITION. CALL LIGHT LEFT WITHIN REACH. CONTINUING TO MONITOR.
[2023-10-22 07:35] VITALS: BP 112/65
[2023-10-22] MEDS ORDERED: DULoxetine HCL 60 MG Capsule DR PO SCH (09:00)
[2023-10-22] MEDS ORDERED: Losartan Potassium 50 MG Tab PO SCH (09:00)
[2023-10-22] MEDS ORDERED: Lactobacil 2-S.Thermo-Bifido 1 1 Cap PO SCH (09:00)
[2023-10-22] MEDS ORDERED: Docusate Sodium 100 MG Cap PO SCH (09:00)
[2023-10-22] MEDS ORDERED: PredniSONE 20 MG Tab PO SCH (09:00)
[2023-10-22] MEDS ORDERED: ALBU2.5V5 INH (11:26)
[2023-10-22] MEDS ORDERED: AZIT500 PO (11:28)
[2023-10-22] MEDS ORDERED: LORA.5 PO (11:29)
[2023-10-22] MEDS ORDERED: PROBIOTIC1 EA14 PO (11:39)
--- NOTE | 2023-10-22 17:49 | NUR ---
DISHCARGE: PT D/C FROM [facility] AT 1750 VIA WHEELCHAIR. DISCHARGE INSTRUCTIONS AND EDUCATION PROVIDED TO PT AND DAUGHTER. ALL BELONGINGS WITH PT.
== END 2023-10-22 18:00 | disposition home or self-care (01) ==
LOC: ER 20:55 → PCU 20:56
PROVIDERS: Emergency Medicine; ADMIT Student in an Organized Health Care Education/Training Program
DX: J96.22 Acute and chronic respiratory failure with hypercapnia (principal); J96.21 Acute and chronic respiratory failure with hypoxia; I48.20 Chronic atrial fibrillation, unspecified; I10 Essential (primary) hypertension; E66.9 Obesity, unspecified; M79.7 Fibromyalgia; F90.9 Attention-deficit hyperactivity disorder, unspecified type; G47.33 Obstructive sleep apnea (adult) (pediatric); G89.29 Other chronic pain; J44.1 Chronic obstructive pulmonary disease with (acute) exacerbation; Z99.81 Dependence on supplemental oxygen; Z79.01 Long term (current) use of anticoagulants; Z79.899 Other long term (current) drug therapy; Z87.891 Personal history of nicotine dependence; Z88.8 Allergy status to other drugs, medicaments and biological substances
CPT/HCPCS: 0241U; 36415; 71045; 80053; 82803; 83735; 83880; 84145; 84484; 85025; 93005; 93010; 94640; 94660; 94664; 94762; 96374; 99285-25; A9270; J0456; J2060; J7050; J7512

== ENCOUNTER 2023-12-14 12:58 | Observation (INO) | payer MEDICARE, OTHER ==
[~2023-12-14] VITALS: Ht 157.5 cm; Wt 66.2 kg
[~2023-12-14 12:58] MED LIST changes: +ALBU2.5V5 INH; +GUAI600T33 PO; +PANT20 PO; +PROBIOTIC1 EA14 PO; +TUMS500 MG PO
[2023-12-14] MEDS ORDERED: Albuterol 2.5 MG/3 ML VIAL INH SCH (13:05)
[2023-12-14 13:21] LABS: pH Blood Venous 7.23 (7.34-7.37)
[2023-12-14 13:22] LABS: Base Excess Venous 7.8 mmol/L; Bicarbonate Venous 28.4 mmol/L (24.0-30.0); PCO2 Venous 85.7 mmHg (38-42)
[2023-12-14 13:23] LABS: BASOPHILS ABSOLUTE AUTO 0.04 K/mm3 (0.00-0.23); BASOPHILS PERCENT AUTO 0 % (0-2); EOSINOPHILS ABSOLUTE AUTO 0.14 K/mm3 (0.00-0.68); EOSINOPHILS PERCENT AUTO 1 % (0-6); Hematocrit 43.3 % (33.0-51.0); Hemoglobin 13.9 g/dL (11.5-16.0); IMMATURE GRAN ABSOLUTE AUTO 0.08 K/mm3 (0.00-0.10); IMMATURE GRAN PERCENT AUTO 0 % (0-1); LYMPHOCYTES ABSOLUTE AUTO 13.48 K/mm3 (0.84-5.20); LYMPHOCYTES PERCENT AUTO 61 % (21-46); MONOCYTES ABSOLUTE AUTO 1.42 K/mm3 (0.16-1.47); MONOCYTES PERCENT AUTO 6 % (4-13); Mean Corpuscular HGB 29.3 pg (26.0-34.0); Mean Corpuscular HGB Conc 32.1 g/dL (31.5-36.5); Mean Corpuscular Volume 91 fL (80-100); Mean Platelet Volume 10.6 fL (9.1-12.4); NEUTROPHILS ABSOLUTE AUTO 7.09 K/mm3 (1.96-9.15); NEUTROPHILS PERCENT AUTO 32 % (41-73); Platelet Count 233 K/mm3 (150-400); RDW Coefficient Variation 13.5 % (11.7-14.2); Red Blood Cell Count 4.74 M/mm3 (3.80-5.20); White Blood Cell Count 22.25 K/mm3 (4.00-11.30)
[2023-12-14 13:39] LABS: Albumin, Blood 4.2 g/dL (3.4-5.0); Albumin/Globulin Ratio 1.4 (0.8-1.8); Bilirubin, Total 0.5 mg/dL (0.1-1.0); Bun/Creatinine Ratio 24.3 (12.0-20.0); Calcium, Blood 9.5 mg/dL (8.5-10.1); Creatinine, Blood 0.62 mg/dL (0.40-1.00); Potassium, Blood 4.2 mmol/L (3.5-5.5); Total Protein, Blood 7.2 g/dL (6.4-8.2)
[2023-12-14] MEDS ORDERED: Albuterol 2.5 MG/3 ML VIAL INH PRN (15:05)
[2023-12-14] MEDS ORDERED: Ipratropium/Albuterol SulF 2.5-0.5MG/3 ML Amp INH SCH (15:05)
[2023-12-14] MEDS ORDERED: Acetaminophen 325 MG TABLET PO PRN (15:05)
[2023-12-14] MEDS ORDERED: HYDROcodone 10-APAP 325 TAB PO PRN (15:05)
[2023-12-14] MEDS ORDERED: Calcium Carbonate 500 MG Tab Chew PO PRN (15:10)
[2023-12-14 18:37] VITALS: BP 118/89
--- NOTE | 2023-12-14 18:44 | NUR ---
ARRIVAL TO PCU REPORT RECIEVED FROM ER NURSE ERICKA AT 1800. PT ARRIVED TO PCU AT 1820 VIA GURNEY AND ON V30 BIPAP. PT SLID TO HOSPITAL BED VIA SLIDE SHEET AND 3 STAFF MEMBERS. PT RECIEVED BED BATH UPON ARRIVAL AND BEDDING CHANGED. VITALS STABLE AT TIME OF ARRIVAL. PT ORIENTED TO ROOM AND CALL LIGHT. PT A/OX 4 AT TIME OF ARRIVAL AND ABLE TO EXPRESS NEEDS. PT SLIGHTLY DIFFICULT TO UNDERSTAND DUE TO THE BIPAP MACHINE. BED IN LOWEST POSITION. ALL LIGHT IN REACH. WILL FORWARD TO ONCOMING RN.
[2023-12-14 19:48] VITALS: BP 124/70
[2023-12-14] MEDS ORDERED: Apixaban 5 MG Tab PO SCH (21:00)
[2023-12-14] MEDS ORDERED: MethylPREDNISolone Sod Succ 40 MG VIAL IV SCH (21:00)
[2023-12-14] MEDS ORDERED: GuaiFENesin 600 MG TabCR PO SCH (21:00)
[2023-12-14 21:01] LABS: Adenovirus Not Detected (NOT DETECT); Coronavirus 229E Not Detected (NOT DETECT); Coronavirus HKU1 Not Detected (NOT DETECT); Coronavirus NL63 Not Detected (NOT DETECT)
[2023-12-14 21:02] LABS: Bordetella pertussis Not Detected (NOT DETECT); Chlamydophila pneumoniae Not Detected (NOT DETECT); Coronavirus OC43 Not Detected (NOT DETECT); Human Metapneumovirus Not Detected (NOT DETECT); Human Rhinovirus/Enterovirus Not Detected (NOT DETECT); Influenza A/2009-H1 Not Detected (NOT DETECT); Influenza A/H1 Not Detected (NOT DETECT); Influenza A/H3 Not Detected (NOT DETECT); Influenza B Not Detected (NOT DETECT); Mycoplasma pneumoniae Not Detected (NOT DETECT); Parainfluenza Virus 1 Not Detected (NOT DETECT); Parainfluenza Virus 2 Not Detected (NOT DETECT); Parainfluenza Virus 3 Not Detected (NOT DETECT); Parainfluenza Virus 4 Not Detected (NOT DETECT); Respiratory Syncytial Virus Not Detected (NOT DETECT); SARS-Cov-2 (COVID-19), BioFire Not Detected (NOT DETECT)
[2023-12-14 23:27] VITALS: BP 122/67
[2023-12-15 03:30] VITALS: BP 124/73
[2023-12-15 04:20] LABS: BASOPHILS PERCENT AUTO 0 % (0-2); EOSINOPHILS PERCENT AUTO 0 % (0-6); Hemoglobin 11.5 g/dL (11.5-16.0); IMMATURE GRAN ABSOLUTE AUTO 0.02 K/mm3 (0.00-0.10); IMMATURE GRAN PERCENT AUTO 0 % (0-1); LYMPHOCYTES ABSOLUTE AUTO 0.91 K/mm3 (0.84-5.20); LYMPHOCYTES PERCENT AUTO 14 % (21-46); MONOCYTES ABSOLUTE AUTO 0.24 K/mm3 (0.16-1.47); MONOCYTES PERCENT AUTO 4 % (4-13); Mean Corpuscular HGB Conc 31.9 g/dL (31.5-36.5); Mean Corpuscular Volume 91 fL (80-100); Mean Platelet Volume 11.1 fL (9.1-12.4); NEUTROPHILS PERCENT AUTO 82 % (41-73); Platelet Count 141 K/mm3 (150-400); RDW Coefficient Variation 13.3 % (11.7-14.2); Red Blood Cell Count 3.97 M/mm3 (3.80-5.20); White Blood Cell Count 6.57 K/mm3 (4.00-11.30)
[2023-12-15 04:37] LABS: Calcium, Blood 9.3 mg/dL (8.5-10.1); Creatinine, Blood 0.52 mg/dL (0.40-1.00); Potassium, Blood 4.4 mmol/L (3.5-5.5)
--- NOTE | 2023-12-15 05:43 | NUR ---
SHIFT SUMMARY PT A&Ox4, CALLS AND COMMUNICATES NEEDS APPROPRIATELY. SpO2> 92% ON BASELINE 3L VIA NC AND BIPAP WHILE SLEEPING. DENIES SOB. BP STABLE, SINUS 70's, DENIES CP/PRESSURE. CONTINENT OF URINE, NO BM THIS SHIFT, SBA TO BSC. PT WITH C/O NECK/HEAD PAIN, MANAGED PER EMAR. NO OTHER EVENTS, WILL REPORT TO ONCOMING RN.
[2023-12-15 05:47] LABS: PCO2 Arterial 61.8 mmHg (35-45); pH Blood Arterial 7.39 (7.35-7.45)
[2023-12-15 05:48] LABS: PO2 Arterial 126 mmHg (80-100)
[2023-12-15] MEDS ORDERED: Pantoprazole Sodium 20 MG Tab PO SCH (06:00)
[2023-12-15 07:34] VITALS: BP 127/62
[2023-12-15] MEDS ORDERED: dilTIAZem HCL 120 MG CAP.CD PO SCH (09:00)
[2023-12-15] MEDS ORDERED: Losartan Potassium 50 MG Tab PO SCH (09:00)
[2023-12-15] MEDS ORDERED: DULoxetine HCL 60 MG Capsule DR PO SCH (09:00)
[2023-12-15] MEDS ORDERED: Prednisone10 MG PO (10:31)
--- NOTE | 2023-12-15 10:59 | NUR ---
Pt. is awake in bed and welcomes my visit. Pt. is pleasant and displays evidence preparing to discharge. Staff removed pts. IV during our visit. Facilitaed a life review and re-established rapport. Considered matters of salma and belief as well as her family. Pt. verbalized an appreciation for chaplain Crescencio Schmitz's reflection this morning. Prayed with Pt. in a very menaingful way. Pt. verbalized gratitude for the spiritual care visit.
--- NOTE | 2023-12-15 12:15 | NUR ---
DISCHARGE SUMMARY DISCHARGE PAPERWORK WITH PT WAS PERFORMED AT 1205 AND PT LEFT AT 1213. PT WAS ABLE TO AMBULATE FROM BED TO THE BATHROOM TO THE WHEELCHAIR WITH MINIMAL ASSIST, TOLERATED WELL. PT WAS ON 3L NASAL CANNULA DURING DISCHARGE. PTS PERSONAL BELONGINGS WITH PT DURING DISCHARGE. DISCHARGE PACKET WITH PATIENT AT TIME OF DICHARGE.
--- NOTE | 2023-12-15 12:53 | NUR ---
this rn reviewed student rn's notes and assessments and agrees with student.
== END 2023-12-15 12:24 | disposition home or self-care (01) ==
LOC: ER 12:58 → MEDS 12:59 → PCU 18:20
PROVIDERS: Emergency Medicine; Family Medicine; ADMIT Internal Medicine
DX: J96.22 Acute and chronic respiratory failure with hypercapnia (principal); J96.21 Acute and chronic respiratory failure with hypoxia; J44.1 Chronic obstructive pulmonary disease with (acute) exacerbation; J84.89 Other specified interstitial pulmonary diseases; I48.0 Paroxysmal atrial fibrillation; F41.9 Anxiety disorder, unspecified; E78.5 Hyperlipidemia, unspecified; Z79.01 Long term (current) use of anticoagulants; Z99.89 Dependence on other enabling machines and devices; Z88.8 Allergy status to other drugs, medicaments and biological substances; Z79.899 Other long term (current) drug therapy; Z87.891 Personal history of nicotine dependence
CPT/HCPCS: 0202U; 36415; 36600; 71045; 80048; 80053; 82803; 84484; 85025; 93005; 93010; 94640; 94660; 94664; 94762; 96374; 96376; 99285-25; A9270; C9113; G0378; J2920

== ENCOUNTER 2023-12-23 | Inpatient (IN) | payer MEDICARE, OTHER ==
[~2023-12-23] VITALS: Ht 162.6 cm; Wt 67.9 kg
[2023-12-23] VITALS (8 sets, daily range): BP systolic 88–150; BP diastolic 51–80
[2023-12-23] MEDS ORDERED: Ondansetron HCl 2 MG / ML 2ML Vial ONE (00:04)
[2023-12-23] MEDS ORDERED: Mag Sulfate 1 GM/D5% 100ML 100 ML IV ONE (00:10)
[2023-12-23] MEDS ORDERED: NS 1,000 ML IV SCH (00:10)
[2023-12-23] MEDS ORDERED: Albuterol 2.5 MG/3 ML VIAL INH SCH (00:10)
[2023-12-23] MEDS ORDERED: Ondansetron HCl 2 MG / ML 2ML Vial IV ONE (00:20)
[2023-12-23 00:21] LABS: PCO2 Arterial 69.6 mmHg (35-45); PO2 Arterial 111 mmHg (80-100); pH Blood Arterial 7.33 (7.35-7.45)
[2023-12-23 00:28] LABS: Hematocrit 42.9 % (33.0-51.0); Hemoglobin 13.6 g/dL (11.5-16.0); Mean Corpuscular HGB 29.2 pg (26.0-34.0); Mean Corpuscular HGB Conc 31.7 g/dL (31.5-36.5); Mean Corpuscular Volume 92 fL (80-100); Mean Platelet Volume 10.2 fL (9.1-12.4); Platelet Count 220 K/mm3 (150-400); RDW Coefficient Variation 13.6 % (11.7-14.2); RDW Standard Deviation 46.6 fL (35.1-46.3); Red Blood Cell Count 4.66 M/mm3 (3.80-5.20)
[2023-12-23 01:10] LABS: Albumin/Globulin Ratio 1.2 (0.8-1.8); Bilirubin, Total 1.5 mg/dL (0.1-1.0); Bun/Creatinine Ratio 37.2 (12.0-20.0); Calcium, Blood 9.6 mg/dL (8.5-10.1); Creatinine, Blood 0.57 mg/dL (0.40-1.00); Globulin, Blood 3.3 g/dL (2.2-4.0); Potassium, Blood 4.5 mmol/L (3.5-5.5); Total Protein, Blood 7.3 g/dL (6.4-8.2)
[2023-12-23 02:56] LABS: BASOPHILS PERCENT MAN 0 % (0-2); EOSINOPHILS PERCENT MAN 2 % (0-6); LYMPHOCYTES ABSOLUTE MAN 7.67 K/mm3 (0.84-5.20); LYMPHOCYTES PERCENT MAN 38 % (21-46); MONOCYTES PERCENT MAN 4 % (4-13); NEUTROPHILS ABSOLUTE MAN 11.31 K/mm3 (1.96-9.15); SEG NEUTROPHILS PERCENT MAN 56 % (41-73); TOTAL CELLS COUNTED 100
[2023-12-23] MEDS ORDERED: Ondansetron HCl 2 MG / ML 2ML Vial IV PRN (03:00)
[2023-12-23] MEDS ORDERED: Ipratropium/Albuterol SulF 2.5-0.5MG/3 ML Amp INH PRN (03:05)
[2023-12-23 03:25] LABS: International Normalized Ratio 0.93
[2023-12-23] MEDS ORDERED: Azithromycin 500 MG in NS 250 ML IV SCH (04:00)
[2023-12-23] MEDS ORDERED: NS 250 ML IV PRN (04:45)
[2023-12-23 04:52] LABS: Influenza A, PCR NEGATIVE (NEGATIVE); Influenza B, PCR NEGATIVE (NEGATIVE); Resp Syncytial Virus, PCR NEGATIVE (NEGATIVE); SARS-Cov-2 (COVID-19) PCR, MMC NEGATIVE (NEGATIVE)
[2023-12-23 04:59] LABS: PCO2 Venous 66.7 mmHg (38-42); pH Blood Venous 7.35 (7.34-7.37)
[2023-12-23 05:00] LABS: Base Excess Venous 10.9 mmol/L; Bicarbonate Venous 31.5 mmol/L (24.0-30.0)
[2023-12-23 05:00] LABS: BASOPHILS ABSOLUTE AUTO 0.01 K/mm3 (0.00-0.23); BASOPHILS PERCENT AUTO 0 % (0-2); EOSINOPHILS ABSOLUTE AUTO 0.01 K/mm3 (0.00-0.68); EOSINOPHILS PERCENT AUTO 0 % (0-6); Hematocrit 37.6 % (33.0-51.0); Hemoglobin 12.1 g/dL (11.5-16.0); IMMATURE GRAN ABSOLUTE AUTO 0.04 K/mm3 (0.00-0.10); IMMATURE GRAN PERCENT AUTO 0 % (0-1); LYMPHOCYTES ABSOLUTE AUTO 0.25 K/mm3 (0.84-5.20); LYMPHOCYTES PERCENT AUTO 2 % (21-46); MONOCYTES PERCENT AUTO 1 % (4-13); Mean Corpuscular HGB 29.7 pg (26.0-34.0); Mean Corpuscular HGB Conc 32.2 g/dL (31.5-36.5); Mean Corpuscular Volume 92 fL (80-100); Mean Platelet Volume 10.4 fL (9.1-12.4); NEUTROPHILS ABSOLUTE AUTO 10.46 K/mm3 (1.96-9.15); NEUTROPHILS PERCENT AUTO 96 % (41-73); Platelet Count 153 K/mm3 (150-400); RDW Coefficient Variation 13.4 % (11.7-14.2); RDW Standard Deviation 46.2 fL (35.1-46.3); Red Blood Cell Count 4.08 M/mm3 (3.80-5.20); White Blood Cell Count 10.87 K/mm3 (4.00-11.30)
[2023-12-23 05:32] LABS: Albumin, Blood 3.5 g/dL (3.4-5.0); Albumin/Globulin Ratio 1.2 (0.8-1.8); Calcium, Blood 9.1 mg/dL (8.5-10.1); Creatinine, Blood 0.66 mg/dL (0.40-1.00); Globulin, Blood 2.8 g/dL (2.2-4.0); Potassium, Blood 4.4 mmol/L (3.5-5.5); Total Protein, Blood 6.3 g/dL (6.4-8.2)
--- NOTE | 2023-12-23 05:49 | NUR ---
ASSUMPTION OF CARE: PT ARRIVED TO PCU FROM ER ON GURNY AND TRANSFERED VIA SBA. SHE IS A/OX4 AND ABLE TO ANSWER QUESTIONS APPROPRIATELY AND MAKE HER NEEDS KNOWN. SHE IS CONTINENT AND AMBULATED TO THE BATHROOM WITHOUT DIFFICULTY. SHE IS MAINTAINING SPO2 >90% ON 2L NC WHEN AWAKE. SHE WEARS A BIPAP (SEE RT'S NOTE) WHEN SLEEPING. SHE DENIES SOB WHEN SHE IS WEARING HER O2. HER LUNG BARCLAY ARE COARSE WITH AUDIBLE WHEEZING T/0. SHE IS ON TELE IN NSR WITH NO CHEST PAIN OR PRESSURE. SHE HAS SCATTERED BRUISING UPON ADMISSION. PT DENIES NEEDS AT THIS TIME, WILL CONTINUE TO MONITOR AND REPORT TO ONCOMING RN
[2023-12-23] MEDS ORDERED: MethylPREDNISolone Sod Succ 125 MG Vial IV SCH (06:00)
[2023-12-23 07:34] LABS: Source, Urine Clean Catch
[2023-12-23 07:37] LABS: Bilirubin, Urine Neg (Neg); Blood, Urine 3+ (Neg); Glucose Qualitative, Urine Neg (Neg); Ketones, Urine 1+ (Neg); Leukocyte Esterase, Urine Neg (Neg); Nitrite, Urine Neg (Neg); Protein, Urine Neg (Neg); Specific Gravity, Urine 1.015 (1.003-1.022); Urobilinogen, Urine NORM (Normal)
[2023-12-23 08:02] LABS: PCO2 Venous 60.8 mmHg (38-42); pH Blood Venous 7.39 (7.34-7.37)
[2023-12-23 08:03] LABS: Base Excess Venous 11.7 mmol/L; Bicarbonate Venous 33.6 mmol/L (24.0-30.0)
[2023-12-23 08:13] LABS: U Amphetamine Screen Not Detected; U Buprenorphine Screen DETECTED; U Methamphetamine Screen Not Detected
[2023-12-23 08:14] LABS: Appearance, Urine Clear (Clear); Color, Urine Yellow (P-Yellow); U Barbituate Screen Not Detected; U Benzodiazapine Screen Not Detected; U Cannabinoids Screen Not Detected; U Cocaine Screen Not Detected; U Methadone Screen Not Detected; U Opiates Screen Not Detected; U Oxycodone Screen Not Detected; U Phencyclidine Screen Not Detected
[2023-12-23 08:15] LABS: Bacteria Few /hpf; Squamous Epithelial Cells Few /hpf (Few); White Blood Cells, Urine 0-2 /hpf (0-5)
[2023-12-23] MEDS ORDERED: Enoxaparin 40 MG/0.4 ML SYR SC SCH (09:00)
[2023-12-23] MEDS ORDERED: Apixaban 5 MG Tab PO SCH (09:00)
--- NOTE | 2023-12-23 10:35 | NUR ---
AM Note Pt alert and oriented to person, place, date/month, and president. She denies any chest pain/pressure, dizziness, headache, or palpitations. On tele sinus rhythm in the 70's-80's. Soft blood pressures. Lung sounds coarse with expiratory wheezes in upper lobes. She denies any SOB. O2 saturation in 90's on BIPAP FIO2 35%. Urine culture sent to lab. Food at bedside. Sat patient up to eat and put on 4L via NC. Will continue to monitor.
--- NOTE | 2023-12-23 16:44 | NUR ---
Shift Summary Patient alert and oriented to person place, time, situation. Patient lying in bed. Had one low blood pressure reading this afternoon but raised a few hours later. Contacted pts roomate per patient to ask about her purse. Olvin also stated pt was using her CPAP at home and will bring it in to compare settings. On tele sinus rhythm in the 70's. VSS. No acute changes. Will continue to monitor.
--- NOTE | 2023-12-23 16:55 | NUR ---
I have have reviewed Keeley's documentation and am in agreement.
--- NOTE | 2023-12-23 17:42 | NUR ---
PT'S ROOMATE STS THAT PT'S PURSE WAS GIVEN TO EMS LAST NIGHT WHEN THEY RETRIEVED HER FROM HER HOME. PURSE DID NOT MAKE IT TO THE ER, I CONTACTED [facility] THEY ALSO DID NOT FIND A PURSE IN THIR AMBULANCES OR IN THEIR LOST AND FOUND. PT AWOKE REPORTS THAT SHE FEELS "DROWSY" THEN REQUESTS "HYDROCODONE 10MG". PT HAS BEEN DROWSY AND ASLEEP T/O THE DAY. PREVIOUS RN REPORTS THAT PT WAS ALTERED THIS AM. IT WAS NOTED NOTED THAT PT HAD BUPENEPHRINE IN HER TOXICOLOGY SCREEN, SHE IS NOT PRESCRIBED THIS MEDICATION, SHE DOES NOT HAVE ANY OPIATES ORDERED AT THIS TIME. SHE IS CONTINUING TO REPORT DROWSINESS SHE WAS EDUCATED ABOUT WHY OPIATES WOULD NOT BE AVDISED AT THIS TIME, SHE AGRESS ABOUT THIS
--- NOTE | 2023-12-23 22:11 | NUR ---
PT ADMITED TO TAKING BUPRENORPHINE FROM A FRIEND BECAUSE SHE WAS TOLD "IT WILL MAKE YOU FEEL BETTER." PT EDUCATED ON THE CONCERN OF TAKING MEDICATIONS SHE HAS NOT BEEN PRESCRIBED. PT BEGAN TO CRY STATING SHE MISSED HER AND WANTS TO GO SEE HIM. THIS RN ASKED IF TAKING THE BUPRENORPHINE WAS AN ATTEMPT TO END HER LIFE TO GO SEE HER . PT STATED "NO, IT WAS NOT A SUICIDE ATTEMPT." THIS RN CONFIRMED A SECOND TIME THAT SHE DOES NOT HAVE SUICIDAL IDEALATION. PT DENIED. WILL CONTINUE TO MONITOR CLOSELY. PT NOW RESTING ON BIPAP WITH NO CONCERNS. CALL LIGHT IN REACH AND BED ALARM ON FOR PT SAFETY
[2023-12-24 03:22] VITALS: BP 141/73
--- NOTE | 2023-12-24 05:07 | NUR ---
PT A/OX4 AND COOPERATIVE WITH CARE. SHE IS CONTINENT AND USES THE BEDSIDE COMMODE WITH 1 PERSON ASSIST. HER ROOMMATE CAME TO VISIT TO BRING PT'S HOME CPAP. RT SET UP MACHINE, PT HAS WORN ALL NIGHT WITH SPO2 >90%. SHE IS ON TELE IN NSR IN THE 80S, DENIES CHEST PAIN/PRESSURE. NO EVENTS OVERNIGHT. PROGRESSIVE ASSEMBLER AND FITTER BROUGHT PT'S BELONGINGS THAT WERE LEFT IN AMBULANCE. PT RESTING NOW WITH EVEN UNLABORED RESPIRATIONS. WILL CONTINUE TO MONITOR AND REPORT TO ONCOMING RN
[2023-12-24] MEDS ORDERED: Pantoprazole Sodium 40 MG Tab PO SCH (06:00)
[2023-12-24 08:26] VITALS: BP 148/69
--- NOTE | 2023-12-24 08:31 | NUR ---
ASSUMPTION OF CARE: PATIENT IS AWAKRE ALERT AND ORIENTED X 4, ABLE TO MAKE NEEDS KNOWN AT THIS TIME. HOSIPITALIST ROUNDED, MED NO TELE, AND PLAN FOR DISCHARGE TOMORROW. PATIENT AGREEABLE TO PLAN. DENIES CHEST PAIN PRESSURE OR INCREASED SOB. RESTING WITH BED ALARM ON FOR SAFETY, OVERESTIMATES ABILITIES AT TIMES, EDUCATED. PATIENT ON HOME BASELINE O2 WHEN NOT ON HOME IVAP SYSTEM. O2 BLEED IN. PATIENT OR THIS STENCIL INSPECTOR WITH ANY ACUTE CONCERNS.
[2023-12-24] MEDS ORDERED: DULoxetine HCL 60 MG Capsule DR PO SCH (12:55)
[2023-12-24] MEDS ORDERED: Losartan Potassium 50 MG Tab PO SCH (12:55)
[2023-12-24] MEDS ORDERED: Nicotine 14 MG PATCH TOP SCH (12:55)
[2023-12-24] MEDS ORDERED: dilTIAZem HCL 120 MG CAP.CD PO SCH (12:55)
[2023-12-24] MEDS ORDERED: MethylPREDNISolone Sod Succ 125 MG Vial IV SCH (16:00)
[2023-12-24 19:30] VITALS: BP 138/78
--- NOTE | 2023-12-24 20:55 | NUR ---
PT EDUCATED ON THE RISK OF ASPIRATION WHEN CHEWING GUM WHILE ON A CPAP/BIPAP. PT STATES UNDERSTANDING AND SAYS "I WILL DO IT WHEN I GET HOME." PT REMINDED OF RISK
[2023-12-25 03:59] VITALS: BP 137/64
--- NOTE | 2023-12-25 04:44 | NUR ---
SHIFT NOTE: PT A/OX4 USES THE CALL LIGHT TO MAKE NEEDS KNOWN. PT SPO2 HAS REMAINED >90% ON 3L NC OR ON HOME CPAP WITH BLEED IN. ON TELE IN NSR IN THE 60-70S. HR JUMPED TO 160S VERY BRIEFLY AND RETURNED TO BASELINE WITH NO INTERVENTION. PT ASYMPTOMATIC. DENIES CHEST PAIN/PRESSURE. PLAN FOR PT TO DISCHARGE HOME TODAY. PT STATES SHE NEEDS TO GO ON HOSPICE BUT IS TOO TIRED TO MAKE THAT DECISION. WILL CONTINUE TO MONITOR AND REPORT TO ONCOMING RN.
[2023-12-25 07:26] VITALS: BP 124/70
[2023-12-25] MEDS ORDERED: DULoxetine HCL 60 MG Capsule DR PO SCH (09:00)
[2023-12-25] MEDS ORDERED: dilTIAZem HCL 120 MG CAP.CD PO SCH (09:00)
[2023-12-25] MEDS ORDERED: Nicotine 14 MG PATCH TOP SCH (09:00)
[2023-12-25] MEDS ORDERED: Losartan Potassium 50 MG Tab PO SCH (09:00)
--- NOTE | 2023-12-25 13:27 | NUR ---
DISCHARGE PT LEFT VIA WHEELCHAIR. ALL INSTRUCTIONS GONE OVER WITH PATIENT. SHE REPORTED SHORTNESS OF BREATH WAS AT HER BASELINE AND THAT SHE FELT MUCH BETTER THAN PREVIOUS. HOME TRILOGY MACHINE AND HOME OXYGEN BROUGHT BY HER ROOMMATE FOR DISCHARGE. PT PLANS ON FOLLOWING UP WITH PCP UPON DISCHARGE AND GO TO HER EDGE [facility]ER APPOINTMENT. PT DENIED FURTHER QUESTIONS AND EDUCATED ON NON SMOKING AT THIS TIME. ALL BELONINGS WITH PATIENT.
[2023-12-26] MEDS ORDERED: AMLODIPINE BESY10 MG PO (14:30)
[2023-12-26] MEDS ORDERED: Prednisone10 MG (14:31)
== END 2023-12-25 13:19 | disposition home or self-care (01) | DRG 189 ==
LOC: ER → PCU 00:01
PROVIDERS: Emergency Medicine; Family Medicine; ADMIT Internal Medicine
DX: J96.21 Acute and chronic respiratory failure with hypoxia (principal); E87.29 Other acidosis; J44.1 Chronic obstructive pulmonary disease with (acute) exacerbation; R65.10 Systemic inflammatory response syndrome (SIRS) of non-infectious origin without acute organ dysfunction; E87.1 Hypo-osmolality and hyponatremia; J96.22 Acute and chronic respiratory failure with hypercapnia; F41.9 Anxiety disorder, unspecified; G89.4 Chronic pain syndrome; F32.A Depression, unspecified; E78.5 Hyperlipidemia, unspecified; I10 Essential (primary) hypertension; I48.0 Paroxysmal atrial fibrillation; T38.0X5A Adverse effect of glucocorticoids and synthetic analogues, initial encounter; G47.30 Sleep apnea, unspecified; Z88.8 Allergy status to other drugs, medicaments and biological substances; Z79.01 Long term (current) use of anticoagulants; Z79.899 Other long term (current) drug therapy; Z99.81 Dependence on supplemental oxygen; M79.7 Fibromyalgia; E66.9 Obesity, unspecified; F11.90 Opioid use, unspecified, uncomplicated; Z98.51 Tubal ligation status; Z90.710 Acquired absence of both cervix and uterus; Z87.891 Personal history of nicotine dependence; Z71.6 Tobacco abuse counseling; Z68.26 Body mass index [BMI] 26.0-26.9, adult
CPT/HCPCS: 0241U; 36415; 36600; 71045; 80053; 81001; 82803; 83880; 85025; 85610; 93005; 93010; 94640; 94644; 94660; 94664; 94762; 96365; 96375; 99285-25; A9270; J0456; J2405; J2930; J3475; J7030; J7050

== ENCOUNTER 2023-12-26 14:16 | Inpatient (IN) | payer MEDICARE, OTHER ==
[~2023-12-26] VITALS: Ht 160 cm; Wt 67.3 kg
[2023-12-26] MEDS ORDERED: Albuterol 2.5 MG/3 ML VIAL INH SCH (14:20)
[2023-12-26] MEDS ORDERED: Mag Sulfate 1 GM/D5% 100ML 100 ML IV ONE (14:25)
[2023-12-26] MEDS ORDERED: AMLODIPINE BESY10 MG PO (14:30)
[2023-12-26] MEDS ORDERED: Prednisone10 MG (14:31)
[2023-12-26 14:42] LABS: BASOPHILS ABSOLUTE AUTO 0.02 K/mm3 (0.00-0.23); BASOPHILS PERCENT AUTO 0 % (0-2); EOSINOPHILS PERCENT AUTO 0 % (0-6); Hematocrit 44.1 % (33.0-51.0); Hemoglobin 13.9 g/dL (11.5-16.0); IMMATURE GRAN ABSOLUTE AUTO 0.08 K/mm3 (0.00-0.10); IMMATURE GRAN PERCENT AUTO 0 % (0-1); LYMPHOCYTES ABSOLUTE AUTO 5.06 K/mm3 (0.84-5.20); LYMPHOCYTES PERCENT AUTO 28 % (21-46); MONOCYTES ABSOLUTE AUTO 0.91 K/mm3 (0.16-1.47); MONOCYTES PERCENT AUTO 5 % (4-13); Mean Corpuscular HGB 28.8 pg (26.0-34.0); Mean Corpuscular HGB Conc 31.5 g/dL (31.5-36.5); Mean Corpuscular Volume 92 fL (80-100); Mean Platelet Volume 10.5 fL (9.1-12.4); NEUTROPHILS ABSOLUTE AUTO 12.16 K/mm3 (1.96-9.15); NEUTROPHILS PERCENT AUTO 67 % (41-73); Platelet Count 258 K/mm3 (150-400); RDW Coefficient Variation 13.5 % (11.7-14.2); RDW Standard Deviation 46.2 fL (35.1-46.3); Red Blood Cell Count 4.82 M/mm3 (3.80-5.20); White Blood Cell Count 18.23 K/mm3 (4.00-11.30)
[2023-12-26 15:02] LABS: Albumin, Blood 4.2 g/dL (3.4-5.0); Albumin/Globulin Ratio 1.2 (0.8-1.8); Bilirubin, Total 0.9 mg/dL (0.1-1.0); Bun/Creatinine Ratio 51.9 (12.0-20.0); Calcium, Blood 10.4 mg/dL (8.5-10.1); Creatinine, Blood 0.58 mg/dL (0.40-1.00); Globulin, Blood 3.4 g/dL (2.2-4.0); Potassium, Blood 4.5 mmol/L (3.5-5.5); Total Protein, Blood 7.6 g/dL (6.4-8.2)
[2023-12-26 15:20] LABS: Influenza A, PCR NEGATIVE (NEGATIVE); Influenza B, PCR NEGATIVE (NEGATIVE); Resp Syncytial Virus, PCR NEGATIVE (NEGATIVE); SARS-Cov-2 (COVID-19) PCR, MMC NEGATIVE (NEGATIVE)
[2023-12-26] MEDS ORDERED: Ipratropium/Albuterol SulF 2.5-0.5MG/3 ML Amp INH SCH (16:55)
[2023-12-26] MEDS ORDERED: Albuterol 2.5 MG/3 ML VIAL INH PRN (16:55)
[2023-12-26] MEDS ORDERED: Acetaminophen 325 MG TABLET PO PRN (16:55)
[2023-12-26] MEDS ORDERED: NS 1,000 ML IV SCH (17:00)
[2023-12-26] MEDS ORDERED: Ondansetron HCl 2 MG / ML 2ML Vial IV PRN (17:00)
[2023-12-26 17:55] VITALS: BP 151/98
[2023-12-26 17:56] LABS: Base Excess Venous 11.6 mmol/L; Bicarbonate Venous 32.3 mmol/L (24.0-30.0); PCO2 Venous 66 mmHg (38-42); pH Blood Venous 7.36 (7.34-7.37)
[2023-12-26] MEDS ORDERED: Azithromycin 500 MG in NS 250 ML IV SCH (18:00)
--- NOTE | 2023-12-26 18:42 | NUR ---
PT ARRIVED TO THE ROOM AT APPROX 1750. PT TRANSFERRED TO PCU BED VIA SLIDER SHEET PER PT'S REQUESTS. THEN EVENTUALLY PT REQUESTED TO USE BEDSIDE COMMODE PT ABLE TO AND TRANSFER TO [facility] SBA. PT VERY SHORT OF BREATH WITH EXERTION ON 4L OF O2 UPON ARRIVAL BIPAP SET UP AT THE BEDSIDE. VITALS HRR ST 90-140'S, SBP 150'S, SATS ABOVE 95% ON 4L OF O2, AFEBRILE. PT ABLE TO ANSWER QUESTIONS APPROPRIATELY SLOW TO RESPOND DUE TO RESPIRATORY ISSUES. PT DENIES ANY CHEST PAIN/PRESSURE. TOLERATED DIET NO ISSUES. PT NOW RESTING IN BED WITH CALL LIGHTS IN REACH. NO OTHER ISSUES AT THIS TIME WILL REPORT TO ONCOMING SHIFT
[2023-12-26 20:11] VITALS: BP 146/86
[2023-12-26 20:41] VITALS: BP 121/88
[2023-12-26] MEDS ORDERED: Apixaban 5 MG Tab PO SCH (21:00)
[2023-12-26] MEDS ORDERED: MethylPREDNISolone Sod Succ 125 MG Vial IV SCH (21:00)
[2023-12-26] MEDS ORDERED: Diltiazem HCl 5 MG / ML 5ML Vial IV ONE (21:25)
[2023-12-26] MEDS ORDERED: Diltiazem HCl 5 MG / ML 5ML Vial IV PRN (21:25)
[2023-12-26 21:49] VITALS: BP 131/81
[2023-12-26 22:00] VITALS: BP 120/78
[2023-12-27] VITALS (8 sets, daily range): BP systolic 101–155; BP diastolic 72–104
--- NOTE | 2023-12-27 02:13 | NUR ---
ASSUMPTION OF CARE AFTER RECEIVING REPORT FROM RENETTA RN, THIS RN ASSUMED CARE AT APPROX 1915. PATIENT ALERT AND ORIENTED X4. COMMUNICATES NEEDS EFFECTIVELY. TELEMETRY SHOWING AFIB 130s-140s AT REST. PATIENT HAS A HX OF AFIB AND TAKES 120MG PO CARDIZEM. PATIENT UNABLE TO RECALL IF SHE TOOK HER MEDICATION THIS MORNING. PATIENT ASYMPTOMATIC OF RATE INCREASE. DENIES CHEST PAIN, PRESSURE. BP STABLE. MD CONTACTED. RECEIVED ORDER FOR ONE TIME ORDER OF 15MG CARDIZEM IV PUSH AND FOR CARDIZEM 10MG IV PUSH Q6 PRN FOR HEART RATE >120. PATIENT's HEART RATE CURRENTLY 100s-120s FOLLOWING 15MG IV CARDIZEM ADMINISTRATION. PATIENT ON BASELINE 4L VIA NC, SATs >90%. BIPAP 14/7 35% AT BEDSIDE FOR PRN USE. AFTER SLEEPING WITH BIPAP MASK FOR AN EXTENDED PERIOD OF TIME, PATIENT REPORTED 8/10 THROAT DRYNESS, PAIN. NO ABNORMAL REDNESS OR LESIONS NOTED. PO TYLENOL ADMINISTERED AT PATIENT REQUEST. HOT TEA AND HONEY PROVIDED. PATIENT REPORTING RELIEF. PATIENT IS A SBA TO [facility] FOR CORD, DEVICE MANAGEMENT. REPOSITIONS HERSELF INDEPENDENTLY IN BED. CALL LIGHT IN REACH.
--- NOTE | 2023-12-27 05:16 | NUR ---
SHIFT SUMMARY PATIENT CURRENTLY SLEEPING WITH BIPAP MASK IN PLACE. TELEMETRY CURRENTLY SHOWING AFIB 110s-120s. AROUND 0300, PATIENT's HEART RATE BEGAN TRENDING UP TO 120s-130s WITH INCREASES TO 140s. 10MG PRN CARDIZEM IV PUSH ADMINISTERED PER EMAR. PATIENT REMAINS ASYMPTOMATIC WITH INCREASES. DENIES CHEST PAIN, PRESSURE. BP STABLE. AROUND 0315, WHILE USING BEDSIDE COMMODE, WITH BASELINE 4L VIA NC IN PLACE, PATIENT BECAME SHORT OF BREATH. REPORTING DIFFICULTY BREATHING. SATs REMAIN >90%. RR 24-30. BIPAP MASK PLACED. RT ADMINISTERED BREATHING TREATMENT. SHORTNESS OF BREATH IMPROVED, RR 20-22. VOIDING. NO BM THIS SHIFT. CALL LIGHT IN REACH. WILL CONTINUE TO MONITOR AND REPORT TO ONCOMING RN.
[2023-12-27 05:59] LABS: Hematocrit 35.7 % (33.0-51.0); Hemoglobin 11.6 g/dL (11.5-16.0); Mean Corpuscular HGB 29.2 pg (26.0-34.0); Mean Corpuscular HGB Conc 32.5 g/dL (31.5-36.5); Mean Corpuscular Volume 90 fL (80-100); Mean Platelet Volume 11.3 fL (9.1-12.4); Platelet Count 145 K/mm3 (150-400); RDW Coefficient Variation 13.5 % (11.7-14.2); RDW Standard Deviation 44.6 fL (35.1-46.3); Red Blood Cell Count 3.97 M/mm3 (3.80-5.20); White Blood Cell Count 9.01 K/mm3 (4.00-11.30)
[2023-12-27] MEDS ORDERED: Pantoprazole Sodium 20 MG Tab PO SCH (06:00)
--- NOTE | 2023-12-27 08:29 | NUR ---
AM SUMMARY PER NURSE LASTNIGHT AND TELE TODAY, PATIENT IS IN AFIB. PT SEEMED VERY ANXIOUS THIS MORNING WHILE I WAS GETTING HER VITALS. SHE REQUESTED TO GO ON HER CPAP MACHINE BECAUSE SHE WANTED TO GET ON THE COMMODE. SPO2 REMAINED IN >90'S WHILE AMBULATING AND WHILE SITTING UP IN BED. RT PLACED THE PATIENT BACK ON CPAP. NURSE JACKSON IS GOING TO CALL HER DOCTOR TO REQUEST SOMETHING FOR ANXIETY. TRANSITIONED HER BACK TO NASAL CANNULA TO EAT BREAKFAST. PT WAS ABLE TO EAT ABOUT 40% OF PLATE BEFORE REQUESTING SHE GO BACK ON CPAP. PATIENT DENIES CHEST PAIN BUT DOES HAVE COMPLAINTS OF FEELING VERY SHORT OF BREATH ALL MORNING. PT ASKED NURSE JACKSON AND I, IF WE WOULD CONTACT HER FAMILY IF IT'S TIME. PT CALL LIGHT IS WITHIN REACH, WILL CONTINUE TO MONITOR AND CONTACT DOCTOR ABOUT MED FOR ANXIETY.
[2023-12-27] MEDS ORDERED: dilTIAZem HCL 120 MG CAP.CD PO SCH (09:00)
[2023-12-27] MEDS ORDERED: Losartan Potassium 50 MG Tab PO SCH (09:00)
--- NOTE | 2023-12-27 18:06 | NUR ---
SHIFT SUMMARY PATIENT WAS ON BIPAP MOST OF THE DAY WITH 30% FIO2. RT DID GIVE HER A BREATHING TREATMENT AROUND 1130. PATIENT WAS COMPLAINING OF SHORTNESS OF BREATH ALL DAY WHEN WE PLACED HER ON NASAL CANNULA FOR MEAL TIMES. SHE HAS BEEN SLEEPING A LOT TODAY WITH BIPAP MACHINE ON. PATIENT RESPONDS TO VERBAL STIMULI. RT SUGGEST ANXIETY MEDICATION THIS MORNING FOR PT IN RESPIRATORY DISTRESS, NURSE RENETTA CONTACTED HER DOCTOR. NO ORDER FOR ANXIETY AT THIS TIME. PT WAS ABLE TO SELF SOOTHE BY LISTENING TO HER TELEVISION SHOW ON HER PHONE. VITALS WERE WITHIN NORMAL LIMITS WITH A SBP 100-130 AND THEN DBP 70-90. PULSE ELEVATED BEING IN AFIB, HAS BEEN AROUND 115-130. SPO2 REMAINED >90'S ON BIPAP AND ON NASAL CANNULA. CALL LIGHT IS WITHIN REACH, WILL REPORT TO ONCOMING NURSE.
--- NOTE | 2023-12-27 21:45 | NUR ---
PT IS ALERT AND ORIENTED X 4, COOPERATIVE WITH CARE AND ABLE TO MAKE NEEDS KNOWN. PT IS ON BIPAP 14/ 30% AND MAINTAINING 02 SATURATION ABOVE 92%, SHE DENIES SOB AT THIS TIME. PT TOOK BREAK FROM BIPAP AT BEGINNINF OF SHIFT TO TAKE HER MEDS AND HAVE A SNACK. PT WAS ON 4L NC DURING BREAK WHICH IS HER BASELINE, PT TOLERATED WELL. PT'S HR AFIB 110'S-160'S, PRN IV CARDIZEM WAS GIVEN FOR HR >120 PER EMAR AT BEGINNIN OF SHIFT. PT DENIES CHEST PAIN/PRESSURE. BP STABLE. PT IS CONTINENT OF BLADDER AND BOWELS. IV TO L AC IS PATENT/FLUSHED/SALINE LOCKED. PT BACK ON BIPAP AND RESTING IN BED. CALL LIGHT WITHIN REACH.
[2023-12-28] VITALS (7 sets, daily range): BP systolic 129–157; BP diastolic 70–96
[2023-12-28 04:23] LABS: BASOPHILS PERCENT AUTO 0 % (0-2); EOSINOPHILS PERCENT AUTO 0 % (0-6); Hemoglobin 12.2 g/dL (11.5-16.0); IMMATURE GRAN ABSOLUTE AUTO 0.02 K/mm3 (0.00-0.10); IMMATURE GRAN PERCENT AUTO 0 % (0-1); LYMPHOCYTES ABSOLUTE AUTO 0.66 K/mm3 (0.84-5.20); LYMPHOCYTES PERCENT AUTO 10 % (21-46); MONOCYTES ABSOLUTE AUTO 0.21 K/mm3 (0.16-1.47); MONOCYTES PERCENT AUTO 3 % (4-13); Mean Corpuscular HGB 29.3 pg (26.0-34.0); Mean Corpuscular Volume 89 fL (80-100); NEUTROPHILS ABSOLUTE AUTO 5.89 K/mm3 (1.96-9.15); NEUTROPHILS PERCENT AUTO 87 % (41-73); Platelet Count 153 K/mm3 (150-400); RDW Coefficient Variation 13.4 % (11.7-14.2); RDW Standard Deviation 43.8 fL (35.1-46.3); Red Blood Cell Count 4.16 M/mm3 (3.80-5.20); White Blood Cell Count 6.78 K/mm3 (4.00-11.30)
[2023-12-28 04:58] LABS: Albumin, Blood 3.3 g/dL (3.4-5.0); Albumin/Globulin Ratio 1.3 (0.8-1.8); Bilirubin, Total 0.6 mg/dL (0.1-1.0); Bun/Creatinine Ratio 50.5 (12.0-20.0); Calcium, Blood 9.4 mg/dL (8.5-10.1); Creatinine, Blood 0.5 mg/dL (0.40-1.00); Globulin, Blood 2.6 g/dL (2.2-4.0); Potassium, Blood 3.4 mmol/L (3.5-5.5); Total Protein, Blood 5.9 g/dL (6.4-8.2)
--- NOTE | 2023-12-28 06:31 | NUR ---
TWO PRN IV CARDIZEM PUSHES GIVEN THIS SHIFT PER EMAR. NO ACUTE CHANGES, SEE PREVIOUS NOTE.
[2023-12-28] MEDS ORDERED: Potassium Chloride 40 MEQ in NS 250 ML IV ONE (07:15)
[2023-12-28] MEDS ORDERED: dilTIAZem HCL 60 MG CAP.SR PO ONE (08:00)
[2023-12-28] MEDS ORDERED: Diltiazem HCl 180 MG Cap.CD PO SCH (09:00)
[2023-12-28] MEDS ORDERED: Benzonatate 100 MG Cap PO PRN (11:25)
[2023-12-28] MEDS ORDERED: MethylPREDNISolone Sod Succ 125 MG Vial IV SCH (12:00)
--- NOTE | 2023-12-28 15:30 | NUR ---
PT REQUESTED TO TAKE OF MASK AND USE NASAL CANNULA TO BE ABLE TO EAT SOME SNACKS.
--- NOTE | 2023-12-28 17:08 | NUR ---
PT REQUESTED TYLENOL FOR 7/10 PAIN IN LEFT SHOULDER AND ASKED FOR A HEATING PAD. HAS CALL LIGHT WITHIN REACH AND BED AT LOWEST LEVEL.
--- NOTE | 2023-12-28 17:10 | NUR ---
END OF SHIFT SUMMARY: PT A&OX4 AND ACTIVE IN HER CARE. WAS MEDICATED WITH CARDIZEM AT THE START OF SHIFT DUE TO HEART RATE OF 170 PER EMAR BY OTHER NURSE. CARDIZEM DOSE ALONG WITH STEROID DOSE WAS INCREASED.HAS BEEN WEARING HER CPAP MASK SHE HAD BEEN FEELING SOB MOST OF THE DAY.DENIED ANY CHEST PAIN/PRESSURE. SBA TO COMMODE BUT STARTED USING BED MCKEON HEART RATE WOULD INCREASE WITH EXERTION. 12:00 DOSE OF STEROID WAS NOT GIVEN PER PHARMACY PREVIOUS DOSE WAS TOO CLOSE. WAS MEDICATED PER EMAR FOR 7/10 PAIN WITH TYLENOL.
[2023-12-28] MEDS ORDERED: GuaiFENesin 600 MG TabCR PO SCH (21:00)
[2023-12-28] MEDS ORDERED: Lactobacil 2-S.Thermo-Bifido 1 1 Cap PO SCH (21:00)
--- NOTE | 2023-12-28 22:35 | NUR ---
PT IS ALERT AND ORIENTED X 4, COOPERATIVE WITH CARE AND ABLE TO MAKE NEEDS KNOWN. SHE IS ON BIPAP 14/7 30% AND MAINTAINING 02 SATURATION ABOVE 92%, SOB W/EXERTION. PT'S HR AFIB 110'S-120'S, HIGHER WITH EXERTION, SHE DENIES CHEST PAIN/PRESSURE. BP STABLE. PT IS CONTINENT OF BLADDER AND BOWELS. PT HAS BEEN USING BED MCKE[place] W/ASSISTANCE BECAUSE DAY SHIFT NURSE SAID WHEN PT WOULD GET UP TO BEDSIDE COMMODE HER HR WOULD GO UP TO 160'S-180'S. PT TOLERATES BEDPAN WELL. PT SAID SHE IS TIRED AND WANTS TO SLEEP. UNLABORED BREATHING PATTERN AND BIPAP ON. CALL LIGHT WITHIN REACH.
[2023-12-29 03:05] VITALS: BP 156/96
[2023-12-29 04:03] LABS: BASOPHILS ABSOLUTE AUTO 0.01 K/mm3 (0.00-0.23); BASOPHILS PERCENT AUTO 0 % (0-2); EOSINOPHILS PERCENT AUTO 0 % (0-6); Hematocrit 40.6 % (33.0-51.0); Hemoglobin 13.4 g/dL (11.5-16.0); IMMATURE GRAN ABSOLUTE AUTO 0.04 K/mm3 (0.00-0.10); IMMATURE GRAN PERCENT AUTO 0 % (0-1); LYMPHOCYTES ABSOLUTE AUTO 0.64 K/mm3 (0.84-5.20); LYMPHOCYTES PERCENT AUTO 6 % (21-46); MONOCYTES ABSOLUTE AUTO 0.18 K/mm3 (0.16-1.47); MONOCYTES PERCENT AUTO 2 % (4-13); Mean Corpuscular HGB 29.3 pg (26.0-34.0); Mean Corpuscular Volume 89 fL (80-100); Mean Platelet Volume 10.5 fL (9.1-12.4); NEUTROPHILS ABSOLUTE AUTO 9.84 K/mm3 (1.96-9.15); NEUTROPHILS PERCENT AUTO 92 % (41-73); Platelet Count 185 K/mm3 (150-400); RDW Coefficient Variation 13.5 % (11.7-14.2); RDW Standard Deviation 43.8 fL (35.1-46.3); Red Blood Cell Count 4.58 M/mm3 (3.80-5.20); White Blood Cell Count 10.71 K/mm3 (4.00-11.30)
[2023-12-29 04:32] LABS: Albumin, Blood 3.4 g/dL (3.4-5.0); Albumin/Globulin Ratio 1.1 (0.8-1.8); Bilirubin, Total 0.6 mg/dL (0.1-1.0); Bun/Creatinine Ratio 65.8 (12.0-20.0); Calcium, Blood 9.8 mg/dL (8.5-10.1); Creatinine, Blood 0.44 mg/dL (0.40-1.00); Potassium, Blood 3.6 mmol/L (3.5-5.5); Total Protein, Blood 6.4 g/dL (6.4-8.2)
--- NOTE | 2023-12-29 05:12 | NUR ---
NO ACUTE CHANGES, SEE PREVIOUS NOTE.
[2023-12-29 07:33] VITALS: BP 152/65
[2023-12-29] MEDS ORDERED: Diltiazem HCl 180 MG Cap.CD PO SCH (09:00)
[2023-12-29] MEDS ORDERED: dilTIAZem HCL 240 MG CAP.CD PO SCH (09:00)
[2023-12-29] MEDS ORDERED: dilTIAZem HCL 120 MG CAP.CD PO ONE (09:25)
--- NOTE | 2023-12-29 10:44 | NUR ---
Spiritual Care visit Attempted Pt. intiially welcomed this metal lather but verbalized that she was not feeling well and requested this metal lather return at a later time. Will remain available [place] Pt.
[2023-12-29 12:42] VITALS: BP 128/84
[2023-12-29] MEDS ORDERED: Morphine Sulfate 20 MG/1ML 1 ML Oral Syringe SL PRN (15:00)
[2023-12-29] MEDS ORDERED: LORazepam 2 MG/ML 1ML Injection IV PRN (15:00)
[2023-12-29] MEDS ORDERED: LORazepam 1 MG Tab PO PRN (15:00)
[2023-12-29] MEDS ORDERED: Morphine Sulfate 10 MG/ML 1MLSYR IV PRN (15:00)
--- NOTE | 2023-12-29 15:09 | NUR ---
Met with pt today, discussed trajectory of pt's declining respiratory status r/t COPD. She has not been willing to discuss comfort in the past, but states she is "tired" and feels her breathing is only continuing to get worse. She stated feeling really good about the comfort medications, as I explained they will be very beneficial in treating air hunger and anxiety. Dr. Roy is also going to stop and talk with the patient, let her know she is being supported in her decision. RT aware, and will not be d/c'ing bipap until the patient's SOB and anxiety are well-managed.
--- NOTE | 2023-12-29 15:24 | NUR ---
MD RIVAS TALKED TO PT REGARDING COMFORT CARE MEASURES AND PT EXPRESSED PALLIATIVE CARE NURSE AND MD RIVAS BE PRESENT TOMORROW TO HELP TELL HER DAUGHTERS. PT REQUESTED ROXONOL TO "FEEL A LITTLE REST". PT STATED SHE WOULD LIKE TO CONTINUE HER CURRENT MEDICATION REGIMEN WHILE HERE. HAS CALL LIGHT WITHIN REACH AND BED AT THE LOWEST LEVEL.
[2023-12-29 15:41] VITALS: BP 147/75
[2023-12-29] MEDS ORDERED: MethylPREDNISolone Sod Succ 125 MG Vial IV SCH (16:00)
--- NOTE | 2023-12-29 17:00 | NUR ---
END OF SHIFT SUMMARY: A&OX4 AND ACTIVE IN HER CARE. IS ON TELE SHOWING AFIB W/ RATE IN 100'S. ALTERNATING BETWEEN BIPAP AND NC AND MAINTAING SAT >90%. CARDIZEM PO WAS INCREASED TO 360MG PER MD ORDER. HER STEROID FREQUENCY WAS CHANGED TO EVERY 8HRS PER MD ORDER WELL. IS 1 PERSON ASSSIT TO USE BED MCKEON HER HEART RATE INCREASES W/ EXERTION. PALLIATITVE CARE CONSULT WAS OREDERED AND PT REQUESTED TO START ON COMFORT CARE. REQUESTED THAT PALLIATIVE CARE NURSE BE PRESENT TO HELP TALK TO DAUGHTERS TOMORROW WHEN THEY COME. SHE STATED SHE WOULD "LIKE TO FIGHT IT" BUT "GET A LITTLE REST" AND WAS MEDICATED WITH ROXANOL BY OTHER NURSE. STILL ADHERING TO CURRENT MEDICATION REGIMEN WHILE HERE. WILL NOTIFY ONCOMING [place] [employer]DER[employer] NURSE.
--- NOTE | 2023-12-29 17:25 | NUR ---
"Spiritual Care Attempted | Comfort Care Having received a Palliative care consult, and confirming with nurse Samuel, visited the Pt. Pt. is on her Bipap and is somnolent and resting soundly. Prayed for the Pt."
[2023-12-29 20:20] VITALS: BP 142/73
[2023-12-30] VITALS (8 sets, daily range): BP systolic 130–161; BP diastolic 78–109
[2023-12-30 04:00] LABS: BASOPHILS PERCENT AUTO 0 % (0-2); EOSINOPHILS PERCENT AUTO 0 % (0-6); Hematocrit 37.7 % (33.0-51.0); Hemoglobin 12.4 g/dL (11.5-16.0); IMMATURE GRAN ABSOLUTE AUTO 0.03 K/mm3 (0.00-0.10); IMMATURE GRAN PERCENT AUTO 0 % (0-1); LYMPHOCYTES ABSOLUTE AUTO 0.76 K/mm3 (0.84-5.20); LYMPHOCYTES PERCENT AUTO 9 % (21-46); MONOCYTES PERCENT AUTO 2 % (4-13); Mean Corpuscular HGB Conc 32.9 g/dL (31.5-36.5); Mean Corpuscular Volume 88 fL (80-100); Mean Platelet Volume 10.9 fL (9.1-12.4); NEUTROPHILS PERCENT AUTO 89 % (41-73); Platelet Count 196 K/mm3 (150-400); RDW Coefficient Variation 13.6 % (11.7-14.2); RDW Standard Deviation 43.9 fL (35.1-46.3); Red Blood Cell Count 4.28 M/mm3 (3.80-5.20); White Blood Cell Count 8.59 K/mm3 (4.00-11.30)
[2023-12-30 04:31] LABS: Albumin, Blood 3.2 g/dL (3.4-5.0); Albumin/Globulin Ratio 1.2 (0.8-1.8); Bilirubin, Total 0.5 mg/dL (0.1-1.0); Bun/Creatinine Ratio 71.2 (12.0-20.0); Calcium, Blood 9.3 mg/dL (8.5-10.1); Creatinine, Blood 0.56 mg/dL (0.40-1.00); Globulin, Blood 2.7 g/dL (2.2-4.0); Potassium, Blood 3.7 mmol/L (3.5-5.5); Total Protein, Blood 5.9 g/dL (6.4-8.2)
--- NOTE | 2023-12-30 05:07 | NUR ---
SHIFT SUMMARY JONY WAS ALERT AND FULLY ORIENTED ON ASSESSMENT, PER REPORT PT IS TRANSITIONING TO COMFORT CARE MEASURES, BUT IS STILL ON BIPAP. PT SATTING >96% PT REQUESTED PRN ATIVAN FOR ANXIETY AND SLEEP WHICH WAS EFFECTIVE. NO ACUTE EVENTS OR CHANGES TO PT CONDITION TONIGHT. PT RESTING IN BED AT A LOW POSITION WITH CALL LIGHT IN REACH.
--- NOTE | 2023-12-30 16:35 | NUR ---
BIPAP ALARMING; MASK DOWN BELOW PT NOSE WHILE SLEEPING. ADJUSTED AND ALARMS SOTPPED.
--- NOTE | 2023-12-30 18:27 | NUR ---
DAY SHIFT SUMMARY: A&Ox4. PLEASANT AND COOPERATIVE WITH CARE. CALLS APPROPRIATELY AND IS ABLE TO COMMUNICATE NEEDS EFFECTIVELY. BEDFAST WITH BEDPAN USE. MEDS WHOLE WITH FLUIDS. BiPAP WHEN NOT EATING. DISCUSSION REGARDING COMFORT MEASURED VS. AGGRESSIVE TREATMENT; SHE WANTS BOTH. SHE AND PROVIDER DECIDED ON COMFORT MEASURES WHILE MAINTAINING BD PROTOCOL AND IV STEROIDS. ATIVAN AND MORPHINE ADMINISTERED x2 AIR HUNGER WITH CONTRACTIONS, ESPECIALLY WITH MEALS WHEN BiPAP IS OFF. PLANS TO DISCUSS FULL COMFORT MEASURES AND HOSPICE REFERRAL WITH FAMILY TOMORROW. IV CARDIZE GIVEN THIS MORNING FOR SUSTAINED HR >130; CARDIZEM AND TELE DC'D THEREAFTER. O2 4LPM VIA NC AND BiPAP. REPORT TO ONCOMING RN.
[2023-12-30] MEDS ORDERED: MethylPREDNISolone Sod Succ 125 MG Vial IV SCH (21:00)
[2023-12-31 00:56] VITALS: BP 137/89
--- NOTE | 2023-12-31 03:14 | NUR ---
COMPRESSOR STATION ENGINEER SUMMARY VSS. ALERT AND ORIENTED TO QUESTIONS ASKED. ON OXYGEN PER NC DURING THE DAY, CPAP AT NIGHT. HOB ELEVATED AND LOWERED FOR RESP COMFORT PER PT REQUEST. PAIN MEDS OF TYLENOL AND ROXINOL ADMIN FOR HEADACHE AND SOME PAIN OF RIGHT SIDE. ALSO ASKED FOR AND RECEIVED "ANXIETY" MED (ATIVAN). MEDS EFFECETIVE HAS BEEN RESTING QUIETLY WITH FEW INTERRUPTIONS THROUGH SHIFT. AFFECT PLEASANT. MARYLOU BAUER REPORTED PT CARE IS BEING TRANSITIONED TO COMFORT FOCUS IN THE FUTURE AND POSSIBLE TALK WITH HOSPICE IN THE NEAR FUTURE. CALL LIGHT IN REACH, RAILS UP X 2 AND BED IN LOW POSITION FOR SAFETY. WILL CONTINUE TO MONITOR.
[2023-12-31 04:34] VITALS: BP 163/97
[2023-12-31] MEDS ORDERED: DULoxetine HCL 60 MG Capsule DR PO SCH (09:00)
--- NOTE | 2023-12-31 11:30 | NUR ---
TRANSFER SUMMARY PT WAS ON BIPAP AND MOVED OVER TO 4L NC FOR TRANSPORT TO [facility]. MET PRIMARY RN AT ROOM AND DISCUSSED UPDATES. PT HAD BELONGINGS BROUGHT UP WITH HER. SETTLED INTO ROOM WITH STAFF PRESENT. STABLE AT TIME OF TRANSPORT.
--- NOTE | 2023-12-31 12:30 | NUR ---
PT TRANSFERRED FROM PCU TO ROOM 361. 4L O2 VIA NC IN PLACE. STATES THIS IS FINE FOR OXYGEN DEMAND AT THIS TIME. REQUESTS PEPSI AND ICE WATER. REPORT RECIEVED FROM MISHEL/JAMSHID. NO FURTHER NEEDS AT THIS TIME.
--- NOTE | 2023-12-31 13:08 | NUR ---
PT REQUESTING PAIN, ANXIETY MEDS AND BREATHING TX. RT PLACED PT BACK ON CPAP AFTER TREATMENT COMPLETE. NO FURTHER NEEDS AT THIS TIME.
--- NOTE | 2023-12-31 16:01 | NUR ---
ASSESSED OJNY SHE APPEARED COMFORTABLE. SHE WAS ASLEEP AND ON THE CPAP. I DISCUSSED THIS CASE WITH THE BEDSIDE RN. SHE IS BEING TRANSFERED TO MEDICAL FLOOR TODAY.
--- NOTE | 2023-12-31 17:39 | NUR ---
SHIFT SUMMARY: PT MEDICATED FOR PAIN AND ANXIETY X1 THIS SHIFT. PLANS FOR DISCHARGE HOME ON HOSPICE BUT DR AWAITING PT TO HAVE DISCUSSION WITH FAMILY. NO FAMILY TO BEDSIDE THIS SHIFT. DENIES NEEDS OR CONCERNS AT THIS TIME.
--- NOTE | 2024-01-01 05:25 | NUR ---
SHIFT SUMMARY: PATIENT PLANS TO GO ON PALLIATIVE CARE, BUT WANTS TO SPEAK TO HER DAUGHTERS FIRST. FRIEND CAME FOR A VISIT, BUT NO FAMILY THIS SHIFT. PATIENT REQUESTED APAP FOR PAIN AND FOUND IT EFFECTIVE. SHE USED 4L O2 CONTINUOUS VIA NC WHILE AWAKE, AND SWITCHED TO HER CPAP AT NIGHT. SHE HAS BEEN USING BEDPAN TO URINATE. EXPIRATORY WHEEZING TO UPPER LOBES BILATERALLY NOTED AT BEGINNING OF SHIFT, WITH LOWER LOBES DIMINISHED. Q4H COMFORT CARE ASSESSMENTS DONE. IV IN SKYE PATENT. PATIENT PLEASANT AND COOPERATIVE WITH CARES.
[2024-01-01] MEDS ORDERED: PredniSONE 20 MG Tab PO SCH (09:00)
--- NOTE | 2024-01-01 18:48 | NUR ---
SHIFT SUMMARY PT AOX4, BR. COMFORT CARE. MEDICATED FOR PAIN AND ANXIETY PER THE EMAR. PT HAS HAD NO ACUTE ISSUES. WEARS THE CPAP MOST OF THE DAY FOR SLEEP. FAMILY AT THE BS TODAY. CALL LIGHT WITHIN REACH, BED LOCKED AND IN THE LOWEST POSITION. WILL REPORT TO ONCOMING NURSE.
--- NOTE | 2024-01-02 06:35 | NUR ---
SHIFT SUMMARY: Pt admitted for copd exacerbation and is a DNR. is here for comfort care. Is alert and able to make needs known. Pain has been managed with PRN pain medications. ADLs has been 1p but did not get out of bed.
[2024-01-02 08:15] VITALS: BP 153/94
--- NOTE | 2024-01-02 18:28 | NUR ---
pt on comfort care. pt pleasant today. usually expresses thanks when giving her medications. presently resting, eyes closed, on cpap. 4l o2 bleed in. lungs wheezy upper and dim bases. on 4l o2 n/c. medicated for pain and anxiety as needed today. I have not seen patients family today. expecting home tomorrow. bed in low position, call lite in reach, calls approp
[2024-01-02 20:19] VITALS: BP 134/86
--- NOTE | 2024-01-03 05:15 | NUR ---
SHIFT SUMMARY-COMFORT CARE PT. IS ON COMFORT CARE. PT. USED BI/C-PAP DURING THIS SHIFT. PT. HAS NC BY HER LIPS/CLOSE TO MOUTH AT 4LITERS. AT HS, DAUGHTER DESI AND HER , REQUESTING IF THEY ARE ABLE TO TAKE PT.HOME TODAY. MEDS GIVEN ORDERED FOR COMFORT CARE. PT. HAS SOME RATTLE BREATHING, HOB UP 30-40 DEGREES. PT. ABLE TO TAKE PO MEDS, AND IS A&O X 4, ABLE TO MAKE HER NEEDS KNOWN. NO EVENTS DURING THIS SHIFT. WILL HAND OFF TO THE INCOMING SHIFT NURSE.
[2024-01-03 09:15] VITALS: BP 153/100
--- NOTE | 2024-01-03 15:27 | NUR ---
[facility]. Patient is resting in bed but easily awakens to the sound of her name. She shares that she is struggling and that she would appreciate prayer, which I gladly supply. Patient voices an "amen" and a "thankyou" and falls back into her restful state. I will continue to remain available.
--- NOTE | 2024-01-03 17:54 | NUR ---
SHIFT SUMMARY: PATIENT ON COMFORT CARE MEASURES, A/OX4, LETHARGIC, EASILY AROUSABLE TO VERBAL STIMULI, ANSWER TO QUESTIONS APPROPRIATELY AND ABLE TO MAKE NEEDS KNOWN. PATIENT STILL ON 4L O2 VIA NC FOR COMFORT. PATIENT REPOSITIONED, MEDICATED c COMFORT CARE MEDS PER EMAR c GOOD EFFECT. PATIENT LAYING IN BED APPEARS TO BE RESTING COMFORTABLY T/O SHIFT. PATIENT REFUSED BEDBATH AND LINEN CHANGED TODAY. PATIENT ONLY TAKES SIPS OF H20, CONTINENCE OF BLADDER AND USES BEDPAN c 2 ASSIST TO ROLL ON HER SIDE. PATIENT HAS NO COMPLAINTS THIS SHIFT. BED ALARM ON FOR SAFETY. CALL LIGHT IN REACH.
--- NOTE | 2024-01-04 05:43 | NUR ---
SHIFT SUMMARY-COMFORT CARE PT. HAS BEEN ABLE TO MAKE HER NEEDS KNOWN. USING BIPAP AT NOC AND 4L VIA NC FREDRICK AND AM HRS. FAMILY SPENDING THE NIGHT WITH THE PT. MEDICATED ORDERED FOR COMFORT, PAIN AND AIRHUNGER. WILL HAND OFF TO INCOMING SHIFT NURSE. NO ACUTE EVENTS DURING THIS SHIFT.
[2024-01-04 08:39] VITALS: BP 155/87
--- NOTE | 2024-01-04 12:16 | NUR ---
IV REMOVED. ALL PERSONAL BELONGINGS SENT HOME WITH PT VIA AMBULANCE TRANSPORT OR FRIEND, GABINO. PT TRANSPORTED HOME VIA [facility]. PER FAMILY SERVICE CASEWORKER, DISCHARGED HOME ON HOSPICE, DAUGHTER TO BE PRIMARY CAREGIVER. PAPERWORK GIVEN TO AMBULANCE TRANSPORT TEAM.
[2024-01-04] MEDS ORDERED: Tessalon200 MG PO (12:36)
[2024-01-04] MEDS ORDERED: GUAIFENESIN ER600 MG PO (12:37)
[2024-01-04] MEDS ORDERED: MORP20L PO (12:37)
[2024-01-04] MEDS ORDERED: ONDA4 PO (12:38)
== END 2024-01-04 14:30 | disposition hospice, home (50) | DRG 189 ==
LOC: ER 14:16 → PCU 14:17 → MEDS 12-27 15:20 → PCU 12-27 15:21 → MEDS 12-31 11:20 → ENPENDDIS 01-03 13:07 → MEDS 01-04 14:30
PROVIDERS: Emergency Medicine; Nurse Practitioner Acute Care; ADMIT Family Medicine
PROC: 5A09557 Assistance with Respiratory Ventilation, Greater than 96 Consecutive Hours, Continuous Positive Airway Pressure (ICD-10-PCS; principal; 2023-12-26)
DX: J96.21 Acute and chronic respiratory failure with hypoxia (principal); J44.1 Chronic obstructive pulmonary disease with (acute) exacerbation; R65.10 Systemic inflammatory response syndrome (SIRS) of non-infectious origin without acute organ dysfunction; Z71.6 Tobacco abuse counseling; J96.22 Acute and chronic respiratory failure with hypercapnia; Z66 Do not resuscitate; Z51.5 Encounter for palliative care; E87.6 Hypokalemia; I10 Essential (primary) hypertension; F32.A Depression, unspecified; E78.5 Hyperlipidemia, unspecified; G89.4 Chronic pain syndrome; E66.9 Obesity, unspecified; Z99.81 Dependence on supplemental oxygen; M79.7 Fibromyalgia; Z88.8 Allergy status to other drugs, medicaments and biological substances; G47.33 Obstructive sleep apnea (adult) (pediatric); K21.9 Gastro-esophageal reflux disease without esophagitis; T38.0X5A Adverse effect of glucocorticoids and synthetic analogues, initial encounter; F41.9 Anxiety disorder, unspecified; I48.0 Paroxysmal atrial fibrillation; Z79.01 Long term (current) use of anticoagulants; Z79.899 Other long term (current) drug therapy; Z79.51 Long term (current) use of inhaled steroids; Z79.52 Long term (current) use of systemic steroids; Z68.26 Body mass index [BMI] 26.0-26.9, adult; Z98.51 Tubal ligation status; Z90.710 Acquired absence of both cervix and uterus
CPT/HCPCS: 0241U; 36415; 71045; 80053; 82803; 83735; 83880; 84484; 85025; 85027; 85379; 93005; 93010; 94640; 94644; 94660; 94664; 94760; 94762; 96365; 96375; 96376; 99285-25; A9270; C9113; G0378; J0456; J2405; J2930; J3475; J3480; J7030; J7050; J7512